=== PATIENT | female | born 1960 | race Hispanic/Latino ===

== ENCOUNTER 2017-01-25 13:21 | Outpatient (CLI) | payer BC ==
--- NOTE | 2017-01-25 15:42 | Mammography Report ---
BILATERAL DIGITAL DIAGNOSTIC MAMMOGRAM with CAD and LEFT BREAST ULTRASOUND: 01/25/17 CLINICAL: Palpable lump left breast. According to the patient, she felt a lump in her lower inner left breast about one week ago. It has gotten larger she now has a draining wound. COMPARISON:None. FINDINGS: There are bilateral scattered fibroglandular densities. No mass, suspicious architectural distortion or suspicious calcifications . Focal skin thickening and mammographic asymmetry in the lower inner left breast. There is also an air-filled cavity in the thickened skin. Ultrasound of the left breast (including all four quadrants and the retroareolar area) was performed. A heterogeneous oval mass is identified at 8 o'clock 20 cm from the nipple. It measures 3.4 x 1.2 x 3.4 cm and has fluid in the center. Echogenic reflectors consistent with air are also identified near the skin. On physical examination, the skin is reddened in the area of palpable mass with foul-smelling drainage. A gangrenous eschar is at the center of the palpable mass. IMPRESSION: Focal necrotizing infection with abscess formation in the lower inner left breast. Although tumor cannot entirely be excluded, the mammographic and ultrasound findings are more compatible with an infectious process. BI-RADS CATEGORY: 4--Suspicious RECOMMENDATION: Consultation with a breast surgeon. I discussed the findings with the patient and arranged for her to see Dr. Ashley Claros tomorrow at [facility] in [place], [place]. ACR BI-RADS MAMMOGRAPHIC CODES: 0 = Needs additional imaging evaluation; 1 = Negative; 2 = Benign; 3 = Probably benign; 4 = Suspicious; 5 = Malignant; 6 = Known biopsy-proven malignancy COMMENT: 1. Dense breast tissue, i.e., adenosis, fibrocystic changes, etc., may obscure an underlying neoplasm. 2. Approximately 10% of cancers are not detected with mammography. 3. A negative mammography report should not delay biopsy if a clinically suspicious mass is present. COMMENT: Patient follow-up letters are generated by our Shareable Social application.
== END 2017-01-25 13:22 | disposition home or self-care (01) ==
LOC: SPVWC 13:21
DX: N63 Unspecified lump in breast (principal); N64.4 Mastodynia
CPT/HCPCS: 76641; G0204; 77066

== ENCOUNTER 2017-01-26 19:35 | Inpatient (IN) | payer BC ==
[2017-01-26] MEDS ORDERED: DULCOLAX PR PRN (19:45)
[2017-01-26] MEDS ORDERED: DUONEB *Not for PRN Use IH (19:45)
[2017-01-26] MEDS ORDERED: MILK OF MAGNESIA PO PRN (19:45)
[2017-01-26] MEDS ORDERED: TYLENOL PO PRN (19:45)
[2017-01-26] MEDS ORDERED: ZOFRAN IV PRN (19:45)
[2017-01-26] MEDS ORDERED: VANCOMYCIN/NS 1 GM/250 ML 1 GM/250 ML BAG IV ONE (19:49)
--- NOTE | 2017-01-26 19:56 | History and Physical Report ---
History of Present Illness Date of admission: 01/26/17 19:35 Chief complaint: My doctor told me to come get checked out History of present illness: 56 YO Female with DM, Obesity, Depression, Asthma, PE on anticoagulation, Metabolic Syndrome directly admitted at the request of Dr. Claros for Necrotizing Left Breast infection. Pt was seen and evaluated and recommended for admission. Pt states that she has experienced redness, tenderness, and rash to the left breast for the past week, with worsening symptoms over the past 3 days. Pt denies fever, chills, CP, Palpitations, NVD, productive cough, or recent ill contacts, trauma, prolonged travel/immobility, unintentional weight loss, or night sweats. Past History Past Medical History: diabetes, pulmonary embolism, other (metabolic syndrome) Past Surgical History: tonsillectomy, Other (Gastric Bypass, TMJ, Sinus surgery x4, IVC Filter placement,) Social history: , lives with family. denies: smoking, alcohol abuse, prescription drug abuse Family history: no significant family history (reviewed) Medications and Allergies Allergies Allergy/AdvReac Type Severity Reaction Status Date / Time No Known Allergies Allergy Unverified 01/26/17 20:01 Home Medications Medication Instructions Recorded Confirmed Last Taken Type Acetaminophen with Codeine 1 each PO Q6HR PRN 01/27/17 01/27/17 Unknown History [Acetaminophen-Codeine #2 TAB] Clindamycin [Clindamycin CAP] 300 mg PO Q8H 01/27/17 01/27/17 Unknown History Cyclobenzaprine [Flexeril] 10 mg PO DAILY 01/27/17 01/27/17 Unknown History Furosemide [Lasix TAB] 40 mg PO QDAY 01/27/17 01/27/17 Unknown History Metformin HCl [Glucophage] 1,000 mg PO BID 01/27/17 01/27/17 Unknown History Mometasone/Formoterol [Dulera 100 2 puff IH BID 01/27/17 01/27/17 Unknown History Mcg/5 Mcg Inhaler] Montelukast [Singulair] 10 mg PO QPM 01/27/17 01/27/17 Unknown History Potassium Chloride [K-Dur] 1 tab PO BID 01/27/17 01/27/17 Unknown History Potassium Chloride [Potassium 01/27/17 Unknown History Chloride] Pravastatin Sodium [Pravastatin] 10 mg PO QHS 01/27/17 01/27/17 Unknown History Venlafaxine [Effexor 37.5mg tab] 112.5 mg PO QDAY 01/27/17 01/27/17 Unknown History Warfarin [Coumadin] 10 mg PO 3XW 01/27/17 01/27/17 Unknown History Warfarin [Coumadin] 15 mg PO 4XW 01/27/17 01/27/17 Unknown History Zolpidem Tartrate [Edluar SUBL] 10 mg SL QHS PRN 01/27/17 01/27/17 Unknown History glipiZIDE [Glucotrol] 5 mg PO BID 01/27/17 01/27/17 Unknown History Active Meds: Active Medications Acetaminophen (Tylenol) 650 mg PO Q4H PRN PRN Reason: Pain MILD(1-3)/Fever >100.5/ACOSTA Albuterol/Ipratropium (Duoneb 0.5 Mg-3 Mg/3 Ml Soln) 1 ampul IH Q6HRT PRN PRN Reason: Wheezing Bisacodyl (Dulcolax) 10 mg HI QDAY PRN PRN Reason: Constipation unrelieved by MOM Vancomycin HCl (Vancomycin/Ns 1 Gm/250 Ml) 1 gm in 250 mls @ 167.007 mls/hr IV ONCE ONE PRN Reason: Protocol Stop: 01/26/17 21:18 Magnesium Hydroxide (Milk Of Magnesia) 30 ml PO Q4H PRN PRN Reason: Constipation Ondansetron HCl (Zofran) 4 mg IV Q8H PRN PRN Reason: N/V unrelieved by Reglan Vancomycin HCl (Vancomycin Pharmacy To Dose) 1 each IV PKCONSULT WILIAN PRN Reason: Protocol Review of Systems All systems: negative Constitutional: other (left breast pain, redness) Exam - Constitutional General appearance: Present: mild distress, obese - EENT Eyes: Present: PERRL ENT: hearing intact, clear oral mucosa - Neck Neck: Present: supple, normal ROM - Respiratory Respiratory effort: normal Respiratory: bilateral: CTA - Cardiovascular Heart Sounds: Present: S1 & S2. Absent: rub, click - Extremities Extremities: pulses symmetrical, No edema Extremity abnormal: erythema, tenderness (left breast) Peripheral Pulses: within normal limits - Abdominal General gastrointestinal: Present: soft, non-tender, non-distended, normal bowel sounds Female genitourinary: Present: normal - Integumentary Integumentary: Present: clear, warm, dry - Musculoskeletal Musculoskeletal: gait normal, strength equal bilaterally - Psychiatric Psychiatric: appropriate mood/affect, intact judgment & insight - Neurologic Neurologic: CNII-XII intact, moves all extremities Results - Labs CBC & Chem 7: 01/26/17 22:18 01/26/17 22:18 Assessment and Plan - Patient Problems (1) Left breast abscess Current Visit: Yes Status: Acute Plan to address problem: IV abx, surgery consulted for debridement, supportive care,pain control (2) Pulmonary embolism Current Visit: Yes Status: Acute Qualifiers: Pulmonary embolism type: P Chronicity: C Acute cor pulmonale presence: A Plan to address problem: IVC filter in place, INR, hold anticoagulation for now, hematology consulted. (3) Elevated INR (international normalized ratio) Current Visit: Yes Status: Acute Plan to address problem: INR< hold anticoagulation for now as per hematology (4) Metabolic syndrome Current Visit: Yes Status: Acute Plan to address problem: Balanced diet, increased physical activity (5) Diabetes Current Visit: Yes Status: Acute Qualifiers: Diabetes mellitus type: D Diabetes mellitus complication status: D Diabetes mellitus complication detail: D Diabetic retinopathy severity: D Proliferative retinopathy type: P Diabetes mellitus macular edema: D Diabetes mellitus correction insulin use: D Laterality: L Chronic kidney disease stage: C Plan to address problem: ADA diet, insulin, accu check (6) Asthma Current Visit: Yes Status: Acute Qualifiers: Asthma severity: mild intermittent Asthma complication type: A Plan to address problem: supplemental oxygen, nebs prn as clinically indicated. (7) DVT prophylaxis Current Visit: Yes Status: Acute
[2017-01-26] MEDS ORDERED: VANCOMYCIN PHARMACY TO DOSE IV SCH (20:00)
[2017-01-26] MEDS ORDERED: PROVENTIL IH PRN (20:05)
[2017-01-26] MEDS ORDERED: VANCOMYCIN 2,000 MG in NACL 0.9% 500 ML 500 ML IV ONE (22:00)
[2017-01-26 22:47] LABS: Basophils % (Auto) 0.9 % (0.0-1.8); Eosinophils % (Auto) 2.8 % (0.0-4.3); Hemoglobin 10.2 gm/dl (10.1-14.3); Mean Corpuscular HGB Conc 33 % (30-34); Mean Corpuscular Hemoglobin 30 pg (28-32); Mean Corpuscular Volume 92 fl (79-97); Platelet Count 283 K/mm3 (140-440); Red Blood Count 3.37 M/mm3 (3.65-5.03); Red Cell Distribution Width 14.6 % (13.2-15.2); White Blood Count 6.1 K/mm3 (4.5-11.0)
[2017-01-26 23:01] LABS: Alanine Aminotransferase 12 units/L (7-56); Albumin 3.7 g/dL (3.9-5); Alkaline Phosphatase 69 units/L (35-129); Anion Gap 15 mmol/L; BUN/Creatinine Ratio 18.33; Blood Urea Nitrogen 11 mg/dL (7-17); Calcium 8.9 mg/dL (8.4-10.2); Carbon Dioxide 30 mmol/L (22-30); Glucose 155 mg/dL (65-100); Potassium 4.3 mmol/L (3.6-5.0); Sodium 135 mmol/L (137-145); Total Protein 7.5 g/dL (6.3-8.2)
--- NOTE | 2017-01-26 23:15 | Progress Note ---
Assessment and Plan This is a 56 year old lady with left breast necrotizing fasciitis of the left lower inner quadrant. 1. Patient was scheduled for OR January 27, 2017, but will hold until now until INR corrected, INR over 6 and consulted hospitalist for admission. 2. Dr. Fontana consulted. 3. IVF antibiotics of Vancomycin and blood cultures. 4. Plan for left breast debridement once INR at least 3 or less, will plan for operating room on Monday, January 28, 2017. Dr. Fontana will administer FFP and vitamin K and will evaluate patient if coumadin is still needed given PE 2 years ago. 5. NPO at midnight and will recheck INR after FFP and vitamin K is administered. 6. Will arrange for home health at discharge. - Patient Problems (1) Diabetes Current Visit: Yes Status: Acute Qualifiers: Diabetes mellitus type: type 2 Diabetes mellitus complication status: with skin complications Diabetes mellitus complication detail: with other skin complication Diabetic retinopathy severity: D Proliferative retinopathy type : P Diabetes mellitus macular edema: D Diabetes mellitus manager terminal insulin use: unspecified skilled nursing insulin use status Laterality: L Chronic kidney disease stage: C Qualified Code(s): E11.628 - Type 2 diabetes mellitus with other skin complications Plan to address problem: Diabetes control (2) Breast infection in female Current Visit: Yes Status: Acute Plan to address problem: Surgical debridement (3) Overweight Current Visit: Yes Status: Acute (4) Coagulation defect Onset Date: ~01/26/17 Current Visit: Yes Status: Acute Plan to address problem: Dr. Fontana consulted Subjective Date of service: 01/26/17 Principal diagnosis: left breast infection, abnormal INR, diabetic Interval history: This is a 56 year old lady seen in my office late this afternoon for evaluation of left breast changes. She reports greater than a 1 week history of left breast changes. She was recently seen by Dr. Sherman on Monday with concerns of left breast infection. Physical today in my office with findings of left lower inner quadrant breast necrotising fasciitis with recommendation for debridement. Patient with a history of a pulmonary embolism and has been on Coumadin for 2 years and no recent INR-over 3 months. Patient was directed to lab this evening with plans of going to the OR in the morning but admitted given INR over 6. Patient afebrile and was started on Clindamycin by outside physician. Patient also a known diabetic with HbA1c 7. Objective - Constitutional General appearance: Present: no acute distress, well-nourished - EENT Eyes: PERRL, EOM intact ENT: hearing intact, clear oral mucosa, dentition normal Ears: bilateral: normal - Neck Neck: supple, normal ROM - Respiratory Respiratory effort: normal Respiratory: bilateral: CTA - Breasts Breasts: other (left breast necrosis around the 8:00 position with wet eschar of 5-6 cm, odorous; right breast with normal findings) - Cardiovascular Rhythm: regular Extremities: no ischemia, pulses intact, pulses symmetrical, No edema, normal temperature, normal color, Full ROM - Gastrointestinal General gastrointestinal: Present: soft, non-tender, non-distended Rectal Exam: deferred - Genitourinary Female genitourinary: deferred - Integumentary Integumentary: clear, warm, dry - Musculoskeletal Musculoskeletal: strength equal bilaterally - Neurologic Neurologic: CNII-XII intact, moves all extremities, gait normal - Psychiatric Psychiatric: appropriate mood/affect, intact judgment & insight, memory intact, cooperative - Labs CBC & Chem 7: 01/26/17 22:18 01/26/17 22:18 Labs: Abnormal lab results 01/26/17 01/26/17 01/26/17 Range/Units 22:18 22:18 22:18 RBC 3.37 L (3.65-5.03) M/mm3 [place] % (Auto) 10.8 H (0.0-7.3) % PT 61.4 H (12.2-14.9) Sec. Sodium 135 L (137-145) mmol/L Chloride 94.0 L (98-107) mmol/L Creatinine 0.6 L (0.7-1.2) mg/dL Glucose 155 H (65-100) mg/dL Albumin 3.7 L (3.9-5) g/dL
[2017-01-26 23:17] LABS: INR 6.62 (0.87-1.13)
[2017-01-27] MEDS ORDERED: AMBIEN PO PRN (02:34)
[2017-01-27] MEDS ORDERED: COLACE PO PRN (02:37)
[2017-01-27] MEDS: EFFEXOR PO SCH ×3 (08:11→21:40)
[2017-01-27] MEDS: GLUCOPHAGE PO SCH ×2 (08:12→17:52)
[2017-01-27] MEDS: CLEOCIN PO SCH ×3 (08:12→21:40)
[2017-01-27] MEDS: GLUCOTROL PO SCH ×2 (08:12→17:52)
[2017-01-27] MEDS ORDERED: VITAMIN K (ADULT ONLY) SUB-Q ONE ×2 (08:47→18:00)
--- NOTE | 2017-01-27 08:55 | Hem/Onc Consultation ---
History of Present Illness - Reason for Consult Consult date: 01/27/17 - History of Present Illness Patient is a 56-year-old female who has history of diabetes who presented to the hospital with evidence of left breast abscess and wet gangrene. She had had evidence of a lump in the left breast about 2 weeks ago which ended up becoming an abscess. Patient is to get surgery to remove the wet gangrene by Dr. Claros. Patient however is on Coumadin and has not had her INR checked for at least 3 months. Her INR yesterday was greater than 6. Patient is admitted to the hospital for management. She denies any active bleeding. Does have some bruising on the legs. 3 years ago patient had undergone multiple surgeries and was on bed rest for about 24 days. She had had [employer] leak at that time after sinus surgery. Patient developed left sided deep venous thrombosis of the lower extremity and extensive pulmonary emboli. She has been on anticoagulation ever since. She did change insurances and has not followed with anybody for her INR for at least 3 months. she does not smoke. Medications and Allergies Allergies Allergy/AdvReac Type Severity Reaction Status Date / Time No Known Allergies Allergy Unverified 01/26/17 20:01 Home Medications Medication Instructions Recorded Confirmed Last Taken Type Acetaminophen with Codeine 1 each PO Q6HR PRN 01/27/17 01/27/17 Unknown History [Acetaminophen-Codeine #2 TAB] Clindamycin [Clindamycin CAP] 300 mg PO Q8H 01/27/17 01/27/17 Unknown History Cyclobenzaprine [Flexeril] 10 mg PO DAILY 01/27/17 01/27/17 Unknown History Furosemide [Lasix TAB] 40 mg PO QDAY 01/27/17 01/27/17 Unknown History Metformin HCl [Glucophage] 1,000 mg PO BID 01/27/17 01/27/17 Unknown History Mometasone/Formoterol [Dulera 100 2 puff IH BID 01/27/17 01/27/17 Unknown History Mcg/5 Mcg Inhaler] Montelukast [Singulair] 10 mg PO QPM 01/27/17 01/27/17 Unknown History Potassium Chloride [K-Dur] 1 tab PO BID 01/27/17 01/27/17 Unknown History Potassium Chloride [Potassium 01/27/17 Unknown History Chloride] Pravastatin Sodium [Pravastatin] 10 mg PO QHS 01/27/17 01/27/17 Unknown History Venlafaxine [Effexor 37.5mg tab] 112.5 mg PO QDAY 01/27/17 01/27/17 Unknown History Warfarin [Coumadin] 10 mg PO 3XW 01/27/17 01/27/17 Unknown History Warfarin [Coumadin] 15 mg PO 4XW 01/27/17 01/27/17 Unknown History Zolpidem Tartrate [Edluar SUBL] 10 mg SL QHS PRN 01/27/17 01/27/17 Unknown History glipiZIDE [Glucotrol] 5 mg PO BID 01/27/17 01/27/17 Unknown History Active Meds: Active Medications Acetaminophen (Tylenol) 650 mg PO Q4H PRN PRN Reason: Pain MILD(1-3)/Fever >100.5/ACOSTA Acetaminophen/Codeine Phosphate (Tylenol #3) 1 tab PO Q6H PRN PRN Reason: Pain, Moderate (4-6) Albuterol (Proventil) 2.5 mg IH Q6HRT PRN PRN Reason: Wheezing Bisacodyl (Dulcolax) 10 mg DC QDAY PRN PRN Reason: Constipation unrelieved by MOM Cholecalciferol (Vitamin D3) 5,000 unit PO QDAY [facility] Clindamycin HCl (Cleocin) 300 mg PO TID [facility] Last Admin: 01/27/17 08:12 Dose: 300 mg Cyclobenzaprine HCl (Flexeril) 10 mg PO DAILY [facility] Docusate Sodium (Colace) 100 mg PO PRN PRN PRN Reason: Constipation Ferrous Sulfate (Feosol) 325 mg PO QDAY [facility] Furosemide (Lasix) 40 mg PO QDAY [facility] Glipizide (Glucotrol) 5 mg PO BIDDIAB [facility] Last Admin: 01/27/17 08:12 Dose: 5 mg Vancomycin HCl 1,500 mg/ (Sodium Chloride) 530 mls @ 333.333 mls/hr IV Q12H [facility] Sodium Chloride (Nacl 0.9% 500 Ml) 500 mls @ 0 mls/hr IV ONCE ONE PRN Reason: As Directed Stop: 01/27/17 08:45 Magnesium Hydroxide (Milk Of Magnesia) 30 ml PO Q4H PRN PRN Reason: Constipation Metformin HCl (Glucophage) 1,000 mg PO BIDDIAB [facility] Last Admin: 01/27/17 08:12 Dose: 1,000 mg Montelukast Sodium (Singulair) 10 mg PO QHS [facility] Ondansetron HCl (Zofran) 4 mg IV Q8H PRN PRN Reason: N/V unrelieved by Reglan Phytonadione (Vitamin K (Adult Only)) 10 mg SUB-Q ONCE ONE Stop: 01/27/17 08:48 Phytonadione (Vitamin K (Adult Only)) 10 mg SUB-Q ONCE ONE Stop: 01/28/17 08:50 Potassium Chloride (K-Dur) 10 meq PO BID [facility] Simvastatin (Zocor) 10 mg PO QHS [facility] Vancomycin HCl (Vancomycin Pharmacy To Dose) 1 each IV PKCONSULT [facility] PRN Reason: Protocol Venlafaxine HCl (Effexor) 37.5 mg PO TID [facility] Last Admin: 01/27/17 08:11 Dose: 37.5 mg Zolpidem Tartrate (Ambien) 10 mg PO QHS PRN PRN Reason: Insomnia Exam - Constitutional Vitals: Last Vital Signs Temp 98.6 F 01/26/17 22:45 Pulse 84 01/27/17 00:00 Resp 20 01/27/17 00:00 BP 126/81 01/26/17 22:45 Pulse Ox 99 01/26/17 22:45 Pain Intensity (0-10): denies any pain General appearance: no acute distress, malodorous Performance status: 2- selfcare, ambulatory - Neck Neck: supple - Respiratory Respiratory effort: Positive: normal Respiratory: bilateral: CTA - Breasts Breasts: left: other (evidence of wet gangrene wet gangrene in the medial aspect of the left breast) - Cardiovascular Rhythm: regular Extremities: abnormal (left foot has a soft cast) - Gastrointestinal General gastrointestinal: Present: soft - Musculoskeletal Musculoskeletal: strength equal bilaterally - Psychiatric Psychiatric: appropriate mood/affect Results - Labs lab Results: Laboratory Results - last 24 hr 01/26/17 01/26/17 01/26/17 22:18 22:18 22:18 WBC 6.1 RBC 3.37 L Hgb 10.2 Hct 31.0 MCV 92 MCH 30 MCHC 33 RDW 14.6 Plt Count 283 Lymph % (Auto) 21.3 [place] % (Auto) 10.8 H Eos % (Auto) 2.8 Baso % (Auto) 0.9 Lymph # 1.3 [place] # 0.7 Eos # 0.2 Baso # 0.1 Seg Neutrophils % 64.2 Seg Neutrophils # 3.9 PT 61.4 H INR 6.62 H* Sodium 135 L Potassium 4.3 Chloride 94.0 L Carbon Dioxide 30 Anion Gap 15 BUN 11 Creatinine 0.6 L Estimated GFR > 60 BUN/Creatinine Ratio 18.33 Glucose 155 H Calcium 8.9 Total Bilirubin 0.40 AST 15 ALT 12 Alkaline Phosphatase 69 Total Protein 7.5 Albumin 3.7 L Albumin/Globulin Ratio 1.0 Assessment and Plan At this time we will go head and give her fresh frozen plasma and vitamin K to reverse her INR. Once the INR is below 2-3, she should be able to go through surgery. Dr. Claros is aware of that. Once surgery is done, we can put her on Lovenox and either put her on Ahlquist or Coumadin. I will do her workup etc. for hypercoagulable state as outpatient to see if she would need long-term anticoagulation. Would continue anticoagulation for postop purposes after surgery is done. I have ordered 4 units of FFP and vitamin K. We will check INR in the evening and see if she would need more FFP.
[2017-01-27] MEDS: FLEXERIL PO SCH (09:53)
[2017-01-27] MEDS: FEOSOL PO SCH (09:53)
[2017-01-27] MEDS: LASIX PO SCH (09:55)
[2017-01-27] MEDS: K-DUR PO SCH ×2 (09:55→21:40)
[2017-01-27] MEDS: VITAMIN D3 PO SCH (09:55)
--- NOTE | 2017-01-27 10:36 | Progress Note ---
Assessment and Plan Assessment and plan: --Supratherapeutic INR/Coumadin toxicity No evidence of bleeding, vitamin K, FFP's, closely monitoring and not an H&H Hematology oncology is following --Breast criticizing fasciitis left breast/possible breast debridement tomorrow per the surgeon Continue supportive care --Type 2 diabetes mellitus moderate control Continue current oral hypoglycemics, Accu-Chek sliding scale coverage and ADA diet and insulin as needed, patient's hemoglobin A1c is 7.1 --Hypertension; moderate control Continue current antihypertensives and medications --History of PE; on Coumadin Supratherapeutic INR, hold Coumadin and closely monitor INR target between 2 and 3 --Obesity; Counseling done advised dietary modification and exercise as tolerated and weight reduction and medically stable Patient may also benefit by bariatric surgical consultation for weight reduction program upon discharge as outpatient --DVT prophylaxis; patient is already supratherapeutic INR Use SCDs Patient's condition treatment plan discussed in detail with the patient and her at the bedside Consults and recommendations noted and appreciated History Interval history: Patient seen and evaluated this morning in her through medical records reviewed Admitted with supratherapeutic INR secondary to Coumadin toxicity No episodes of bleeding, patient is also scheduled for possible breast surgery tomorrow Patient has no new complaints, vital signs stable Hospitalist Physical - Constitutional Vitals: Temp Pulse Resp BP Pulse Ox 98.0 F 90 18 136/83 100 01/27/17 08:05 01/27/17 08:05 01/27/17 08:05 01/27/17 08:05 01/27/17 08:05 General appearance: Present: no acute distress, well-nourished, obese - EENT Eyes: Present: PERRL, EOM intact - Neck Neck: Present: supple, normal ROM - Respiratory Respiratory effort: normal Respiratory: bilateral: diminished, negative: rales, rhonchi, wheezing - Cardiovascular Rhythm: regular Heart Sounds: Present: S1 & S2 - Extremities Extremities: no ischemia, pulses intact, pulses symmetrical - Abdominal General gastrointestinal: soft, non-tender, non-distended, normal bowel sounds - Integumentary Integumentary: Present: clear, warm - Psychiatric Psychiatric: appropriate mood/affect, cooperative - Neurologic Neurologic: CNII-XII intact, moves all extremities Results - Labs CBC & Chem 7: 01/26/17 22:18 01/26/17 22:18 Labs: Laboratory Last Values WBC 6.1 K/mm3 (4.5-11.0) 01/26/17 22:18 RBC 3.37 M/mm3 (3.65-5.03) L 01/26/17 22:18 Hgb 10.2 gm/dl (10.1-14.3) 01/26/17 22:18 Hct 31.0 % (30.3-42.9) 01/26/17 22:18 MCV 92 fl (79-97) 01/26/17 22:18 MCH 30 pg (28-32) 01/26/17 22:18 MCHC 33 % (30-34) 01/26/17 22:18 RDW 14.6 % (13.2-15.2) 01/26/17 22:18 Plt Count 283 K/mm3 (140-440) 01/26/17 22:18 Lymph % (Auto) 21.3 % (13.4-35.0) 01/26/17 22:18 [place] % (Auto) 10.8 % (0.0-7.3) H 01/26/17 22:18 Eos % (Auto) 2.8 % (0.0-4.3) 01/26/17 22:18 Baso % (Auto) 0.9 % (0.0-1.8) 01/26/17 22:18 Lymph # 1.3 K/mm3 (1.2-5.4) 01/26/17 22:18 [place] # 0.7 K/mm3 (0.0-0.8) 01/26/17 22:18 Eos # 0.2 K/mm3 (0.0-0.4) 01/26/17 22:18 Baso # 0.1 K/mm3 (0.0-0.1) 01/26/17 22:18 Seg Neutrophils % 64.2 % (40.0-70.0) 01/26/17 22:18 Seg Neutrophils # 3.9 K/mm3 (1.8-7.7) 01/26/17 22:18 PT 61.4 Sec. (12.2-14.9) H 01/26/17 22:18 INR 6.62 (0.87-1.13) H* 01/26/17 22:18 Sodium 135 mmol/L (137-145) L 01/26/17 22:18 Potassium 4.3 mmol/L (3.6-5.0) 01/26/17 22:18 Chloride 94.0 mmol/L (98-107) L 01/26/17 22:18 Carbon Dioxide 30 mmol/L (22-30) 01/26/17 22:18 Anion Gap 15 mmol/L 01/26/17 22:18 BUN 11 mg/dL (7-17) 01/26/17 22:18 Creatinine 0.6 mg/dL (0.7-1.2) L 01/26/17 22:18 Estimated GFR > 60 ml/min 01/26/17 22:18 BUN/Creatinine Ratio 18.33 % 01/26/17 22:18 Glucose 155 mg/dL (65-100) H 01/26/17 22:18 Calcium 8.9 mg/dL (8.4-10.2) 01/26/17 22:18 Total Bilirubin 0.40 mg/dL (0.1-1.2) 01/26/17 22:18 AST 15 units/L (5-40) 01/26/17 22:18 ALT 12 units/L (7-56) 01/26/17 22:18 Alkaline Phosphatase 69 units/L (35-129) 01/26/17 22:18 Total Protein 7.5 g/dL (6.3-8.2) 01/26/17 22:18 Albumin 3.7 g/dL (3.9-5) L 01/26/17 22:18 Albumin/Globulin Ratio 1.0 % 01/26/17 22:18 Blood Type B POSITIVE 01/27/17 09:16
[2017-01-27] MEDS: VANCOMYCIN 1,500 MG in NACL 0.9% 500 ML 500 ML IV SCH (10:41)
--- NOTE | 2017-01-27 11:31 | Admit Criteria Form ---
Admission Criteria Documentation: HEMATOLOGY GRG Clinical Indications for Admission to Inpatient Care ( [place]/check or initial the applicable condition/criteria) Hospital Admission is needed for appropriate care of the patient because 1 or more of the following: [ ]I. Severe anemia indicated by 1 or more of the following (1)(2)(3) [ ]a) Altered mental status [ ]b) Chest pain [ ]c) Exertional dyspnea [ ]d) Syncope [ ]e) Other findings suggesting inadequate perfusion [ ]f) Treatment with transfusion or volume replacement is ineffective at resolving 1 or more of the following [A]: [ ]i) Tachycardia [ ]ii) Orthostatic vital sign changes as indicated by 1 or more of the following (4) [ ]1) Fall in SBP of 20 mm Hg or more 1 to 3 minutes after patient sits or stands from recumbent position [ ]2) Fall in DBP of 10 mm Hg or more 1 to 3 minutes after patient sits or stands from recumbent position [ ]II. High-risk febrile neutropenia [B] as indicated by 1 or more of the following(5)(6)(7)(8)(9) [ ]a) Profound neutropenia (C) anticipated to extend for more than 7 days [ ]b) Hemodynamic instability [ ]c) Hypoxemia [ ]d) Tachypnea [ ]e) Altered mental status [ ]f) Altered mental status [ ]g) New onset vomiting or diarrhea [ ]h) Oral or gastrointestinal mucositis that interferes with swallowing or causes severe diarrhea [ ]i) Focal infection (eg cellulitis, pneumonia, central line or catheter infection, perirectal abscess) [ ]j) Renal insufficiency (e.g., GFR of less than 30 mL/min/1.73m2 ( 0.5 mL/sec/1.73m2) [ ]k) Severe liver dysfunction (transaminase levels greater than 5 times normal) [ ]l) Platelet count less than 50,000/mm3 (50 x109/L)(6) [ ]m) Leukemia or lymphoma induction therapy [ ]n) Leukemia not in complete remission or with evidence of disease progression [ ]o) Bone marrow transplant patient [ ]p) Alemtuzumab being used for therapy [ ]q) [employer] Association for Supportive Care in Cancer (MASCC) Risk Index score of < 21 [o) D](7)(10)(11) [ ]III. High-risk low platelet count as indicated by 1 or more of the following( 12)(13)(14) [ ]a) Severe or life-threatening bleeding (eg, intracranial, major gastrointestinal, or extensive mucosal bleeding), with any reduced platelet count [ ]b) Platelet count less than 20,000/mm3 (20 x109/L) with any active bleeding [ ]c) Platelet count less than 10,000/mm3 (10 x109/L) with minor purpura or petechiae [ ]d) Platelet count less than 5000/mm3 (5 x109/L) [ ]e) Low platelet count with hemolytic anemia [ ]IV. Active hemolysis with high-risk findings, including 1 or more of the following(15)(16)(17)(18)(19) [ ]a) Hematocrit less than 25% (0.25) [ ]b) Rapidly progressing anemia c) Thrombocytopenia(12)(13) [ ]d) Evidence of thrombosis or new renal insufficiency (eg hemolytic uremic syndrome) (20)(21)(22) [ ]V. Henonch-Schonlein purpura(23) [ ]Vl. Bleeding disorder with high-risk features (eg, hemophilia, coagulopathy) as indicated by 1 or more of the following (24)(25)(26)(27)(28) [ ]a) Central nervous system bleeding [ ]b) Retroperitoneal bleeding [ ]c) Retropharyngeal bleeding [ ]d) Gastrointestinal bleeding (29) [ ]e) Alveolar hemorrhage (30) [ ]f) Purpura [ ]f) Disseminated intravascular coagulation(31)(32) [ ]g) Major trauma(33)(34)(35) [ ]h) Deep laceration [ ]i) Head trauma(36) [ ]j) Traumatic or spontaneous expanding internal hematoma (eg retroperitonal occular) [ ]k) Failed outpatient management [ ]Robert. Severe over-anticoagulation or high-risk situation as indicated by 1 or more of the following(37)(38)(39) [ ]a) Active bleeding(40) [ ]b) International normalized ratio 5 or greater and rapid reversal needed [ ]c) International normalized ratio 9 or greater [ ]VIIl. Congenital immunodeficiency states with severe morbidity as indicated by 1 or more of the following(41)(42)(43)(44) [ ]a) Severe infection [ ]b) Bone marrow transplant needed [ ]lX. Hyperviscosity syndrome with high-risk indicators indicated by 1 or more of the following (19)(45)(46)(47)(48) [ ]a) Polycythemia vera with hematocrit greater than 60% (0.60) [ ]b) Elevated platelet count associated with thrombosis, bleeding, or life-threatening organ dysfunction [ ]c) Severe signs or symptoms from elevated red cell, white cell, or protein levels, including 1 or more of the following: [ ]i) Altered mental status that is severe or psersistent [ ]ii) Dyspnea [ ]iii) Chest x-ray infiltrate [ ]iv) Visual changes [ ]v) Retinal abnormalities [ ]vi) Neuromuscular symptoms [ ]vii) Suspected ischemia or thrombosis [ ]viii) Bleeding [ ]X. Cryoglobulinemia requiring inpatient care due 1 or more of the following:( 49) [ ]a) Severe systemic effects (eg, glomerunephritis, other end organ damage due to vasculitis) [ ]b) Hyperviscosity (eg, acute thrombosis) [ ]c) Need for specified treatment that can only be managed in inpatient setting [ ]Xl. Methemoglobinemia and 1 or more of the following (50)(51): [ ]a) Hypotension [ ]b) Methemoglobinemia [ ]c) Cyanosis [ ]d) Seizure [ ]e) Lactic acidosis [ ]f) other severe symptoms due to tissue hypoxia (52)(53) [ ]Xll. Spleen trauma with blood loss or other need for acute (medical) treatment (34) [ ]Xlll. Transfusion reaction requiring inpatient care (eg, anaphylaxis, hemolysis, transfusion-related lung injury Hemodynamic instability)(54)(55)(56) [ ]XlV.Thrombotic disorder requiring inpatient care (eg, heparin-induced thrombocytopenia, castartrophic antiphospholipid syndrome, thrombotic thrombocytopenia) as indicated by 1 or more of the following (12)(57)(58)(59)(60): [ ]a) Need for inpatient treatment (e.g. IV anticoagulation, IV immunosuppression, plasma exchange) [ ]b) Need for inpatient monitoring (e.g. frequent laboratory testing, response to therapy) [X ]XV. Hematology condition symptom or finding for which emergency and observation care have failed or are not considered appropriate (See General Criteria: Observation Care General Admission Criteria or Pediatric General Admission Criteria guideline as appropriate The original [facility] content created by [facility] has been revised. The portions of the content which have been revised are identified through the use of italic text or in bold, and [facility] has neither reviewed nor approved the modified material. All other unmodified content is copyright [facility]. Please see references footnoted in the original [facility] edition 2017 Admission Criteria Met: Yes
[2017-01-27] MEDS ORDERED: NACL 0.9% 500 ML 500 ML IV ONE (12:00)
[2017-01-27] MEDS: SINGULAIR PO SCH (21:39)
[2017-01-27] MEDS: TYLENOL #3 PO PRN (21:40)
[2017-01-27] MEDS: ZOCOR PO SCH (21:40)
[2017-01-27] MEDS ORDERED: D5W/0.45% NACL/KCL 20 MEQ 20 MEQ/1,000 ML BAG IV SCH (23:00)
[2017-01-28] MEDS: VANCOMYCIN 1,500 MG in NACL 0.9% 500 ML 500 ML IV SCH (01:16)
[2017-01-28 05:39] LABS: Basophils % (Auto) 1.1 % (0.0-1.8); Eosinophils % (Auto) 5.4 % (0.0-4.3); Hematocrit 28.4 % (30.3-42.9); Hemoglobin 9.5 gm/dl (10.1-14.3); Mean Corpuscular HGB Conc 34 % (30-34); Mean Corpuscular Hemoglobin 30 pg (28-32); Mean Corpuscular Volume 90 fl (79-97); Platelet Count 293 K/mm3 (140-440); Red Blood Count 3.15 M/mm3 (3.65-5.03); Red Cell Distribution Width 14.2 % (13.2-15.2); White Blood Count 4.8 K/mm3 (4.5-11.0)
[2017-01-28 05:54] LABS: INR 1.59 (0.87-1.13)
[2017-01-28 05:55] LABS: Partial Thromboplastin Time 41.7 Sec. (24.2-36.6)
--- NOTE | 2017-01-28 07:24 | Anesthesia Consultation ---
Anesthesia Consult and Med Hx Date of service: 01/28/17 - Airway Anesthetic Teeth Evaluation: Good ROM Head & Neck: Adequate Mental/Hyoid Distance: Adequate Mallampati Class: Class II Intubation Access Assessment: Probably Good - Pulmonary Exam CTA: Yes - Cardiac Exam Cardiac Exam: RRR - Pre-Operative Health Status ASA Pre-Surgery Classification: ASA3 Proposed Anesthetic Plan: General - Pulmonary Hx Smoking: No Hx Asthma: Yes Hx Respiratory Symptoms: Yes (history of PE after last surgery, has IVC filter now) COPD: No Hx Pneumonia: No - Cardiovascular System Hx Hypertension: No - Central Nervous System Hx Psychiatric Problems: Yes (chronic depression) - Endocrine Hx End Stage Renal Disease: No Hx Non-Insulin Dependent Diabetes: Yes - Hematic Hx Anemia: Yes - Other Systems Hx Cancer: No Hx Obesity: Yes
--- NOTE | 2017-01-28 07:24 | Anesthesia Day of Surgery ---
Anesthesia Day of Surgery - Day of Surgery Patient Examined: Yes Patient H&P Reviewed: Yes Patient is NPO: Yes
[2017-01-28] MEDS ORDERED: DIPRIVAN 10 MG/ML IV ONE (07:41)
[2017-01-28] MEDS ORDERED: XYLOCAINE MPF 2% ONE (07:41)
[2017-01-28] MEDS ORDERED: SUBLIMAZE ONE (07:41)
[2017-01-28] MEDS: CLEOCIN PO SCH ×3 (07:54→21:18)
[2017-01-28] MEDS: EFFEXOR PO SCH ×3 (07:54→21:18)
[2017-01-28] MEDS: GLUCOPHAGE PO SCH ×2 (07:55→17:53)
[2017-01-28] MEDS: GLUCOTROL PO SCH ×2 (07:55→17:53)
--- NOTE | 2017-01-28 08:19 | Operative Report ---
Operative Report Operative Report: Date of procedure: 01/28/2017 Pre-operative diagnosis: Left breast necrotizing fasciitis and infection of the left lower inner quadrant [] Post-operative diagnosis: Same Procedure name(s): Left breast necrotizing fasciitis debridement Surgeon: Janie Claros M.D. Anesthesia: Gen. Findings: Left breast necrotizing infection at the 8 o'clock position 15-18 cm from the nipple wet gangrene area of 6 x 3 cm Complications: None Drains: None Estimated blood loss: Minimal Disposition: PACU in good condition Indications for operative procedure:This is a 56 year old lady with left breast necroitizing infection of the lower inner quadrant. Patient was seen and evaluated late afternoon and was admitted to the hospital. INR at admission was over 6.0 and surgery delayed from yesterday until this morning. She's been on coumadin for over 2 years for history of pulmonary embolism and last INR drawn over 3 months ago. Hematology consulted and she was given FFP and vitamin K with INR 1.5 this morning. She was consented for the above procedure and wished to proceed. Procedure in detail: Patient was taken to the operating room. She was laid supine and general anesthesia was administered. The left breast was prepped an draped in the normal sterile operative fashion. Known left breast necrotizing infection at the 8:00 position 15-18 cm from the nipple was identified, foul odor present with wet eschar. Using a 10 blade knife skin incision was made to encompass the area of the necrotizing infection to also include surrounding healthy tissue with dissection taken down to healthy tissue down to pectoralis muscle. The area was debrdedied to healthy tissues using a 10 blade knife. Breast cavity was irrigated with antibiotic irrigate and area packed. Hemostasis was obtained. She tolerated surgery very well and was awaken from anesthesia without any complications. She was transported to PACU in good condition.
[2017-01-28] MEDS ORDERED: NACL 0.9% IR ONE (08:29)
[2017-01-28] MEDS ORDERED: NEOSPORIN GU IR ONE (08:29)
--- NOTE | 2017-01-28 09:15 | Progress Note ---
Assessment and Plan Assessment and plan: --Left Breast necrotizing fasciitis s/p debridement tolerated the procedure well Discussed with the surgeon, advised clindamycin, hold anticoagulation, dressing change tomorrow, possible discharge tomorrow if stable --Supratherapeutic INR/Coumadin toxicity Status post FFP and vitamin K, INR significantly decreased, hold off anticoagulation, hematology following --Type 2 diabetes mellitus moderate control Continue current oral hypoglycemics, Accu-Chek sliding scale coverage and ADA diet and insulin as needed, patient's hemoglobin A1c is 7.1 --Hypertension; moderate control Continue current antihypertensives and medications --History of PE; hold Coumadin, follow hematology evaluation and recommendations --Obesity; Counseling done advised dietary modification and exercise as tolerated and weight reduction and medically stable Patient may also benefit by bariatric surgical consultation for weight reduction program upon discharge as outpatient --DVT prophylaxis; Lovenox, Use SCDs Patient's condition treatment plan discussed in detail with the patient and her at the bedside Consults and recommendations noted and appreciated History Interval history: Patient seen and evaluated medical records reviewed Underwent surgical debridement, feels better Alert awake oriented 3 not in acute distress Hospitalist Physical - Constitutional Vitals: Temp Pulse Resp BP Pulse Ox 97.9 F 82 18 120/73 96 01/27/17 22:01 01/27/17 22:01 01/28/17 01:57 01/27/17 22:01 01/28/17 01:57 General appearance: Present: no acute distress, well-nourished, obese - EENT Eyes: Present: PERRL, EOM intact - Neck Neck: Present: supple, normal ROM - Respiratory Respiratory effort: normal Respiratory: negative: rales, rhonchi, wheezing - Cardiovascular Rhythm: regular Heart Sounds: Present: S1 & S2 - Extremities Extremities: no ischemia, pulses intact, No edema - Abdominal General gastrointestinal: soft, non-tender, non-distended, normal bowel sounds - Integumentary Integumentary: Present: clear, warm - Psychiatric Psychiatric: appropriate mood/affect, cooperative - Neurologic Neurologic: CNII-XII intact, moves all extremities Results - Labs CBC & Chem 7: 01/28/17 05:03 01/26/17 22:18 Labs: Laboratory Last Values WBC 4.8 K/mm3 (4.5-11.0) 01/28/17 05:03 RBC 3.15 M/mm3 (3.65-5.03) L 01/28/17 05:03 Hgb 9.5 gm/dl (10.1-14.3) L 01/28/17 05:03 Hct 28.4 % (30.3-42.9) L 01/28/17 05:03 MCV 90 fl (79-97) 01/28/17 05:03 MCH 30 pg (28-32) 01/28/17 05:03 MCHC 34 % (30-34) 01/28/17 05:03 RDW 14.2 % (13.2-15.2) 01/28/17 05:03 Plt Count 293 K/mm3 (140-440) 01/28/17 05:03 Lymph % (Auto) 29.0 % (13.4-35.0) 01/28/17 05:03 [place] % (Auto) 11.6 % (0.0-7.3) H 01/28/17 05:03 Eos % (Auto) 5.4 % (0.0-4.3) H 01/28/17 05:03 Baso % (Auto) 1.1 % (0.0-1.8) 01/28/17 05:03 Lymph # 1.4 K/mm3 (1.2-5.4) 01/28/17 05:03 [place] # 0.6 K/mm3 (0.0-0.8) 01/28/17 05:03 Eos # 0.3 K/mm3 (0.0-0.4) 01/28/17 05:03 Baso # 0.1 K/mm3 (0.0-0.1) 01/28/17 05:03 Seg Neutrophils % 52.9 % (40.0-70.0) 01/28/17 05:03 Seg Neutrophils # 2.5 K/mm3 (1.8-7.7) 01/28/17 05:03 PT 19.8 Sec. (12.2-14.9) H 01/28/17 05:03 INR 1.59 (0.87-1.13) H 01/28/17 05:03 APTT 41.7 Sec. (24.2-36.6) H 01/28/17 05:03 Sodium 135 mmol/L (137-145) L 01/26/17 22:18 Potassium 4.3 mmol/L (3.6-5.0) 01/26/17 22:18 Chloride 94.0 mmol/L (98-107) L 01/26/17 22:18 Carbon Dioxide 30 mmol/L (22-30) 01/26/17 22:18 Anion Gap 15 mmol/L 01/26/17 22:18 BUN 11 mg/dL (7-17) 01/26/17 22:18 Creatinine 0.6 mg/dL (0.7-1.2) L 01/26/17 22:18 Estimated GFR > 60 ml/min 01/26/17 22:18 BUN/Creatinine Ratio 18.33 % 01/26/17 22:18 Glucose 155 mg/dL (65-100) H 01/26/17 22:18 POC Glucose 129 (70-105) H 01/27/17 20:53 Calcium 8.9 mg/dL (8.4-10.2) 01/26/17 22:18 Total Bilirubin 0.40 mg/dL (0.1-1.2) 01/26/17 22:18 AST 15 units/L (5-40) 01/26/17 22:18 ALT 12 units/L (7-56) 01/26/17 22:18 Alkaline Phosphatase 69 units/L (35-129) 01/26/17 22:18 Total Protein 7.5 g/dL (6.3-8.2) 01/26/17 22:18 Albumin 3.7 g/dL (3.9-5) L 01/26/17 22:18 Albumin/Globulin Ratio 1.0 % 01/26/17 22:18 Blood Type B POSITIVE 01/27/17 09:16
[2017-01-28] MEDS ORDERED: VITAMIN K (ADULT ONLY) SUB-Q ONE (09:30)
[2017-01-28] MEDS: DILAUDID IV PRN ×2 (09:40→09:50)
[2017-01-28] MEDS ORDERED: ZOFRAN ONE (09:40)
[2017-01-28] MEDS ORDERED: TORADOL ONE (09:40)
[2017-01-28] MEDS ORDERED: REGLAN ONE (09:40)
[2017-01-28] MEDS ORDERED: DILAUDID IV PRN (09:41)
[2017-01-28] MEDS: FLEXERIL PO SCH (13:24)
[2017-01-28] MEDS: FEOSOL PO SCH (13:24)
[2017-01-28] MEDS: K-DUR PO SCH ×2 (13:24→21:18)
[2017-01-28] MEDS: LASIX PO SCH (13:25)
--- NOTE | 2017-01-28 14:28 | Post Anesthesia Evaluation ---
- Post Anesthesia Evaluation Patient Participated: Yes Airway Patent: Yes Stable Respiratory Function: Yes Nausea/Vomiting: No Temp > 96.8F: Yes Pain Manageable: Yes Adequeate Hydration: Yes Anesthesia Complications: No Block Receding Appropriately: Not Applicable Patient on Ventilator: No
[2017-01-28] MEDS: VITAMIN D3 PO SCH (17:52)
[2017-01-28] MEDS: TYLENOL #3 PO PRN (18:02)
[2017-01-28] MEDS: SINGULAIR PO SCH (21:18)
[2017-01-28] MEDS: ZOCOR PO SCH (21:18)
[2017-01-29] MEDS: TYLENOL #3 PO PRN (05:03)
[2017-01-29 06:40] LABS: Basophils % (Auto) 0.8 % (0.0-1.8); Eosinophils % (Auto) 5.3 % (0.0-4.3); Hematocrit 32.4 % (30.3-42.9); Hemoglobin 10.5 gm/dl (10.1-14.3); Mean Corpuscular HGB Conc 32 % (30-34); Mean Corpuscular Hemoglobin 29 pg (28-32); Mean Corpuscular Volume 91 fl (79-97); Platelet Count 330 K/mm3 (140-440); Red Blood Count 3.55 M/mm3 (3.65-5.03); Red Cell Distribution Width 14.7 % (13.2-15.2); White Blood Count 5.9 K/mm3 (4.5-11.0)
[2017-01-29 06:46] LABS: INR 1.14 (0.87-1.13)
[2017-01-29 06:51] LABS: Anion Gap 15 mmol/L; BUN/Creatinine Ratio 15.71; Blood Urea Nitrogen 11 mg/dL (7-17); Calcium 8.5 mg/dL (8.4-10.2); Carbon Dioxide 29 mmol/L (22-30); Chloride 100.8 mmol/L (98-107); Glucose 139 mg/dL (65-100); Potassium 4.8 mmol/L (3.6-5.0); Sodium 140 mmol/L (137-145)
--- NOTE | 2017-01-29 07:15 | Progress Note ---
Assessment and Plan This is a 56 year old lady with left breast necrotizing fasciitis of the left lower inner quadrant POD#1 debridement. 1. Patient progressing well and no acute events overnight. Pain well controlled. 2. Left breast packing removed today with no further signs of infection. 3. Teach dressing changes and ok to shower and take a bath. 4. Home health for daily dressing changes. 5. D/C planning for today, ok per surgery to go home today and patient will follow-up with me in the office tomorrow morning at 11:30 am. 6. Will continue with Clindamycin and follow-up with cultures from OR, prescription written. Prescription written for [place]. 7. Patient will f/u with Dr. Fontana regarding anticoagulation this coming week. 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 No acute events overnight. Pain well controlled and afebrile Objective - Constitutional Vitals: Vital Signs - 12hr 01/28/17 01/28/17 22:13 23:00 Temperature 97.6 F Pulse Rate [ 73 Left] Respiratory 20 Rate Blood Pressure 99/59 [Left Arm] O2 Sat by Pulse 99 99 Oximetry General appearance: Present: no acute distress - EENT Eyes: PERRL, EOM intact ENT: hearing intact, clear oral mucosa, dentition normal Ears: bilateral: normal - Neck Neck: supple, normal ROM - Respiratory Respiratory effort: normal Respiratory: bilateral: CTA - Breasts Breasts: other (left breast wound of the lower inner quadrant packing removed with no further signs of infection, tissues well perfused) - Cardiovascular Rhythm: regular Heart Sounds: Present: S1 & S2 Extremities: no ischemia, pulses intact, pulses symmetrical, No edema, normal temperature, normal color, Full ROM - Gastrointestinal General gastrointestinal: Present: soft, non-tender, non-distended Rectal Exam: deferred - Genitourinary Female genitourinary: deferred - Integumentary Integumentary: clear, warm, dry - Musculoskeletal Musculoskeletal: strength equal bilaterally - Neurologic Neurologic: CNII-XII intact, moves all extremities, gait normal - Psychiatric Psychiatric: appropriate mood/affect, intact judgment & insight, memory intact, cooperative - Labs CBC & Chem 7: 01/29/17 05:57 01/29/17 05:57 Labs: Abnormal lab results 01/28/17 01/28/17 01/28/17 Range/Units 09:27 12:03 16:34 RBC (3.65-5.03) M/mm3 [place] % (Auto) (0.0-7.3) % Eos % (Auto) (0.0-4.3) % Lymph # (1.2-5.4) K/mm3 PT (12.2-14.9) Sec. INR (0.87-1.13) Glucose (65-100) mg/dL POC Glucose 188 H 158 H 235 H (70-105) 01/29/17 01/29/17 01/29/17 Range/Units 05:57 05:57 05:57 RBC 3.55 L (3.65-5.03) M/mm3 [place] % (Auto) 9.3 H (0.0-7.3) % Eos % (Auto) 5.3 H (0.0-4.3) % Lymph # 1.1 L (1.2-5.4) K/mm3 PT 15.2 H (12.2-14.9) Sec. INR 1.14 H (0.87-1.13) Glucose 139 H (65-100) mg/dL POC Glucose (70-105)
--- NOTE | 2017-01-29 07:26 | Discharge Summary ---
Providers - Providers Date of Admission: 01/26/17 19:35 Date of discharge: 01/29/17 Attending physician: ZULLY HORN 01/26/17 19:54 Consult to Physician [CONS] Routine Consulting Provider: МАРИНА VELASCO Reason For Exam: breast cancer Place consult to:: oncology Notified:: office Phone number called:: Was contact made?: Yes If yes, spoke with:: luis e Time called:: 16:32 01/26/17 19:55 Consult to Physician [CONS] Routine Consulting Provider: BERNARDINO CREWS Reason For Exam: breast cellulitis Place consult to:: surgery Notified:: answering service Phone number called:: [phone] Was contact made?: Yes If yes, spoke with:: dory Time called:: 16:35 01/27/17 11:44 Consult to Wound/ET Nurse [CONS] Routine Reason For Exam: wound eval Primary care physician: BERNARDINO CREWS Hospitalization Reason for admission: necrotizing fasciitis left breast Procedures: Debridement of left breast necrotizing fasciitis Hospital course: Final diagnosis; Left necrotizing fasciitis of the breast status post surgical debridement Supratherapeutic INR and Coumadin toxicity at the time of admission, corrected Type 2 diabetes mellitus Hypertension History of PE on Coumadin[Coumadin held] patient will follow education supervisor upon discharge Morbid obesity Brief history and hospital course; Very pleasant obese female patient with left wrist necrotizing fasciitis was admitted to the hospital, symptomatically managed with empiric antibiotics Evaluated by breast surgeon , subsequently underwent surgical debridement of necrotizing fasciitis of the left breast Patient also had Coumadin toxicity with supratherapeutic INR, reversed with vitamin K and FFP's prior to procedure, patient has history of PE and DVT 2 years ago, consulted hematology oncologist, Coumadin was Held patient advised to follow with education supervisor for further evaluation and recommendations regarding anticoagulation Condition symptoms significantly improved, the pressures that sugars closely monitored, medications were optimized Today patient is comfortable in bed, no new complaints, vital signs stable, face -to-face evaluation physical examination: Many prior to discharge is unremarkable Cleared by surgeon for discharge and follow up with them in the office, patient is hemodynamically and clinically stable at the time of discharge Counseled dietary modification, exercise as tolerated and weight reduction when medically stable Disposition: [id number] HOME UNDER HOME HL[facility] Time spent for discharge: 32 min Core Measure Documentation - Palliative Care Palliative Care/ Comfort Measures: Not Applicable - Core Measures Any of the following diagnoses?: none Exam - Constitutional Vitals: Temp Pulse Resp BP Pulse Ox 97.6 F 73 20 99/59 99 01/28/17 23:00 01/28/17 23:00 01/28/17 23:00 01/28/17 23:00 01/28/17 23:00 General appearance: Present: no acute distress, well-nourished - EENT Eyes: Present: PERRL, EOM intact - Neck Neck: Present: supple, normal ROM - Respiratory Respiratory effort: normal Respiratory: bilateral: diminished, negative: rales, rhonchi, wheezing - Cardiovascular Rhythm: regular Heart Sounds: Present: S1 & S2 - Extremities Extremities: no ischemia, pulses intact - Abdominal General gastrointestinal: Present: soft, non-tender, non-distended, normal bowel sounds - Integumentary Integumentary: Present: clear, warm - Musculoskeletal Musculoskeletal: strength equal bilaterally - Psychiatric Psychiatric: appropriate mood/affect, cooperative - Neurologic Neurologic: CNII-XII intact, moves all extremities Plan Activity: advance as tolerated Diet: low salt, diabetic Wound: per wound nurse instructions Additional Instructions: f/u PMD 1 week Follow up with: BERNARDINO CREWS MD [Primary Care Provider] - 7 Days МАРИНА VELASCO MD [Staff Physician] - 7 Days Prescriptions: Clindamycin [Clindamycin CAP] 300 mg PO Q6H #40 capsule HYDROcodone/APAP 5-325 [[place] 5/325] 1 each PO Q6HR PRN #30 tablet PRN Reason: Pain
[2017-01-29 08:25] VITALS: BP 108/69
[2017-01-29] MEDS: EFFEXOR PO SCH (09:09)
[2017-01-29] MEDS: CLEOCIN PO SCH (09:10)
[2017-01-29] MEDS: FLEXERIL PO SCH (09:10)
[2017-01-29] MEDS: VITAMIN D3 PO SCH (09:10)
[2017-01-29] MEDS: GLUCOPHAGE PO SCH (09:10)
[2017-01-29] MEDS: K-DUR PO SCH (09:10)
[2017-01-29] MEDS: GLUCOTROL PO SCH (09:11)
[2017-01-29] MEDS: LASIX PO SCH (09:11)
[2017-01-29] MEDS: FEOSOL PO SCH (09:11)
[2017-01-29] MEDS ORDERED: LOVENOX SUB-Q SCH ×2 (10:00)
--- NOTE | 2017-01-29 10:47 | Hem/Onc Progress Note ---
Subjective Date of service: 01/29/17 Interval history: Spoke at length with this patient. She was treated at [place] for PE / DVT . She came in with coumadin toxicity that required reversal with FFP. The status of her hypercoag workup is unknown, but she does not report family hx of thrombophilia, and has has only one event We discussed aspirin, but patient reports she is unable to take aspirin because of Gastric bypass. I explained that low dose coumadin, low dose eliquis are also options. Patient wants to come off of anticoagulation completely I told her that this is reasonable but strongly recommend she f/u with [facility] as outpatient for further workup Objective - Constitutional Vitals: Last Vital Signs Temp 98.6 F 01/29/17 07:00 Pulse 72 01/29/17 07:00 Resp 20 01/29/17 07:00 BP 108/69 01/29/17 07:00 Pulse Ox 92 01/29/17 07:00 Pain Intensity (0-10): denies any pain General appearance: no acute distress, mild distress - EENT Eyes: PERRL, EOM intact ENT: hearing intact, clear oral mucosa - Neck Neck: supple, normal ROM - Respiratory Respiratory effort: Positive: normal Respiratory: bilateral: CTA - Cardiovascular Rhythm: regular Extremities: No edema - Labs Lab Results: Laboratory Results - last 24 hr 01/28/17 01/28/17 01/29/17 12:03 16:34 05:57 WBC RBC Hgb Hct MCV MCH MCHC RDW Plt Count Lymph % (Auto) [place] % (Auto) Eos % (Auto) Baso % (Auto) Lymph # [place] # Eos # Baso # Seg Neutrophils % Seg Neutrophils # PT 15.2 H INR 1.14 H Sodium Potassium Chloride Carbon Dioxide Anion Gap BUN Creatinine Estimated GFR BUN/Creatinine Ratio Glucose POC Glucose 158 H 235 H Calcium Vancomycin Trough 01/29/17 01/29/17 01/29/17 05:57 05:57 08:38 WBC 5.9 RBC 3.55 L Hgb 10.5 Hct 32.4 MCV 91 MCH 29 MCHC 32 RDW 14.7 Plt Count 330 Lymph % (Auto) 18.9 [place] % (Auto) 9.3 H Eos % (Auto) 5.3 H Baso % (Auto) 0.8 Lymph # 1.1 L [place] # 0.6 Eos # 0.3 Baso # 0.0 Seg Neutrophils % 65.7 Seg Neutrophils # 3.9 PT INR Sodium 140 Potassium 4.8 Chloride 100.8 Carbon Dioxide 29 Anion Gap 15 BUN 11 Creatinine 0.7 Estimated GFR > 60 BUN/Creatinine Ratio 15.71 Glucose 139 H POC Glucose Calcium 8.5 Vancomycin Trough 11.9
== END 2017-01-29 12:30 | disposition home health service (06) | DRG 584 ==
LOC: 3A 19:35
PROVIDERS: ADMIT Internal Medicine; ATTEND Internal Medicine
PROC: 30233K1 Transfusion of Nonautologous Frozen Plasma into Peripheral Vein, Percutaneous Approach (ICD-10-PCS; 2017-01-26)
PROC: 30233L1 Transfusion of Nonautologous Fresh Plasma into Peripheral Vein, Percutaneous Approach (ICD-10-PCS; 2017-01-26)
PROC: 0HBU0ZZ Excision of Left Breast, Open Approach (ICD-10-PCS; principal; 2017-01-28)
DX: N61.1 Abscess of the breast and nipple (principal); M72.6 Necrotizing fasciitis; D68.9 Coagulation defect, unspecified; E11.9 Type 2 diabetes mellitus without complications; E66.01 Morbid (severe) obesity due to excess calories; T45.515A Adverse effect of anticoagulants, initial encounter; Z86.711 Personal history of pulmonary embolism; Z98.84 Bariatric surgery status; Z68.38 Body mass index [BMI] 38.0-38.9, adult; Z71.3 Dietary counseling and surveillance; Y92.89 Other specified places as the place of occurrence of the external cause
CPT/HCPCS: 36415; 80048; 80053; 80202; 82962; 85025; 85610; 85730; 86900; 86901; 87040; J1650; J1885; J2405; J2704; J2765; J3010; J3370; J3430; J7040; P9017

== ENCOUNTER 2017-02-01 11:00 | Outpatient (CLI) | payer BC ==
--- NOTE | 2017-02-02 16:38 | Vascular Lab Report ---
LOWER EXTREMITY VENOUS DUPLEX: REASON FOR EXAM: Edema of the lower extremities. COMMENTS ON THE RIGHT: All veins visualized are freely compressible without evidence of internal echogenicity. Flow is spontaneous and phasic throughout. COMMENTS ON THE LEFT: Chronic deep venous thrombosis noted in the left popliteal vein. The remaining veins visualized are freely compressible without evidence of internal echogenicity. Spontaneous and phasic flow is present proximally. IMPRESSION: Chronic deep venous thrombosis in the left lower extremity
== END 2017-02-01 11:01 | disposition home or self-care (01) ==
LOC: VAS 11:00
PROVIDERS: ATTEND Internal Medicine Hematology & Oncology
DX: I82.532 Chronic embolism and thrombosis of left popliteal vein (principal); D68.59 Other primary thrombophilia; J45.909 Unspecified asthma, uncomplicated; E11.9 Type 2 diabetes mellitus without complications; D64.9 Anemia, unspecified
CPT/HCPCS: 93970

== ENCOUNTER 2017-02-21 08:07 | Outpatient (CLI) | payer BC ==
[2017-02-21] MEDS ORDERED: XYLOCAINE TOPICAL 4% TP ONE (08:44)
== END 2017-02-21 08:08 | disposition home or self-care (01) ==
LOC: WOUND 08:07
PROVIDERS: ATTEND Surgery
DX: T81.89XD Other complications of procedures, not elsewhere classified, subsequent encounter (principal); E11.9 Type 2 diabetes mellitus without complications; J45.909 Unspecified asthma, uncomplicated; F32.9 Major depressive disorder, single episode, unspecified; Z86.718 Personal history of other venous thrombosis and embolism; Z86.711 Personal history of pulmonary embolism; Z72.89 Other problems related to lifestyle; Y83.8 Other surgical procedures as the cause of abnormal reaction of the patient, or of later complication, without mention of misadventure at the time of the procedure
CPT/HCPCS: 11042; 11045; G0463

== ENCOUNTER 2017-02-24 13:36 | Outpatient (CLI) | payer BC | END 2017-02-24 13:37 | disposition home or self-care (01) | LOC: WOUND 13:36 | PROVIDERS: ATTEND Podiatrist | DX: T81.89XD Other complications of procedures, not elsewhere classified, subsequent encounter (principal); E11.9 Type 2 diabetes mellitus without complications; F32.9 Major depressive disorder, single episode, unspecified; J45.909 Unspecified asthma, uncomplicated; Z72.89 Other problems related to lifestyle; Y83.8 Other surgical procedures as the cause of abnormal reaction of the patient, or of later complication, without mention of misadventure at the time of the procedure | CPT/HCPCS: 97606 ==

== ENCOUNTER 2017-02-28 08:44 | Outpatient (CLI) | payer BC ==
[2017-02-28] MEDS ORDERED: XYLOCAINE TOPICAL 4% TP ONE ×2 (08:57→09:11)
== END 2017-02-28 08:45 | disposition home or self-care (01) ==
LOC: WOUND 08:44
PROVIDERS: ATTEND Surgery
DX: T81.89XD Other complications of procedures, not elsewhere classified, subsequent encounter (principal); E11.9 Type 2 diabetes mellitus without complications; J45.909 Unspecified asthma, uncomplicated; F32.9 Major depressive disorder, single episode, unspecified; Z72.89 Other problems related to lifestyle; Y83.8 Other surgical procedures as the cause of abnormal reaction of the patient, or of later complication, without mention of misadventure at the time of the procedure
CPT/HCPCS: 97605; G0463; 99213

== ENCOUNTER 2017-03-07 08:23 | Outpatient (CLI) | payer BC ==
[2017-03-07] MEDS ORDERED: XYLOCAINE TOPICAL 4% TP ONE (09:02)
== END 2017-03-07 08:24 | disposition home or self-care (01) ==
LOC: WOUND 08:23
PROVIDERS: ATTEND Surgery
DX: T81.89XD Other complications of procedures, not elsewhere classified, subsequent encounter (principal); E11.9 Type 2 diabetes mellitus without complications; J45.909 Unspecified asthma, uncomplicated; F32.9 Major depressive disorder, single episode, unspecified; Z72.89 Other problems related to lifestyle; Y83.8 Other surgical procedures as the cause of abnormal reaction of the patient, or of later complication, without mention of misadventure at the time of the procedure
CPT/HCPCS: 97605

== ENCOUNTER 2017-03-14 08:44 | Outpatient (CLI) | payer BC ==
[2017-03-14] MEDS ORDERED: XYLOCAINE TOPICAL 4% TP ONE ×2 (08:55→09:10)
[2017-03-14] MEDS ORDERED: SILVER NITRATE TP ONE ×2 (09:29→12:43)
== END 2017-03-14 08:45 | disposition home or self-care (01) ==
LOC: WOUND 08:44
PROVIDERS: ATTEND Surgery
DX: T81.89XD Other complications of procedures, not elsewhere classified, subsequent encounter (principal); E11.9 Type 2 diabetes mellitus without complications; J45.909 Unspecified asthma, uncomplicated; F32.9 Major depressive disorder, single episode, unspecified; Z72.89 Other problems related to lifestyle; Y83.8 Other surgical procedures as the cause of abnormal reaction of the patient, or of later complication, without mention of misadventure at the time of the procedure
CPT/HCPCS: 97605

== ENCOUNTER 2017-03-21 08:03 | Outpatient (CLI) | payer BC ==
[2017-03-21] MEDS ORDERED: XYLOCAINE TOPICAL 4% TP ONE ×2 (08:15→08:31)
== END 2017-03-21 08:04 | disposition home or self-care (01) ==
LOC: WOUND 08:03
PROVIDERS: ATTEND Surgery
DX: T81.89XD Other complications of procedures, not elsewhere classified, subsequent encounter (principal); E11.9 Type 2 diabetes mellitus without complications; J45.909 Unspecified asthma, uncomplicated; F32.9 Major depressive disorder, single episode, unspecified; Z72.89 Other problems related to lifestyle; Y83.8 Other surgical procedures as the cause of abnormal reaction of the patient, or of later complication, without mention of misadventure at the time of the procedure
CPT/HCPCS: 99214; G0463

== ENCOUNTER 2017-03-28 08:04 | Outpatient (CLI) | payer BC ==
[2017-03-28] MEDS ORDERED: XYLOCAINE TOPICAL 4% TP ONE (08:20)
== END 2017-03-28 08:05 | disposition home or self-care (01) ==
LOC: WOUND 08:04
PROVIDERS: ATTEND Surgery
DX: T81.89XD Other complications of procedures, not elsewhere classified, subsequent encounter (principal); E11.9 Type 2 diabetes mellitus without complications; J45.909 Unspecified asthma, uncomplicated; F32.9 Major depressive disorder, single episode, unspecified; Z72.89 Other problems related to lifestyle; Y83.8 Other surgical procedures as the cause of abnormal reaction of the patient, or of later complication, without mention of misadventure at the time of the procedure
CPT/HCPCS: 99212; G0463

== ENCOUNTER 2018-08-28 16:12 | Outpatient (CLI) | payer BC ==
--- NOTE | 2018-08-29 14:43 | Mammography Report ---
BILATERAL DIGITAL SCREENING MAMMOGRAM with CAD: 08/28/18 16:12:00 CLINICAL: Routine screening.History of necrotizing infection of the left breast with abscess. COMPARISON:01/25/17 FINDINGS: The breasts are mostly fatty. No mass, architectural distortion or suspicious calcifications. IMPRESSION: No mammographic evidence of malignancy. BI-RADS CATEGORY: 1 - - Negative RECOMMENDATION: Routine mammographic screening in one year. COMMENT: Patient follow-up letters are generated by our [employer] application.
== END 2018-08-28 16:13 | disposition home or self-care (01) ==
LOC: SPVWC 16:12
PROVIDERS: ATTEND Internal Medicine
DX: Z12.31 Encounter for screening mammogram for malignant neoplasm of breast (principal); E11.9 Type 2 diabetes mellitus without complications; J45.909 Unspecified asthma, uncomplicated; Z90.12 Acquired absence of left breast and nipple
CPT/HCPCS: 77067

== ENCOUNTER 2019-04-01 17:16 | Emergency (ER) | payer BC ==
[2019-04-01 18:29] VITALS: BP 144/86
--- NOTE | 2019-04-01 18:29 | Emergency Department Report ---
Blank Doc - Documentation Documentation: 59-year-old female that presents with ground level fall. Was sent by PCP for CT scans. Denies any neck pain. Denies any other complaints or pain. Denies any LOC. This initial assessment/diagnostic orders/clinical plan/treatment(s) is/are subject to change based on patient's health status, clinical progression and re- assessment by fellow clinical providers in the ED. Further treatment and workup at subsequent clinical providers discretion. Patient/guardians urged not to elope from the ED as their condition may be serious if not clinically assessed and managed. Initial orders include: 1- Patient sent to [facility] for further evaluation and treatment 2- CT head and facial bone
--- NOTE | 2019-04-01 19:49 | Cat Scan Report ---
CT head/brain wo con INDICATION: Headaches; status post fall TECHNIQUE: Routine CT head without contrast. Sagittal and coronal reformatted images were obtained. A ll CT scans at this location are performed using CT dose reduction for ALARA by means of automated ex posure control. COMPARISON: CT scan of the brain from 09/17/2012 FINDINGS: BRAIN / INTRACRANIAL CONTENTS: I do not see intracranial sequela from the trauma. I do not see subdur al, epidural or intracerebral hematoma. I do not see subarachnoid hemorrhage in the white matter low density area suggest shear injury. I do not see air-fluid level in the paranasal sinuses. In these im ages, no obvious scalp lesion is seen. No acute hemorrhage, mass effect, midline shift, hydrocephalus, or acute, large territorial infarct. Mild cortical involution is seen. No significant white matter abnormality. CRANIOCERVICAL JUNCTION: No significant abnormality. ORBITS: No significant abnormality of visualized orbits. SINUSES / MASTOIDS: Surgical changes are seen in the nasal cavity bilaterally. ADDITIONAL FINDINGS: Small meningioma measuring 7 mm in height and 4 mm in width is seen arising from the falx cerebri projecting to the left side. IMPRESSION: I do not see intracranial sequela from the trauma. Signer Name: Yvette Bass MD Signed: 04/01/2019 7:44 PM Workstation Name: [id number]
--- NOTE | 2019-04-01 20:07 | Cat Scan Report ---
CT FACE HISTORY: Status post fall; headaches; facial pain COMPARISON: None. TECHNIQUE: Axial images of the face were obtained. Coronal and sagittal reformats generated. All CT scans at this location are performed using CT dose reduction for ALARA by means of automated exposure control. CONTRAST: None. FINDINGS: Facial bones: Midface: Nasal bones perpendicular plate of ethmoid and nasal septum are normal. Nasal cartilages are normal. Medial orbital wall and nasal orbital ethmoid complex are normal. Orbits: No fracture Zygomaticomaxillary complex: No fracture Mandible: No fracture Paranasal sinuses: I do not see air-fluid level in the paranasal sinuses: Nasal cavity: Postsurgical changes are seen bilaterally. Inferior turbinates and middle turbinates baca ve been removed. Free border of the uncinate processes been removed bilaterally. Mucosal thickening i s seen along the roof of the right nasal cavity. Orbits: No significant abnormality. Additional findings: None. IMPRESSION: I do not see fracture in the facial bones. Signer Name: Yvette Bass MD Signed: 04/01/2019 8:02 PM Workstation Name: [id number]
--- NOTE | 2019-04-01 23:26 | Emergency Department Report ---
ED Fall HPI - General Chief Complaint: Head Injury Stated Complaint: REF BY DOCTOR/HEAD INJURY Time Seen by Provider: 04/01/19 18:28 Source: patient Mode of arrival: Ambulatory - History of Present Illness Initial Comments: Patient is a 59-year-old white female who presented to the ED with left facial abrasion after she tripped over her dog 24 hours ago and fell down on the face. Patient states that at the time she had a mild headache which she took Tylenol and resolved. Patient denies any loss of consciousness, nausea, vomiting, neck pain, back pain, chest pain, shortness of breath, dizziness, lightheadedness, syncope, seizures, change in vision or abdominal pain. Patient states that these occurred out of state and when she got home, she followed up with a primary care physician who advised her to come to the ED for head CT scan without contrast to rule out any intracranial hemorrhage or injury. Patient states that she has been applying Neosporin ointment on the facial abrasions. 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 denies: headache, neck pain, numbness, weakness, chest paint, shortness of breath, abdominal pain, hematuria, unable to walk, lightheaded, vertigo, confusion, other - Related Data Home Medications Medication Instructions Recorded Confirmed Last Taken Acetaminophen with Codeine 1 each PO Q6HR PRN 01/27/17 01/27/17 Unknown [Acetaminophen-Codeine #2 TAB] Clindamycin [Clindamycin CAP] 300 mg PO Q8H 01/27/17 01/27/17 Unknown Cyclobenzaprine [Flexeril 10 MG 10 mg PO DAILY 01/27/17 01/27/17 Unknown TAB] Furosemide [Lasix TAB] 40 mg PO QDAY 01/27/17 01/27/17 Unknown Metformin HCl [Glucophage] 1,000 mg PO BID 01/27/17 01/27/17 Unknown Mometasone/Formoterol [Dulera 100 2 puff IH BID 01/27/17 01/27/17 Unknown Mcg/5 Mcg Inhaler] Montelukast [Singulair] 10 mg PO QPM 01/27/17 01/27/17 Unknown Potassium Chloride [K-Dur] 1 tab PO BID 01/27/17 01/27/17 Unknown Pravastatin Sodium [Pravastatin] 10 mg PO QHS 01/27/17 01/27/17 Unknown Venlafaxine [Effexor 37.5mg tab] 112.5 mg PO QDAY 01/27/17 01/27/17 Unknown Zolpidem Tartrate [Edluar SUBL] 10 mg SL QHS PRN 01/27/17 01/27/17 Unknown glipiZIDE [Glucotrol] 5 mg PO BID 01/27/17 01/27/17 Unknown Previous Rx's Medication Instructions Recorded Last Taken Type Clindamycin [Clindamycin CAP] 300 mg PO Q6H #40 capsule 01/29/17 Unknown Rx HYDROcodone/APAP 5-325 [[place] 1 each PO Q6HR PRN #30 tablet 01/29/17 Unknown Rx 5/325] Allergies Allergy/AdvReac Type Severity Reaction Status Date / Time NSAIDS (Non-Steroidal Allergy Bleeding Verified 02/21/17 08:44 Anti-Inflamma ED Review of Systems ROS: Stated complaint: REF BY DOCTOR/HEAD INJURY Other details as noted in HPI Constitutional: denies: chills, fever Eyes: denies: eye pain, eye discharge, vision change ENT: other (left zygomatic abrasions). denies: ear pain, throat pain Respiratory: denies: cough, shortness of breath, wheezing Cardiovascular: denies: chest pain, palpitations Endocrine: no symptoms reported Gastrointestinal: denies: abdominal pain, nausea, diarrhea Genitourinary: denies: urgency, dysuria, discharge Musculoskeletal: denies: back pain, joint swelling, arthralgia Skin: other (facial abrasions). denies: rash, lesions Neurological: headache. denies: weakness, paresthesias Psychiatric: denies: anxiety, depression Hematological/Lymphatic: denies: easy bleeding, easy bruising ED Past Medical Hx - Past Medical History Hx Hypertension: No Hx Congestive Heart Failure: No Hx Diabetes: Yes (type 2, 16yr) Hx Asthma: Yes Hx COPD: No Hx HIV: No - Surgical History Hx Breast Surgery: Yes - Social History Smoking Status: Never Smoker Substance Use Type: None - Medications Home Medications: Home Medications Medication Instructions Recorded Confirmed Last Taken Type Acetaminophen with Codeine 1 each PO Q6HR PRN 01/27/17 01/27/17 Unknown History [Acetaminophen-Codeine #2 TAB] Clindamycin [Clindamycin CAP] 300 mg PO Q8H 01/27/17 01/27/17 Unknown History Cyclobenzaprine [Flexeril 10 MG 10 mg PO DAILY 01/27/17 01/27/17 Unknown History TAB] Furosemide [Lasix TAB] 40 mg PO QDAY 01/27/17 01/27/17 Unknown History Metformin HCl [Glucophage] 1,000 mg PO BID 01/27/17 01/27/17 Unknown History Mometasone/Formoterol [Dulera 100 2 puff IH BID 01/27/17 01/27/17 Unknown History Mcg/5 Mcg Inhaler] Montelukast [Singulair] 10 mg PO QPM 01/27/17 01/27/17 Unknown History Potassium Chloride [K-Dur] 1 tab PO BID 01/27/17 01/27/17 Unknown History Pravastatin Sodium [Pravastatin] 10 mg PO QHS 01/27/17 01/27/17 Unknown History Venlafaxine [Effexor 37.5mg tab] 112.5 mg PO QDAY 01/27/17 01/27/17 Unknown History Zolpidem Tartrate [Edluar SUBL] 10 mg SL QHS PRN 01/27/17 01/27/17 Unknown History glipiZIDE [Glucotrol] 5 mg PO BID 01/27/17 01/27/17 Unknown History Clindamycin [Clindamycin CAP] 300 mg PO Q6H #40 capsule 01/29/17 Unknown Rx HYDROcodone/APAP 5-325 [[place] 1 each PO Q6HR PRN #30 tablet 01/29/17 Unknown Rx 5/325] ED Physical Exam - General Limitations: No Limitations General appearance: alert, in no apparent distress - Head Head exam: Present: other (Left zygomatic abrasions) - Eye Eye exam: Present: normal appearance, PERRL, EOMI - ENT ENT exam: Present: normal exam, normal orophraynx, mucous membranes moist, TM's normal bilaterally, normal external ear exam - Neck Neck exam: Present: normal inspection, full ROM. Absent: tenderness, lymphadenopathy - Respiratory Respiratory exam: Present: normal lung sounds bilaterally. Absent: respiratory distress, wheezes, rales, stridor, chest wall tenderness, accessory muscle use, decreased breath sounds, other - Cardiovascular Cardiovascular Exam: Present: regular rate, normal rhythm, normal heart sounds. Absent: systolic murmur, diastolic murmur, rubs, gallop - GI/Abdominal GI/Abdominal exam: Present: soft, normal bowel sounds. Absent: tenderness, guarding, hyperactive bowel sounds, hypoactive bowel sounds - Extremities Exam Extremities exam: Present: normal inspection, full ROM, normal capillary refill - Back Exam Back exam: Present: normal inspection, full ROM. Absent: tenderness, muscle spasm, paraspinal tenderness, vertebral tenderness - Neurological Exam Neurological exam: Present: alert, oriented X3, CN II-XII intact, normal gait, reflexes normal - Psychiatric Psychiatric exam: Present: normal affect, normal mood - Skin Skin exam: Present: warm, dry, intact, normal color, abrasion (left facial and zygomatic area). Absent: rash ED Course Vital Signs 04/01/19 18:28 Temperature 98.1 F Pulse Rate 86 Respiratory 18 Rate Blood Pressure 144/86 O2 Sat by Pulse 98 Oximetry - Reevaluation(s) Reevaluation #1: 04/01/19 23:47 This is a 59-year-old female who presented to the ED for evaluation after she tripped on her dog and fell down on her face over 24 hours ago. In the ED, patient is alert and oriented 3 and is in distress with normal vital signs. Patient essentially denies any pain or headache. Head CT scan without contrast shows no acute intracranial abnormalities or hemorrhage. Facial bone CT scan without contrast shows no acute facial bone fractures or internal bleeding. Patient was discharged home and advised to take Tylenol as needed for pain and to follow-up with her primary care physician in 3-5 days for reevaluation. Patient was also advised to return to the ED immediately if symptoms get worse. ED Medical Decision Making - Radiology Data Radiology results: report reviewed, image reviewed Findings [address] [address] Cat Scan Report Signed Patient: PAUL SWANN MR#: [id number] : 1960 Acct:[id number] Age/Sex: 59 / F ADM Date: 04/01/19 Loc: ED Attending Dr: Ordering Physician: SOLEDAD SCHAFER NP Date of Service: 04/01/19 Procedure(s): CT head/brain wo con Accession Number(s): [id number] cc: SOLEDAD SCHAFER NP CT head/brain wo con INDICATION: Headaches; status post fall TECHNIQUE: Routine CT head without contrast. Sagittal and coronal reformatted images were obtained. All CT scans at this location are performed using CT dose reduction for ALARA by means of automated exposure control. COMPARISON: CT scan of the brain from 09/17/2012 FINDINGS: BRAIN / INTRACRANIAL CONTENTS: I do not see intracranial sequela from the trauma. I do not see subdural, epidural or intracerebral hematoma. I do not see subarachnoid hemorrh age in the white matter low density area suggest shear injury. I do not see air-fluid level in the paranasal sinuses. In these images, no obvious scalp lesion is seen. No acute hemorrhage, mass effect, midline shift, hydrocephalus, or acute, large territorial infarct. Mild cortical involution is seen. No significant white matter abnormality. CRANIOCERVICAL JUNCTION: No significant abnormality. ORBITS: No significant abnormality of visualized orbits. SINUSES / MASTOIDS: Surgical changes are seen in the nasal cavity bilaterally. ADDITIONAL FINDINGS: Small meningioma measuring 7 mm in height and 4 mm in width is seen arising from the falx cerebri projecting to the left side. IMPRESSION: I do not see intracranial sequela from the trauma. Signer Name: Yvette Bass MD Signed: 04/01/2019 7:44 PM Workstation Name: [id number] Transcribed By: BS Dictated By: Yvette Dumas MD Electronically Authenticated By: Yvette Dumas MD Signed Date/Time: 04/01/191943 DD/ 33 Findings [facility] [address] [place] [address] Cat Scan Report Signed Patient: PAUL SWANN MR#: [id number] : 1960 Acct:[id number] Age/Sex: 59 / F ADM Date: 04/01/19 Loc: ED Attending Dr: Ordering Physician: SOLEDAD SCHAFER NP Date of Service: 04/01/19 Procedure(s): CT facial bones wo con Accession Number(s): [id number] cc: SOLEDAD SCHAFER NP CT FACE HISTORY: Status post fall; headaches; facial pain COMPARISON: None. TECHNIQUE: Axial images of the face were obtained. Coronal and sagittal reformats generated. All CT scans at this location are performed using CT dose reduction for ALARA by means of automated exposure control. CONTRAST: None. FINDINGS: Facial bones: Midface: Nasal bones perpendicular plate of ethmoid and nasal septum are normal. Nasal cartilages are normal. Medial orbital wall and nasal orbital ethmoid complex are normal. Orbits: No fracture Zygomaticomaxillary complex: No fracture Mandible: No fracture Paranasal sinuses: I do not see air-fluid level in the paranasal sinuses: Nasal cavity: Postsurgical changes are seen bilaterally. Inferior turbinates and middle turbinates have been removed. Free border of the uncinate processes been removed bilaterally. Mucosal thi ckening is seen along the roof of the right nasal cavity. Orbits: No significant abnormality. Additional findings: None. IMPRESSION: I do not see fracture in the facial bones. Signer Name: Yvette Bass MD Signed: 04/01/2019 8:02 PM Workstation Name: [id number] Transcribed By: BS Dictated By: Yvette Dumas MD Electronically Authenticated By: Yvette Dumas MD Signed Date/Time: 04/01/192001 - Medical Decision Making This is a 59-year-old female who presented to the ED for evaluation after she tripped on her dog and fell down on her face over 24 hours ago. In the ED, patient is alert and oriented 3 and is in distress with normal vital signs. Patient essentially denies any pain or headache. Head CT scan without contrast shows no acute intracranial abnormalities or hemorrhage. Facial bone CT scan without contrast shows no acute facial bone fractures or internal bleeding. Patient was discharged home and advised to take Tylenol as needed for pain and to follow-up with her primary care physician in 3-5 days for reevaluation. Patient was also advised to return to the ED immediately if symptoms get worse. - Differential Diagnosis facial contusion; facial abrasions; scalp contusion; Critical care attestation.: If time is entered above; I have spent that time in minutes in the direct care of this critically ill patient, excluding procedure time. ED Disposition Clinical Impression: Contusion of face Qualifiers: Encounter type: initial encounter Qualified Code(s): S00.83XA - Contusion of other part of head, initial encounter Contusion of scalp Qualifiers: Encounter type: initial encounter Qualified Code(s): S00.03XA - Contusion of scalp, initial encounter Abrasion of face Qualifiers: Encounter type: initial encounter Qualified Code(s): S00.81XA - Abrasion of other part of head, initial encounter Disposition: DC-01 TO HOME OR SELFCARE Is pt being admited?: No Does the pt Need Aspirin: No Condition: Stable Instructions: Scalp Contusion in Adults (ED), Abrasion (ED) Additional Instructions: Take regular Tylenol as needed for pain. Follow up with your Primary Care Physician in 3-5 days for reevaluation. Return to the ED immediately if symptoms get worse. Referrals: PATTIE CERNA MD [Primary Care Provider] - 3-5 Days Time of Disposition: 23:32 Print Language: NORWEGIAN
== END 2019-04-01 23:51 | disposition home or self-care (01) ==
LOC: ED 17:16
DX: S00.83XA Contusion of other part of head, initial encounter (principal); S00.03XA Contusion of scalp, initial encounter; E11.9 Type 2 diabetes mellitus without complications; J45.909 Unspecified asthma, uncomplicated; Z98.890 Other specified postprocedural states; Z79.899 Other long term (current) drug therapy; Z79.84 Long term (current) use of oral hypoglycemic drugs; Z88.6 Allergy status to analgesic agent; W01.0XXA Fall on same level from slipping, tripping and stumbling without subsequent striking against object, initial encounter; Y93.89 Activity, other specified; Y92.89 Other specified places as the place of occurrence of the external cause; Y99.8 Other external cause status
CPT/HCPCS: 70450; 70486

== ENCOUNTER 2019-05-02 11:12 | Inpatient (IN) | payer BC ==
--- NOTE | 2019-05-02 11:27 | Event Note ---
ED Screening Note Date of service: 05/02/19 Time: 11:20 ED Screening Note: 59 y/o female comes in respiratory issues times 1 week. This initial assessment/diagnostic orders/clinical plan/treatment(s) is/are subject to change based on patients health status, clinical progression and re-assessment by fellow clinical providers in the ED. Further treatment and workup at subsequent clinical providers discretion. Patient/guardian urged not to elope from the ED as their condition may be serious if not clinically assessed and managed. Initial orders include:
[2019-05-02 11:56] LABS: Basophils % (Auto) 0.1 % (0.0-1.8); Hematocrit 40.6 % (30.3-42.9); Hemoglobin 13.5 gm/dl (10.1-14.3); Lymphocytes # (Auto) 0.8 K/mm3 (1.2-5.4); Lymphocytes % (Auto) 4.9 % (13.4-35.0); Mean Corpuscular HGB Conc 33 % (30-34); Mean Corpuscular Volume 88 fl (79-97); Monocytes # (Auto) 0.9 K/mm3 (0.0-0.8); Monocytes % (Auto) 5.5 % (0.0-7.3); Platelet Count 277 K/mm3 (140-440); Red Blood Count 4.62 M/mm3 (3.65-5.03); Red Cell Distribution Width 15.4 % (13.2-15.2)
[2019-05-02] MEDS ORDERED: MERREM/NS 1 GRAM/100 ML 1 GRAM/100 ML BAG IV ONE (12:07)
--- NOTE | 2019-05-02 12:09 | XRay Report ---
CHEST 1 VIEW 05/02/2019 11:40 AM INDICATION / CLINICAL INFORMATION: sob. COMPARISON: Chest x-ray on 02/06/2014. FINDINGS: SUPPORT DEVICES: None. HEART / MEDIASTINUM: No significant abnormality. LUNGS / PLEURA: There is stable elevation of the right hemidiaphragm. However, there has been develop ment of left lower lobe airspace disease concerning for pneumonia. ADDITIONAL FINDINGS: No significant additional findings. IMPRESSION: 1. Left lower lobe airspace disease concerning for developing pneumonia. 2. Stable elevation of the right hemidiaphragm. Signer Name: Endy Altman MD Signed: 05/02/2019 12:04 PM Workstation Name: [id number]
--- NOTE | 2019-05-02 12:11 | Emergency Department Report ---
ED General Adult HPI - General Chief complaint: Upper Respiratory Infection Stated complaint: ACUTE BRONCHITIS Time Seen by Provider: 05/02/19 11:18 Source: patient Mode of arrival: Ambulatory Limitations: No Limitations - History of Present Illness Initial comments: 59-year-old female with a history of pulmonary embolism off anticoagulants for at least 2 years. He has been going to the [facility] for treatment of a respiratory illness for the past week. She was placed on clarithromycin and prednisone. She was given home nebs. She states that she did not notice that she had a fever until today. She has had pleuritic pain located in the left costal area in the substernal area and right "diaphragm". She complains of cough which was initially was clear then turned green after the prednisone. Had no freedom chills. She denied hemoptysis. She denies leg pain or swelling. This morning she was more short of breath. She presented to triage with a pulse oximetry of 85% on room air. -: days(s), week(s) Location: chest Radiation: non-radiation Quality: aching Consistency: intermittent Improves with: none Worsens with: other (pleuritic) Associated Symptoms: denies other symptoms, chest pain, cough, shortness of breath - Related Data Home Medications Medication Instructions Recorded Confirmed Last Taken Cyclobenzaprine [Flexeril 10 MG 10 mg PO DAILY 01/27/17 05/02/19 05/02/19 TAB] Furosemide [Lasix TAB] 40 mg PO QDAY 01/27/17 05/02/19 05/02/19 Metformin HCl [Glucophage] 1,000 mg PO BID 01/27/17 05/02/19 05/02/19 Mometasone/Formoterol [Dulera 100 2 puff IH BID 01/27/17 05/02/19 05/02/19 Mcg/5 Mcg Inhaler] Montelukast [Singulair] 10 mg PO QPM 01/27/17 05/02/19 05/02/19 Potassium Chloride [K-Dur] 1 tab PO BID 01/27/17 05/02/19 05/02/19 Pravastatin Sodium [Pravastatin] 10 mg PO QHS 01/27/17 05/02/19 05/02/19 Venlafaxine [Effexor 37.5mg tab] 112.5 mg PO QDAY 01/27/17 05/02/19 05/02/19 Zolpidem Tartrate [Edluar SUBL] 10 mg SL QHS PRN 01/27/17 05/02/19 05/02/19 glipiZIDE [Glucotrol] 5 mg PO BID 01/27/17 05/02/19 05/02/19 Clarithromycin [Biaxin] 500 mg PO BID 05/02/19 05/02/19 05/02/19 Allergies Allergy/AdvReac Type Severity Reaction Status Date / Time NSAIDS (Non-Steroidal Allergy Bleeding Verified 02/21/17 08:44 Anti-Inflamma ED Review of Systems ROS: Stated complaint: ACUTE BRONCHITIS Other details as noted in HPI Constitutional: denies: chills, fever Eyes: denies: eye pain, eye discharge, vision change ENT: denies: ear pain, throat pain Respiratory: cough, shortness of breath, wheezing Cardiovascular: chest pain. denies: palpitations Endocrine: no symptoms reported Gastrointestinal: denies: abdominal pain, nausea, diarrhea Genitourinary: denies: urgency, dysuria, discharge Musculoskeletal: denies: back pain, joint swelling, arthralgia Skin: denies: rash, lesions Neurological: denies: headache, weakness, paresthesias Psychiatric: denies: anxiety, depression Hematological/Lymphatic: denies: easy bleeding, easy bruising ED Past Medical Hx - Past Medical History Previous Medical History?: Yes Hx Hypertension: No Hx Congestive Heart Failure: No Hx Diabetes: Yes (type 2, 16yr) Hx Asthma: Yes Hx COPD: No Hx HIV: No Additional medical history: States that she was taken off Coumadin due to a "gangrenous" lesion on her chest wall. - Surgical History Hx Breast Surgery: Yes - Social History Smoking Status: Never Smoker Substance Use Type: None - Medications Home Medications: Home Medications Medication Instructions Recorded Confirmed Last Taken Type Cyclobenzaprine [Flexeril 10 MG 10 mg PO DAILY 01/27/17 05/02/19 05/02/19 H istory TAB] Furosemide [Lasix TAB] 40 mg PO QDAY 01/27/17 05/02/19 05/02/19 History Metformin HCl [Glucophage] 1,000 mg PO BID 01/27/17 05/02/19 05/02/19 History Mometasone/Formoterol [Dulera 100 2 puff IH BID 01/27/17 05/02/19 05/02/19 History Mcg/5 Mcg Inhaler] Montelukast [Singulair] 10 mg PO QPM 01/27/17 05/02/19 05/02/19 History Potassium Chloride [K-Dur] 1 tab PO BID 01/27/17 05/02/19 05/02/19 History Pravastatin Sodium [Pravastatin] 10 mg PO QHS 01/27/17 05/02/19 05/02/19 History Venlafaxine [Effexor 37.5mg tab] 112.5 mg PO QDAY 01/27/17 05/02/19 05/02/19 History Zolpidem Tartrate [Edluar SUBL] 10 mg SL QHS PRN 01/27/17 05/02/19 05/02/19 History glipiZIDE [Glucotrol] 5 mg PO BID 01/27/17 05/02/19 05/02/19 History Clarithromycin [Biaxin] 500 mg PO BID 05/02/19 05/02/19 05/02/19 History ED Physical Exam - General Limitations: No Limitations General appearance: alert, in no apparent distress - Head Head exam: Present: atraumatic, normocephalic - Eye Eye exam: Present: normal appearance. Absent: scleral icterus - ENT ENT exam: Present: mucous membranes moist - Neck Neck exam: Present: normal inspection - Respiratory Respiratory exam: Present: normal lung sounds bilaterally, decreased breath sounds (perhaps slightly). Absent: respiratory distress, accessory muscle use - Cardiovascular Cardiovascular Exam: Present: regular rate, normal rhythm. Absent: systolic murmur, diastolic murmur, rubs, gallop - GI/Abdominal GI/Abdominal exam: Present: soft, normal bowel sounds. Absent: distended, tenderness, guarding, rebound, rigid - Extremities Exam Extremities exam: Present: normal inspection - Back Exam Back exam: Present: normal inspection - Neurological Exam Neurological exam: Present: alert, oriented X3, CN II-XII intact. Absent: motor sensory deficit - Psychiatric Psychiatric exam: Present: normal affect, normal mood - Skin Skin exam: Present: warm, dry, intact, normal color. Absent: rash ED Course Vital Signs 05/02/19 05/02/19 05/02/19 11:19 11:29 11:30 Temperature 97.9 F Pulse Rate 118 H 109 H Respiratory 20 27 H Rate Blood Pressure 116/77 Blood Pressure 123/77 [Right] O2 Sat by Pulse 86 87 92 Oximetry 05/02/19 14:50 Temperature 98.2 F Pulse Rate 110 H Respiratory 22 Rate Blood Pressure Blood Pressure 122/72 [Right] O2 Sat by Pulse 92 Oximetry - Reevaluation(s) Reevaluation #1: His pulse oximetry was 92% on 2 L. ABG is pending. CTA of her chest is pending. She does have a substantial left lingular infiltrate. 05/02/19 13:43 Reevaluation #2: CTA of the chest is pending. Hospitalist was made aware. The patient was covered with intravenous antibiotics presumptive diagnosis of pneumonia. However pulmonary embolism cannot be adequately excluded and CTA is pending. 05/02/19 13:47 05/02/19 15:02 ED Medical Decision Making - Lab Data Result diagrams: 05/02/19 11:39 05/02/19 11:39 Laboratory Results - last 24 hr 05/02/19 05/02/19 05/02/19 11:39 11:39 11:39 WBC 15.7 H RBC 4.62 Hgb 13.5 Hct 40.6 MCV 88 MCH 29 MCHC 33 RDW 15.4 H Plt Count 277 Lymph % (Auto) 4.9 L [place] % (Auto) 5.5 Eos % (Auto) 0.0 Baso % (Auto) 0.1 Lymph # 0.8 L [place] # 0.9 H Eos # 0.0 Baso # 0.0 Seg Neutrophils % 89.5 H Seg Neutrophils # 14.1 H PT 13.1 INR 1.02 APTT 26.9 D-Dimer 656.64 H Sodium 133 L Potassium 4.2 Chloride 88.2 L Carbon Dioxide 26 Anion Gap 23 BUN 23 H Creatinine 1.0 Estimated GFR 57 BUN/Creatinine Ratio 23 Glucose 309 H Calcium 8.8 Magnesium 1.50 L Total Bilirubin 1.30 H AST 14 ALT 21 Alkaline Phosphatase 83 Total Creatine Kinase CK-MB (CK-2) CK-MB (CK-2) Rel Index Troponin T NT-Pro-B Natriuret Pep Total Protein 7.3 Albumin 3.7 L Albumin/Globulin Ratio 1.0 05/02/19 11:39 WBC RBC Hgb Hct MCV MCH MCHC RDW Plt Count Lymph % (Auto) [place] % (Auto) Eos % (Auto) Baso % (Auto) Lymph # [place] # Eos # Baso # Seg Neutrophils % Seg Neutrophils # PT INR APTT D-Dimer Sodium Potassium Chloride Carbon Dioxide Anion Gap BUN Creatinine Estimated GFR BUN/Creatinine Ratio Glucose Calcium Magnesium Total Bilirubin AST ALT Alkaline Phosphatase Total Creatine Kinase 333 H CK-MB (CK-2) 1.6 CK-MB (CK-2) Rel Index 0.4 Troponin T < 0.010 NT-Pro-B Natriuret Pep 313.7 Total Protein Albumin Albumin/Globulin Ratio Laboratory Results - last 24 hr 05/02/19 05/02/19 05/02/19 11:39 11:39 11:39 WBC 15.7 H RBC 4.62 Hgb 13.5 Hct 40.6 MCV 88 MCH 29 MCHC 33 RDW 15.4 H Plt Count 277 Lymph % (Auto) 4.9 L [place] % (Auto) 5.5 Eos % (Auto) 0.0 Baso % (Auto) 0.1 Lymph # 0.8 L [place] # 0.9 H Eos # 0.0 Baso # 0.0 Seg Neutrophils % 89.5 H Seg Neutrophils # 14.1 H PT 13.1 INR 1.02 APTT 26.9 D-Dimer 656.64 H Sodium 133 L Potassium 4.2 Chloride 88.2 L Carbon Dioxide 26 Anion Gap 23 BUN 23 H Creatinine 1.0 Estimated GFR 57 BUN/Creatinine Ratio 23 Glucose 309 H Lactic Acid Calcium 8.8 Magnesium 1.50 L Total Bilirubin 1.30 H AST 14 ALT 21 Alkaline Phosphatase 83 Total Creatine Kinase CK-MB (CK-2) CK-MB (CK-2) Rel Index Troponin T NT-Pro-B Natriuret Pep Total Protein 7.3 Albumin 3.7 L Albumin/Globulin Ratio 1.0 05/02/19 05/02/19 11:39 12:40 WBC RBC Hgb Hct MCV MCH MCHC RDW Plt Count Lymph % (Auto) [place] % (Auto) Eos % (Auto) Baso % (Auto) Lymph # [place] # Eos # Baso # Seg Neutrophils % Seg Neutrophils # PT INR APTT D-Dimer Sodium Potassium Chloride Carbon Dioxide Anion Gap BUN Creatinine Estimated GFR BUN/Creatinine Ratio Glucose Lactic Acid 2.20 H* Calcium Magnesium Total Bilirubin AST ALT Alkaline Phosphatase Total Creatine Kinase 333 H CK-MB (CK-2) 1.6 CK-MB (CK-2) Rel Index 0.4 Troponin T < 0.010 NT-Pro-B Natriuret Pep 313.7 Total Protein Albumin Albumin/Globulin Ratio - EKG Data -: EKG Interpreted by Me EKG shows normal: sinus rhythm Rate: normal - EKG Data Interpretation: nonspecific ST-T wave jt, other (one PVC) - Radiology Data Radiology results: report reviewed, image reviewed IMPRESSION: 1. Left lower lobe airspace disease concerning for developing pneumonia. 2. Stable elevation of the right hemidiaphragm. Per radiologist Critical Care Time: Yes Critical care time in (mins) excluding proc time.: 45 Critical care attestation.: If time is entered above; I have spent that time in minutes in the direct care of this critically ill patient, excluding procedure time. ED Disposition Clinical Impression: Hypoxia, Elevated d-dimer, Hypoglycemia associated with type 2 diabetes mellitus Pneumonia Qualifiers: Pneumonia type: due to unspecified organism Laterality: left Lung location: lower lobe of lung Qualified Code(s): J18.1 - Lobar pneumonia, unspecified organism Chest pain Qualifiers: Chest pain type: unspecified Qualified Code(s): R07.9 - Chest pain, unspecified Disposition: DC-09 OP ADMIT IP TO THIS HOSP Is pt being admited?: Yes Does the pt Need Aspirin: Yes Condition: Stable Time of Disposition: 13:49
[2019-05-02 12:12] LABS: Creatine Kinase MB 1.6 ng/mL (0.0-4.0)
[2019-05-02 12:13] LABS: Albumin 3.7 g/dL (3.9-5); Calcium 8.8 mg/dL (8.4-10.2)
[2019-05-02 12:16] LABS: INR 1.02 (0.87-1.13); Partial Thromboplastin Time 26.9 Sec. (24.2-36.6)
[2019-05-02] MEDS ORDERED: HumuLIN R IV ONE (12:27)
[2019-05-02] MEDS ORDERED: NACL 0.9% 1000 ML 1,000 ML IV ONE ×2 (12:27→14:51)
[2019-05-02] MEDS ORDERED: VANCOMYCIN 2,000 MG in NACL 0.9% 500 ML 500 ML IV ONE (13:00)
[2019-05-02] MEDS ORDERED: VANCOMYCIN PHARMACY TO DOSE IV SCH (13:00)
--- NOTE | 2019-05-02 13:25 | Cat Scan Report ---
CTA CHEST WITH CONTRAST INDICATION : infiltrate h/o pe, CP. TECHNIQUE: Axial imaging performed through the chest, with contrast bolus timing set to maximize opa cification of the pulmonary arteries. 3-plane MIP reformatted images were obtained. All CT scans at this location are performed using CT dose reduction for ALARA by means of automated exposure control. 100 mL of intravenous contrast administered. Consent was obtained prior to the administration of cont rast. COMPARISON: None. FINDINGS: Bolus: Contrast bolus timing is adequate. PTE: No filling defect is present to suggest PTE. Mediastinum: Heart and great vessels appear normal. No pathologic mediastinal adenopathy. Lungs: Lower lobe airspace disease with partial consolidation. Left upper lobe is clear. The right l durga is clear except for mild subsegmental atelectasis. Elevation of the right hemidiaphragm. No pleur al effusion. Upper abdomen: Limited imaging of the upper abdomen shows nothing acute. Bones: Degenerative changes in the spine with nothing acute. IMPRESSION: 1. Negative for pulmonary embolus. 2. Left lower lobe pneumonia. Signer Name: Juan Sherman MD Signed: 05/02/2019 1:21 PM Workstation Name: [id number]
[2019-05-02] MEDS ORDERED: BABY ASPIRIN PO ONE (13:50)
[2019-05-02] MEDS ORDERED: DUONEB *Not for PRN Use IH ONE ×2 (14:32→15:06)
[2019-05-02] MEDS ORDERED: NON-FORMULARY (Zolpidem Tartrate [Edluar Subl] 10 MG) SL PRN (21:29)
[2019-05-02] MEDS ORDERED: NON-FORMULARY (Mometasone/Formoterol [Dulera 100 Mcg/5 Mcg Inhaler] 2 PUFF) IH SCH (22:00)
[2019-05-02] MEDS ORDERED: NON-FORMULARY (Pravastatin Sodium [Pravastatin] 10 MG) PO SCH (22:00)
[2019-05-02] MEDS: EFFEXOR PO SCH (23:16)
[2019-05-02] MEDS: LASIX PO SCH (23:17)
[2019-05-02] MEDS: MAXIPIME/NS 2 GM/100 ML 2 GM/100 ML BAG IV SCH (23:17)
[2019-05-02] MEDS: K-DUR PO SCH (23:17)
[2019-05-02] MEDS: PRAVACHOL PO SCH (23:18)
[2019-05-03] MEDS: HumaLOG SUB-Q SCH ×5 (00:20→21:51)
[2019-05-03 01:37] LABS: Bilirubin,Urine NEG (Negative); Blood,Urine SM (Negative); Color,Urine Straw (Yellow); Protein,Urine <15 mg/dL mg/dL (Negative); Urobilinogen,Urine < 2.0 mg/dL (<2.0)
[2019-05-03] MEDS: VANCOMYCIN 1,500 MG in NACL 0.9% 500 ML 500 ML IV SCH ×2 (02:27→13:29)
--- NOTE | 2019-05-03 06:02 | History and Physical Report ---
History of Present Illness Date of examination: 05/02/19 Date of admission: 05/02/19 13:51 Chief complaint: Cough and SOB for one week. History of present illness: 59-year-old female with a history of pulmonary embolism off anticoagulants for at least 2 years has been going to the [facility] for treatment of a respiratory illness for the past week. She was placed on clarithromycin and prednisone. She was given home nebs. She states that she did not notice that she had a fever until today. She has had pleuritic pain located in the left costal area in the substernal area and right "diaphragm". She complains of cough which was initially was clear then turned green after the prednisone. Had no freedom chills. She denied hemoptysis. She denies leg pain or swelling. This morning she was more short of breath. She presented to triage with a pulse oximetry of 85% on room air.And Fever. Past Medical History Previous Medical History?: Yes Hypertension: No Congestive Heart Failure: No Diabetes: Yes-type 2 Asthma: Yes Surgical History Breast Surgery Social History Smoking Status: Never Smoker Substance Use Type: None Family Hx Htn Medications Home Medications: Home Medications Medication Instructions Recorded Confirmed Last Taken Type Cyclobenzaprine [Flexeril 10 MG 10 mg PO DAILY 01/27/17 05/02/19 05/02/19 History TAB] Furosemide [Lasix TAB] 40 mg PO QDAY 01/27/17 05/02/19 05/02/19 History Metformin HCl [Glucophage] 1,000 mg PO BID 01/27/17 05/02/19 05/02/19 History Mometasone/Formoterol [Dulera 100 2 puff IH BID 01/27/17 05/02/19 05/02/19 History Mcg/5 Mcg Inhaler] Montelukast [Singulair] 10 mg PO QPM 01/27/17 05/02/19 05/02/19 History Potassium Chloride [K-Dur] 1 tab PO BID 01/27/17 05/02/19 05/02/19 History Pravastatin Sodium [Pravastatin] 10 mg PO QHS 01/27/17 05/02/19 05/02/19 History Venlafaxine [Effexor 37.5mg tab] 112.5 mg PO QDAY 01/27/17 05/02/19 05/02/19 History Zolpidem Tartrate [Edluar SUBL] 10 mg SL QHS PRN 01/27/17 05/02/19 05/02/19 History glipiZIDE [Glucotrol] 5 mg PO BID 01/27/17 05/02/19 05/02/19 History Clarithromycin [Biaxin] 500 mg PO BID 05/02/19 05/02/19 05/02/19 History Review of Systems ROS: Stated complaint: ACUTE BRONCHITIS Other details as noted in HPI Constitutional: denies: chills, fever Eyes: denies: eye pain, eye discharge, vision change ENT: denies: ear pain, throat pain Respiratory: cough, shortness of breath, wheezing Cardiovascular: chest pain. denies: palpitations Endocrine: no symptoms reported Gastrointestinal: denies: abdominal pain, nausea, diarrhea Genitourinary: denies: urgency, dysuria, discharge Musculoskeletal: denies: back pain, joint swelling, arthralgia Skin: denies: rash, lesions Neurological: denies: headache, weakness, paresthesias Psychiatric: denies: anxiety, depression Hematological/Lymphatic: denies: easy bleeding, easy bruising Medications and Allergies Allergies Allergy/AdvReac Type Severity Reaction Status Date / Time NSAIDS (Non-Steroidal Allergy Bleeding Verified 02/21/17 08:44 Anti-Inflamma Home Medications Medication Instructions Recorded Confirmed Last Taken Type Cyclobenzaprine [Flexeril 10 MG 10 mg PO DAILY 01/27/17 05/02/19 05/02/19 History TAB] Furosemide [Lasix TAB] 40 mg PO QDAY 01/27/17 05/02/19 05/02/19 History Metformin HCl [Glucophage] 1,000 mg PO BID 01/27/17 05/02/19 05/02/19 History Mometasone/Formoterol [Dulera 100 2 puff IH BID 01/27/17 05/02/19 05/02/19 Hi story Mcg/5 Mcg Inhaler] Montelukast [Singulair] 10 mg PO QPM 01/27/17 05/02/19 05/02/19 History Potassium Chloride [K-Dur] 1 tab PO BID 01/27/17 05/02/19 05/02/19 History Pravastatin Sodium [Pravastatin] 10 mg PO QHS 01/27/17 05/02/1919 History Venlafaxine [Effexor 37.5mg tab] 112.5 mg PO QDAY 01/27/17 05/02/19 05/02/19 History Zolpidem Tartrate [Edluar SUBL] 10 mg SL QHS PRN 01/27/17 05/02/19 05/02/19 History glipiZIDE [Glucotrol] 5 mg PO BID 01/27/17 05/02/19 05/02/19 History Clarithromycin [Biaxin] 500 mg PO BID 05/02/19 05/02/19 05/02/19 History Active Meds: Active Medications Arformoterol Tartrate (Brovana Nebu) 15 mcg IH Q12HRT [facility] Budesonide (Pulmicort) 0.5 mg IH Q12HRT [facility] Cyclobenzaprine HCl (Flexeril) 10 mg PO DAILY [facility] Furosemide (Lasix) 40 mg PO QDAY [facility] Last Admin: 05/02/19 23:17 Dose: 40 mg Documented by: Vancomycin HCl 1,500 mg/ (Sodium Chloride) 530 mls @ 333.333 mls/hr IV Q12H [facility] Last Admin: 05/03/19 02:27 Dose: 333.333 mls/hr Documented by: Cefepime HCl (Maxipime/Ns 2 Gm/100 Ml) 2 gm in 100 mls @ 200 mls/hr IV Q8HR [facility]; Protocol Last Admin: 05/02/19 23:17 Dose: 200 mls/hr Documented by: Insulin Human Lispro (Humalog) 0 unit SUB-Q ACHS [facility]; Protocol Last Admin: 05/03/19 00:20 Dose: 8 unit Documented by: Montelukast Sodium (Singulair) 10 mg PO QPM [facility] Potassium Chloride (K-Dur) 10 meq PO BID [facility] Last Admin: 05/02/19 23:17 Dose: 10 meq Documented by: Pravastatin Sodium (Pravachol) 10 mg PO QHS [facility] Last Admin: 05/02/19 23:18 Dose: 10 mg Documented by: Venlafaxine HCl (Effexor) 112.5 mg PO QDAY [facility] Last Admin: 05/02/19 23:16 Dose: 112.5 mg Documented by: Zolpidem Tartrate (Ambien) 10 mg PO QHS PRN PRN Reason: Sleep Exam - Constitutional Vitals: Temp Pulse Resp BP Pulse Ox 98.6 F 62 22 137/80 89 05/03/19 03:57 05/03/19 05:00 05/03/19 05:00 05/03/19 05:00 05/03/19 05:00 General appearance: Present: no acute distress, well-nourished - EENT Eyes: Present: PERRL ENT: hearing intact, clear oral mucosa - Neck Neck: Present: supple, normal ROM - Respiratory Respiratory effort: normal Respiratory: left: rales, bilateral: CTA, rhonchi, wheezing - Cardiovascular Heart rate: 78 Rhythm: regular Heart Sounds: Present: S1 & S2. Absent: rub, click - Extremities Extremities: no ischemia, pulses intact, pulses symmetrical, No edema Peripheral Pulses: within normal limits - Abdominal General gastrointestinal: Present: soft, non-tender, non-distended, normal bowel sounds Female genitourinary: Present: normal - Rectal Rectal Exam: deferred - Integumentary Integumentary: Present: clear, warm, dry - Musculoskeletal Musculoskeletal: gait normal, strength equal bilaterally - Psychiatric Psychiatric: appropriate mood/affect, intact judgment & insight - Neurologic Neurologic: CNII-XII intact, moves all extremities - Allied Health Allied health notes reviewed: nursing, case management Results - Labs CBC & Chem 7: 05/02/19 11:39 05/03/19 00:18 Labs: Laboratory Last Values WBC 15.7 K/mm3 (4.5-11.0) H 05/02/19 11:39 RBC 4.62 M/mm3 (3.65-5.03) 05/02/19 11:39 Hgb 13.5 gm/dl (10.1-14.3) 05/02/19 11:39 Hct 40.6 % (30.3-42.9) 05/02/19 11:39 MCV 88 fl (79-97) 05/02/19 11:39 MCH 29 pg (28-32) 05/02/19 11:39 MCHC 33 % (30-34) 05/02/19 11:39 RDW 15.4 % (13.2-15.2) H 05/02/19 11:39 Plt Count 277 K/mm3 (140-440) 05/02/19 11:39 Lymph % (Auto) 4.9 % (13.4-35.0) L 05/02/19 11:39 [place] % (Auto) 5.5 % (0.0-7.3) 05/02/19 11:39 Eos % (Auto) 0.0 % (0.0-4.3) 05/02/19 11:39 Baso % (Auto) 0.1 % (0.0-1.8) 05/02/19 11:39 Lymph # 0.8 K/mm3 (1.2-5.4) L 05/02/19 11:39 [place] # 0.9 K/mm3 (0.0-0.8) H 05/02/19 11:39 Eos # 0.0 K/mm3 (0.0-0.4) 05/02/19 11:39 Baso # 0.0 K/mm3 (0.0-0.1) 05/02/19 11:39 Seg Neutrophils % 89.5 % (40.0-70.0) H 05/02/19 11:39 Seg Neutrophils # 14.1 K/mm3 (1.8-7.7) H 05/02/19 11:39 PT 13.1 Sec. (12.2-14.9) 05/02/19 11:39 INR 1.02 (0.87-1.13) 05/02/19 11:39 APTT 26.9 Sec. (24.2-36.6) 05/02/19 11:39 D-Dimer 656.64 ng/mlDDU (0-234) H 05/02/19 11:39 POC ABG pH 7.441 (7.35-7.45) 05/02/19 14:23 POC ABG pCO2 42.6 (35-45) 05/02/19 14:23 POC ABG pO2 55 (80-105) L 05/02/19 14:23 POC ABG HCO3 29.0 (22-26 mml/L) 05/02/19 14:23 POC ABG Total CO2 30 (23-27mmol/L) 05/02/19 14:23 POC ABG O2 Sat 89 05/02/19 14:23 POC ABG Base Excess 5 ((-2) - (+3)mmol/L) 05/02/19 14:23 FiO2 28 % 05/02/19 14:23 Sodium 133 mmol/L (137-145) L 05/02/19 11:39 Potassium 4.2 mmol/L (3.6-5.0) 05/02/19 11:39 Chloride 88.2 mmol/L (98-107) L 05/02/19 11:39 Carbon Dioxide 26 mmol/L (22-30) 05/02/19 11:39 Anion Gap 23 mmol/L 05/02/19 11:39 BUN 23 mg/dL (7-17) H 05/02/19 11:39 Creatinine 1.0 mg/dL (0.7-1.2) 05/02/19 11:39 Estimated GFR 57 ml/min 05/02/19 11:39 BUN/Creatinine Ratio 23 % 05/02/19 11:39 Glucose 495 mg/dL (65-100) H 05/03/19 00:18 POC Glucose > 500 (70-105) H 05/02/19 23:39 Lactic Acid 1.50 mmol/L (0.7-2.0) 05/02/19 18:34 Calcium 8.8 mg/dL (8.4-10.2) 05/02/19 11:39 Magnesium 1.50 mg/dL (1.7-2.3) L 05/02/19 11:39 Total Bilirubin 1.30 mg/dL (0.1-1.2) H 05/02/19 11:39 AST 14 units/L (5-40) 05/02/19 11:39 ALT 21 units/L (7-56) 05/02/19 11:39 Alkaline Phosphatase 83 units/L (35-129) 05/02/19 11:39 Total Creatine Kinase 333 units/L (30-135) H 05/02/19 11:39 CK-MB (CK-2) 1.6 ng/mL (0.0-4.0) 05/02/19 11:39 CK-MB (CK-2) Rel Index 0.4 (0-4) 05/02/19 11:39 Troponin T < 0.010 ng/mL (0.00-0.029) 05/02/19 11:39 NT-Pro-B Natriuret Pep 313.7 pg/mL (0-900) 05/02/19 11:39 Total Protein 7.3 g/dL (6.3-8.2) 05/02/19 11:39 Albumin 3.7 g/dL (3.9-5) L 05/02/19 11:39 Albumin/Globulin Ratio 1.0 % 05/02/19 11:39 Urine Color Straw (Yellow) 05/02/19 12:06 Urine Turbidity Clear (Clear) 05/02/19 12:06 Urine pH 5.0 (5.0-7.0) 05/02/19 12:06 Ur Specific [place] 1.014 (1.003-1.030) 05/02/19 12:06 Urine Protein <15 mg/dl mg/dL (Negative) 05/02/19 12:06 Urine Glucose (UA) >=500 mg/dL (Negative) 05/02/19 12:06 Urine Ketones Tr mg/dL (Negative) 05/02/19 12:06 Urine Blood Sm (Negative) 05/02/19 12:06 Urine Nitrite Neg (Negative) 05/02/19 12:06 Urine Bilirubin Neg (Negative) 05/02/19 12:06 Urine Urobilinogen < 2.0 mg/dL (<2.0) 05/02/19 12:06 Ur Leukocyte Esterase Mod (Negative) 05/02/19 12:06 Urine WBC (Auto) 36.0 /HPF (0.0-6.0) H 05/02/19 12:06 Urine RBC (Auto) 4.0 /HPF (0.0-6.0) 05/02/19 12:06 U Epithel Cells (Auto) 1.0 /HPF (0-13.0) 05/02/19 12:06 Urine WBC Clumps 3+ /HPF 05/02/19 12:06 - Imaging and Cardiology EKG: report reviewed (NSR 98/min) Chest x-ray: report reviewed (LLL Pna) CT scan - chest: report reviewed (LLLPna,No PE) Assessment and Plan Advance Directives: Yes (Full code) VTE prophylaxis?: Chemical Plan of care discussed with patient/family: Yes - Patient Problems (1) SIRS (systemic inflammatory response syndrome) Current Visit: Yes Status: Acute Plan to address problem: Elevated Lactic acid level and Leukocytosis and fever IV abx initiated (2) LLL pneumonia Current Visit: Yes Status: Acute Qualifiers: Pneumonia type: due to unspecified organism Qualified Code(s): J18.1 - Lobar pneumonia, unspecified organism Plan to address problem: IV abx and Duonebs for now (3) Acute respiratory failure Current Visit: Yes Status: Acute Qualifiers: Respiratory failure complication: hypoxia Qualified Code(s): J96.01 - Acute respiratory failure with hypoxia Plan to address problem: Nasal canula O2 Duonebs IV steroids and IV abx Bipap if necessary (4) T2DM (type 2 diabetes mellitus) Current Visit: Yes Status: Chronic Qualifiers: Diabetes mellitus [employer] insulin use: without nursing home use Plan to address problem: Check A1c Cont oral hypoglycemics and coverage (5) CHF (congestive heart failure) Current Visit: Yes Status: Chronic Qualifiers: Heart failure type: combined systolic and diastolic Heart failure chronicity: chronic Qualified Code(s): I50.42 - Chronic combined systolic (congestive) and diastolic (congestive) heart failure Plan to address problem: Cont Lasix (6) HLD (hyperlipidemia) Current Visit: Yes Status: Chronic Qualifiers: Hyperlipidemia type: mixed hyperlipidemia Qualified Code(s): E78.2 - Mixed hyperlipidemia Plan to address problem: Cont Statins (7) Hyponatremia Current Visit: Yes Status: Acute Plan to address problem: Mcild Gentle Hydration in view of CHF (8) Malnutrition Current Visit: Yes Status: Chronic Qualifiers: Protein-calorie malnutrition severity: mild Plan to address problem: Dietitian consult (9) DVT prophylaxis Current Visit: Yes Status: Acute Plan to address problem: On Lovenox and GI prophylaxis
[2019-05-03] MEDS: BROVANA NEBU IH SCH ×2 (07:49→20:32)
[2019-05-03] MEDS: DUONEB *Not for PRN Use IH SCH ×4 (07:50→20:32)
[2019-05-03] MEDS: PULMICORT IH SCH ×2 (07:50→20:32)
[2019-05-03] MEDS: SOLU-Medrol IV SCH ×3 (08:01→21:50)
[2019-05-03] MEDS: MAXIPIME/NS 2 GM/100 ML 2 GM/100 ML BAG IV SCH ×3 (08:01→21:48)
--- NOTE | 2019-05-03 08:25 | Progress Note ---
Assessment and Plan Assessment and plan: Poss sepsis due to pneumonia, UTI Cont Cefepime and vancomycin Acute respiratory failure due to pneumonia and asthma exacerbation suplemental Oxygen Pulm consulted Left lower lobe pneumonia. Admitted to [facility] Cefepime, Carlos Manuelo Pulmonology following Diabetes mellitus type 2, uncontrolled start Novolin 70/30 bid Sliding scale Check a1C Asthma exacerbation Solu-medrol iv Chest pain, atypical Likely due to cough from asthma,pneumonia Full code status History Interval history: Less shortness of breath Less cough Less chest pain Hospitalist Physical - Physical exam Narrative exam: Gen: Not in acute distress, Lying in bed,obese HEENT: Normocephalic, atraumatic Neck: supple, no JVD Heart: S1 and S2 reg, no murmurs, rubs or gallop Lungs: Crackles left base, bilateral rhonchi, wheeze Abd: soft, non tender, non distended, normal BS, Ext: No edema, no clubbing, no cyanosis Neuro: Awake, alert, oriented X 3, no focal neurological signs - Constitutional Vitals: Temp Pulse Resp BP Pulse Ox 98.6 F 694 H 20 138/78 94 05/03/19 03:57 05/03/19 07:50 05/03/19 07:50 05/03/19 07:20 05/03/19 07:50 General appearance: Present: no acute distress, obese Results - Labs CBC & Chem 7: 05/03/19 09:37 05/03/19 09:37 Labs: Laboratory Last Values WBC 15.7 K/mm3 (4.5-11.0) H 05/02/19 11:39 RBC 4.62 M/mm3 (3.65-5.03) 05/02/19 11:39 Hgb 13.5 gm/dl (10.1-14.3) 05/02/19 11:39 Hct 40.6 % (30.3-42.9) 05/02/19 11:39 MCV 88 fl (79-97) 05/02/19 11:39 MCH 29 pg (28-32) 05/02/19 11:39 MCHC 33 % (30-34) 05/02/19 11:39 RDW 15.4 % (13.2-15.2) H 05/02/19 11:39 Plt Count 277 K/mm3 (140-440) 05/02/19 11:39 Lymph % (Auto) 4.9 % (13.4-35.0) L 05/02/19 11:39 [place] % (Auto) 5.5 % (0.0-7.3) 05/02/19 11:39 Eos % (Auto) 0.0 % (0.0-4.3) 05/02/19 11:39 Baso % (Auto) 0.1 % (0.0-1.8) 05/02/19 11:39 Lymph # 0.8 K/mm3 (1.2-5.4) L 05/02/19 11:39 [place] # 0.9 K/mm3 (0.0-0.8) H 05/02/19 11:39 Eos # 0.0 K/mm3 (0.0-0.4) 05/02/19 11:39 Baso # 0.0 K/mm3 (0.0-0.1) 05/02/19 11:39 Seg Neutrophils % 89.5 % (40.0-70.0) H 05/02/19 11:39 Seg Neutrophils # 14.1 K/mm3 (1.8-7.7) H 05/02/19 11:39 PT 13.1 Sec. (12.2-14.9) 05/02/19 11:39 INR 1.02 (0.87-1.13) 05/02/19 11:39 APTT 26.9 Sec. (24.2-36.6) 05/02/19 11:39 D-Dimer 656.64 ng/mlDDU (0-234) H 05/02/19 11:39 POC ABG pH 7.441 (7.35-7.45) 05/02/19 14:23 POC ABG pCO2 42.6 (35-45) 05/02/19 14:23 POC ABG pO2 55 (80-105) L 05/02/19 14:23 POC ABG HCO3 29.0 (22-26 mml/L) 05/02/19 14:23 POC ABG Total CO2 30 (23-27mmol/L) 05/02/19 14:23 POC ABG O2 Sat 89 05/02/19 14:23 POC ABG Base Excess 5 ((-2) - (+3)mmol/L) 05/02/19 14:23 FiO2 28 % 05/02/19 14:23 Sodium 133 mmol/L (137-145) L 05/02/19 11:39 Potassium 4.2 mmol/L (3.6-5.0) 05/02/19 11:39 Chloride 88.2 mmol/L (98-107) L 05/02/19 11:39 Carbon Dioxide 26 mmol/L (22-30) 05/02/19 11:39 Anion Gap 23 mmol/L 05/02/19 11:39 BUN 23 mg/dL (7-17) H 05/02/19 11:39 Creatinine 1.0 mg/dL (0.7-1.2) 05/02/19 11:39 Estimated GFR 57 ml/min 05/02/19 11:39 BUN/Creatinine Ratio 23 % 05/02/19 11:39 Glucose 495 mg/dL (65-100) H 05/03/19 00:18 POC Glucose 369 (70-105) H 05/03/19 07:44 Lactic Acid 1.50 mmol/L (0.7-2.0) 05/02/19 18:34 Calcium 8.8 mg/dL (8.4-10.2) 05/02/19 11:39 Magnesium 1.50 mg/dL (1.7-2.3) L 05/02/19 11:39 Total Bilirubin 1.30 mg/dL (0.1-1.2) H 05/02/19 11:39 AST 14 units/L (5-40) 05/02/19 11:39 ALT 21 units/L (7-56) 05/02/19 11:39 Alkaline Phosphatase 83 units/L (35-129) 05/02/19 11:39 Total Creatine Kinase 333 units/L (30-135) H 05/02/19 11:39 CK-MB (CK-2) 1.6 ng/mL (0.0-4.0) 05/02/19 11:39 CK-MB (CK-2) Rel Index 0.4 (0-4) 05/02/19 11:39 Troponin T < 0.010 ng/mL (0.00-0.029) 05/02/19 11:39 NT-Pro-B Natriuret Pep 313.7 pg/mL (0-900) 05/02/19 11:39 Total Protein 7.3 g/dL (6.3-8.2) 05/02/19 11:39 Albumin 3.7 g/dL (3.9-5) L 05/02/19 11:39 Albumin/Globulin Ratio 1.0 % 05/02/19 11:39 Urine Color Straw (Yellow) 05/02/19 12:06 Urine Turbidity Clear (Clear) 05/02/19 12:06 Urine pH 5.0 (5.0-7.0) 05/02/19 12:06 Ur Specific [place] 1.014 (1.003-1.030) 05/02/19 12:06 Urine Protein <15 mg/dl mg/dL (Negative) 05/02/19 12:06 Urine Glucose (UA) >=500 mg/dL (Negative) 05/02/19 12:06 Urine Ketones Tr mg/dL (Negative) 05/02/19 12:06 Urine Blood Sm (Negative) 05/02/19 12:06 Urine Nitrite Neg (Negative) 05/02/19 12:06 Urine Bilirubin Neg (Negative) 05/02/19 12:06 Urine Urobilinogen < 2.0 mg/dL (<2.0) 05/02/19 12:06 Ur Leukocyte Esterase Mod (Negative) 05/02/19 12:06 Urine WBC (Auto) 36.0 /HPF (0.0-6.0) H 05/02/19 12:06 Urine RBC (Auto) 4.0 /HPF (0.0-6.0) 05/02/19 12:06 U Epithel Cells (Auto) 1.0 /HPF (0-13.0) 05/02/19 12:06 Urine WBC Clumps 3+ /HPF 05/02/19 12:06 Active Medications - Current Medications Current Medications: Generic Name Dose Route Start Last Admin Trade Name Freq PRN Reason Stop Dose Admin Albuterol/Ipratropium 1 ampul 05/03/19 08:00 05/03/19 07:50 Duoneb *Not For Prn Use* IH 1 ampul QIDRT WILIAN Administration Arformoterol Tartrate 15 mcg 05/03/19 08:00 05/03/19 07:49 Brovana Nebu IH 15 mcg Q12HRT WILIAN Administration Budesonide 0.5 mg 05/03/19 08:00 05/03/19 07:50 Pulmicort IH 0.5 mg Q12HRT WILIAN Administration Cyclobenzaprine HCl 10 mg 05/03/19 10:00 Flexeril PO DAILY WILIAN Enoxaparin Sodium 40 mg 05/03/19 22:00 Lovenox SUB-Q QDAY@2200 WILIAN Furosemide 40 mg 05/02/19 22:00 05/02/19 23:17 Lasix PO 40 mg QDAY WILIAN Administration Vancomycin HCl 1,500 mg/ 530 mls @ 333.333 mls/hr 05/03/19 02:00 05/03/19 02:27 Sodium Chloride IV 333.333 mls/hr Q12H WILIAN Administration Cefepime HCl 2 gm in 100 mls @ 200 mls/hr 05/02/19 22:00 05/03/19 08:01 Maxipime/Ns 2 Gm/100 Ml IV 200 mls/hr Q8HR WILIAN Administration Protocol Insulin Human Lispro 0 unit 05/02/19 22:00 05/03/19 08:00 Humalog SUB-Q 8 unit ACHS [facility] Administration Protocol Methylprednisolone Sodium Succinate 40 mg 05/03/19 07:00 05/03/19 08:01 Solu-Medrol IV 40 mg Q8HR WILIAN Administration Montelukast Sodium 10 mg 05/03/19 18:00 Singulair PO QPM [facility] Potassium Chloride 10 meq 05/02/19 22:00 05/02/19 23:17 K-Dur PO 10 meq BID WILIAN Administration Pravastatin Sodium 10 mg 05/02/19 22:00 05/02/19 23:18 Pravachol PO 10 mg QHS WILIAN Administration Venlafaxine HCl 112.5 mg 05/02/19 22:00 05/02/19 23:16 Effexor PO 112.5 mg QDAY WILIAN Administration Zolpidem Tartrate 10 mg 05/02/19 22:03 Ambien PO QHS PRN Sleep
[2019-05-03] MEDS: FLEXERIL PO SCH (09:24)
[2019-05-03] MEDS: EFFEXOR PO SCH (09:24)
[2019-05-03] MEDS: LASIX PO SCH (09:24)
[2019-05-03] MEDS: K-DUR PO SCH ×2 (09:24→21:50)
[2019-05-03 10:58] LABS: Hematocrit 40.7 % (30.3-42.9); Hemoglobin 13.4 gm/dl (10.1-14.3); Mean Corpuscular HGB Conc 33 % (30-34); Mean Corpuscular Volume 89 fl (79-97); Platelet Count 243 K/mm3 (140-440); Red Blood Count 4.55 M/mm3 (3.65-5.03); Red Cell Distribution Width 15.7 % (13.2-15.2)
[2019-05-03 10:59] LABS: BUN/Creatinine Ratio 29; Blood Urea Nitrogen 26 mg/dL (7-17); Calcium 8.6 mg/dL (8.4-10.2); Hemolysis Index 13
[2019-05-03] MEDS: SINGULAIR PO SCH (17:09)
--- NOTE | 2019-05-03 21:41 | Consultation ---
History of Present Illness Consult date: 05/03/19 Requesting physician: MATHEW JAIMES Reason for consult: pneumonia History of present illness: 59 yo developed increased cough and SOB 9 days ago. Treated with 5-6 days of Biaxin without relief. In fact she worsened. She was hypoxic in the low to mid 80s. She was febrile. She was having chest pain lower back both sides, primarily from coughing. Denies hemoptysis. Has hx of asthma and takes Dulera and Ventolin prn. Feeling better since admit. Active Medications Albuterol/Ipratropium (Duoneb *Not For Prn Use*) 1 ampul IH QIDRT [facility] Last Admin: 05/03/19 20:32 Dose: 1 ampul Documented by: Arformoterol Tartrate (Brovana Nebu) 15 mcg IH Q12HRT [facility] Last Admin: 05/03/19 20:32 Dose: 15 mcg Documented by: Budesonide (Pulmicort) 0.5 mg IH Q12HRT [facility] Last Admin: 05/03/19 20:32 Dose: 0.5 mg Documented by: Cyclobenzaprine HCl (Flexeril) 10 mg PO DAILY [facility] Last Admin: 05/03/19 09:24 Dose: 10 mg Documented by: Enoxaparin Sodium (Lovenox) 40 mg SUB-Q QDAY@2200 WILIAN Furosemide (Lasix) 40 mg PO QDAY [facility] Last Admin: 05/03/19 09:24 Dose: 40 mg Documented by: Vancomycin HCl 1,500 mg/ (Sodium Chloride) 530 mls @ 333.333 mls/hr IV Q12H [facility] Last Admin: 05/03/19 13:29 Dose: 333.333 mls/hr Documented by: Cefepime HCl (Maxipime/Ns 2 Gm/100 Ml) 2 gm in 100 mls @ 200 mls/hr IV Q8HR [facility]; Protocol Last Admin: 05/03/19 13:30 Dose: 200 mls/hr Documented by: Insulin Human Isoph/Insulin Regular (Humulin 70/30) 10 unit SUB-Q BIDDIAB [facility] Last Admin: 05/03/19 17:10 Dose: 10 unit Documented by: Insulin Human Lispro (Humalog) 0 unit SUB-Q ACHS [facility]; Protocol Last Admin: 05/03/19 17:09 Dose: 6 unit Documented by: Methylprednisolone Sodium Succinate (Solu-Medrol) 40 mg IV Q8HR [facility] Last Admin: 05/03/19 13:30 Dose: 40 mg Documented by: Montelukast Sodium (Singulair) 10 mg PO QPM [facility] Last Admin: 05/03/19 17:09 Dose: 10 mg Documented by: Potassium Chloride (K-Dur) 10 meq PO BID [facility] Last Admin: 05/03/19 09:24 Dose: 10 meq Documented by: Pravastatin Sodium (Pravachol) 10 mg PO QHS [facility] Last Admin: 05/02/19 23:18 Dose: 10 mg Documented by: Venlafaxine HCl (Effexor) 112.5 mg PO QDAY [facility] Last Admin: 05/03/19 09:24 Dose: 112.5 mg Documented by: Zolpidem Tartrate (Ambien) 10 mg PO QHS PRN PRN Reason: Sleep Past History Past Medical History: other (asthma, HLD, diabetes) Social history: full code. denies: smoking, alcohol abuse, prescription drug abuse, IV drug use Family history: other (No pulm issues reported) Medications and Allergies Allergies Allergy/AdvReac Type Severity Reaction Status Date / Time NSAIDS (Non-Steroidal Allergy Bleeding Verified 02/21/17 08:44 Anti-Inflamma Home Medications Medication Instructions Recorded Confirmed Last Taken Type Cyclobenzaprine [Flexeril 10 MG 10 mg PO DAILY 01/27/17 05/02/19 05/02/19 History TAB] Furosemide [Lasix TAB] 40 mg PO QDAY 01/27/17 05/02/19 05/02/19 History Metformin HCl [Glucophage] 1,000 mg PO BID 01/27/17 05/02/19 05/02/19 History Mometasone/Formoterol [Dulera 100 2 puff IH BID 01/27/17 05/02/19 05/02/19 History Mcg/5 Mcg Inhaler] Montelukast [Singulair] 10 mg PO QPM 01/27/17 05/02/19 05/02/19 History Potassium Chloride [K-Dur] 1 tab PO BID 01/27/17 05/02/19 05/02/19 History Pravastatin Sodium [Pravastatin] 10 mg PO QHS 01/27/17 05/02/19 05/02/19 History Venlafaxine [Effexor 37.5mg tab] 112.5 mg PO QDAY 01/27/17 05/02/19 05/02/19 History Zolpidem Tartrate [Edluar SUBL] 10 mg SL QHS PRN 01/27/17 05/02/19 05/02/19 History glipiZIDE [Glucotrol] 5 mg PO BID 01/27/17 05/02/19 05/02/19 History Clarithromycin [Biaxin] 500 mg PO BID 05/02/19 05/02/19 05/02/19 History Active Meds: Active Medications Albuterol/Ipratropium (Duoneb *Not For Prn Use*) 1 ampul IH QIDRT [facility] Last Admin: 05/03/19 20:32 Dose: 1 ampul Documented by: Arformoterol Tartrate (Brovana Nebu) 15 mcg IH Q12HRT [facility] Last Admin: 05/03/19 20:32 Dose: 15 mcg Documented by: Budesonide (Pulmicort) 0.5 mg IH Q12HRT [facility] Last Admin: 05/03/19 20:32 Dose: 0.5 mg Documented by: Cyclobenzaprine HCl (Flexeril) 10 mg PO DAILY [facility] Last Admin: 05/03/19 09:24 Dose: 10 mg Documented by: Enoxaparin Sodium (Lovenox) 40 mg SUB-Q QDAY@2200 WILIAN Furosemide (Lasix) 40 mg PO QDAY [facility] Last Admin: 05/03/19 09:24 Dose: 40 mg Documented by: Vancomycin HCl 1,500 mg/ (Sodium Chloride) 530 mls @ 333.333 mls/hr IV Q12H [facility] Last Admin: 05/03/19 13:29 Dose: 333.333 mls/hr Documented by: Cefepime HCl (Maxipime/Ns 2 Gm/100 Ml) 2 gm in 100 mls @ 200 mls/hr IV Q8HR [facility]; Protocol Last Admin: 05/03/19 13:30 Dose: 200 mls/hr Documented by: Insulin Human Isoph/Insulin Regular (Humulin 70/30) 10 unit SUB-Q BIDDIAB [facility] Last Admin: 05/03/19 17:10 Dose: 10 unit Documented by: Insulin Human Lispro (Humalog) 0 unit SUB-Q ACHS [facility]; Protocol Last Admin: 10/11/19 17:09 Dose: 6 unit Documented by: Methylprednisolone Sodium Succinate (Solu-Medrol) 40 mg IV Q8HR [facility] Last Admin: 05/03/19 13:30 Dose: 40 mg Documented by: Montelukast Sodium (Singulair) 10 mg PO QPM [facility] Last Admin: 05/03/19 17:09 Dose: 10 mg Documented by: Potassium Chloride (K-Dur) 10 meq PO BID [facility] Last Admin: 05/03/19 09:24 Dose: 10 meq Documented by: Pravastatin Sodium (Pravachol) 10 mg PO QHS [facility] Last Admin: 05/02/19 23:18 Dose: 10 mg Documented by: Venlafaxine HCl (Effexor) 112.5 mg PO QDAY [facility] Last Admin: 05/03/19 09:24 Dose: 112.5 mg Documented by: Zolpidem Tartrate (Ambien) 10 mg PO QHS PRN PRN Reason: Sleep Review of Systems All systems: negative Physical Examination Vital signs: Vital Signs Temp Pulse Resp BP Pulse Ox 97.9 F 118 H 20 116/77 86 05/02/19 11:19 05/02/19 11:19 05/02/19 11:19 05/02/19 11:19 05/02/19 11:19 Vital Signs - 24 hr 05/02/19 05/02/19 05/02/19 21:41 21:51 22:00 Temperature Pulse Rate 71 72 72 Pulse Rate [ Anterior Bilateral Throughout] Pulse Rate [ From Monitor] Respiratory 28 H 15 17 Rate Respiratory Rate [Anterior Bilateral Throughout] Blood Pressure 129/69 129/69 138/70 O2 Sat by Pulse 94 95 95 Oximetry 05/02/19 05/02/19 05/02/19 22:11 22:21 22:31 Temperature Pulse Rate 71 71 78 Pulse Rate [ Anterior Bilateral Throughout] Pulse Rate [ From Monitor] Respiratory 22 20 29 H Rate Respiratory Rate [Anterior Bilateral Throughout] Blood Pressure 138/70 138/70 138/70 O2 Sat by Pulse 93 95 96 Oximetry 05/02/19 05/02/19 05/02/19 22:41 22:51 23:00 Temperature Pulse Rate 72 72 73 Pulse Rate [ Anterior Bilateral Throughout] Pulse Rate [ From Monitor] Respiratory 24 26 H 25 H Rate Respiratory Rate [Anterior Bilateral Throughout] Blood Pressure 138/70 138/70 133/73 O2 Sat by Pulse 95 93 91 Oximetry 05/02/19 05/02/19 05/02/19 23:11 23:21 23:31 Temperature Pulse Rate 74 69 68 Pulse Rate [ Anterior Bilateral Throughout] Pulse Rate [ From Monitor] Respiratory 26 H 23 22 Rate Respiratory Rate [Anterior Bilateral Throughout] Blood Pressure 133/73 133/73 133/73 O2 Sat by Pulse 92 96 96 Oximetry 05/02/19 05/02/19 05/02/19 23:41 23:44 23:47 Temperature 98.2 F Pulse Rate 66 67 Pulse Rate [ Anterior Bilateral Throughout] Pulse Rate [ From Monitor] Respiratory 19 22 Rate Respiratory Rate [Anterior Bilateral Throughout] Blood Pressure 133/73 133/73 O2 Sat by Pulse 92 95 Oximetry 05/02/19 05/03/19 05/03/19 23:51 00:00 00:01 Temperature Pulse Rate 66 67 Pulse Rate [ Anterior Bilateral Throughout] Pulse Rate [ 69 From Monitor] Respiratory 23 18 20 Rate Respiratory Rate [Anterior Bilateral Throughout] Blood Pressure 133/73 148/84 O2 Sat by Pulse 93 97 95 Oximetry 05/03/19 05/03/19 05/03/19 00:11 00:21 00:31 Temperature Pulse Rate 93 H 83 75 Pulse Rate [ Anterior Bilateral Throughout] Pulse Rate [ From Monitor] Respiratory 23 26 H 23 Rate Respiratory Rate [Anterior Bilateral Throughout] Blood Pressure 148/84 148/84 148/84 O2 Sat by Pulse 97 94 94 Oximetry 05/03/19 05/03/19 05/03/19 00:41 00:51 01:00 Temperature Pulse Rate 70 73 68 Pulse Rate [ Anterior Bilateral Throughout] Pulse Rate [ From Monitor] Respiratory 19 20 23 Rate Respiratory Rate [Anterior Bilateral Throughout] Blood Pressure 148/84 148/84 143/78 O2 Sat by Pulse 96 96 96 Oximetry 05/03/19 05/03/19 05/03/19 01:11 01:21 01:31 Temperature Pulse Rate 69 76 72 Pulse Rate [ Anterior Bilateral Throughout] Pulse Rate [ From Monitor] Respiratory 18 24 25 H Rate Respiratory Rate [Anterior Bilateral Throughout] Blood Pressure 143/78 148/84 148/84 O2 Sat by Pulse 94 97 92 Oximetry 05/03/19 05/03/19 05/03/19 01:41 01:51 02:00 Temperature Pulse Rate 71 73 81 Pulse Rate [ Anterior Bilateral Throughout] Pulse Rate [ From Monitor] Respiratory 25 H 19 22 Rate Respiratory Rate [Anterior Bilateral Throughout] Blood Pressure 148/84 148/84 160/92 O2 Sat by Pulse 91 91 97 Oximetry 05/03/19 05/03/19 05/03/19 02:11 02:20 02:30 Temperature Pulse Rate 75 76 70 Pulse Rate [ Anterior Bilateral Throughout] Pulse Rate [ From Monitor] Respiratory 27 H 27 H 25 H Rate Respiratory Rate [Anterior Bilateral Throughout] Blood Pressure 160/92 160/92 O2 Sat by Pulse 92 90 93 Oximetry 05/03/19 05/03/19 05/03/19 02:40 02:50 03:00 Temperature Pulse Rate 69 68 69 Pulse Rate [ Anterior Bilateral Throughout] Pulse Rate [ From Monitor] Respiratory 21 23 25 H Rate Respiratory Rate [Anterior Bilateral Throughout] Blood Pressure 160/92 160/92 160/92 O2 Sat by Pulse 93 92 91 Oximetry 05/03/19 05/03/19 05/03/19 03:10 03:20 03:30 Temperature Pulse Rate 80 69 68 Pulse Rate [ Anterior Bilateral Throughout] Pulse Rate [ From Monitor] Respiratory 24 19 23 Rate Respiratory Rate [Anterior Bilateral Throughout] Blood Pressure 133/77 133/77 133/77 O2 Sat by Pulse 95 95 94 Oximetry 05/03/19 05/03/19 05/03/19 03:40 03:50 03:57 Temperature 98.6 F Pulse Rate 65 66 Pulse Rate [ Anterior Bilateral Throughout] Pulse Rate [ From Monitor] Respiratory 26 H 24 Rate Respiratory Rate [Anterior Bilateral Throughout] Blood Pressure 133/77 133/77 O2 Sat by Pulse 93 92 Oximetry 05/03/19 05/03/19 05/03/19 04:00 04:10 04:20 Temperature Pulse Rate 68 68 64 Pulse Rate [ Anterior Bilateral Throughout] Pulse Rate [ 65 From Monitor] Respiratory 25 H 25 H 22 Rate Respiratory Rate [Anterior Bilateral Throughout] Blood Pressure 133/77 125/69 125/69 O2 Sat by Pulse 90 91 91 Oximetry 05/03/19 05/03/19 05/03/19 04:30 04:40 04:50 Temperature Pulse Rate 64 64 63 Pulse Rate [ Anterior Bilateral Throughout] Pulse Rate [ From Monitor] Respiratory 24 22 23 Rate Respiratory Rate [Anterior Bilateral Throughout] Blood Pressure 125/69 125/69 125/69 O2 Sat by Pulse 91 90 90 Oximetry 1005/03/19 05/03/19 05:00 05:10 05:20 Temperature Pulse Rate 62 63 64 Pulse Rate [ Anterior Bilateral Throughout] Pulse Rate [ From Monitor] Respiratory 22 20 21 Rate Respiratory Rate [Anterior Bilateral Throughout] Blood Pressure 137/80 137/80 137/80 O2 Sat by Pulse 89 92 92 Oximetry 05/03/19 05/03/19 05/03/19 05:30 05:40 05:50 Temperature Pulse Rate 64 64 65 Pulse Rate [ Anterior Bilateral Throughout] Pulse Rate [ From Monitor] Respiratory 23 21 21 Rate Respiratory Rate [Anterior Bilateral Throughout] Blood Pressure 137/80 137/80 137/80 O2 Sat by Pulse 92 92 93 Oximetry 05/03/19 05/03/19 05/03/19 06:00 06:10 06:20 Temperature Pulse Rate 64 65 70 Pulse Rate [ Anterior Bilateral Throughout] Pulse Rate [ From Monitor] Respiratory 22 22 18 Rate Respiratory Rate [Anterior Bilateral Throughout] Blood Pressure 144/83 144/83 144/83 O2 Sat by Pulse 90 93 96 Oximetry 05/03/19 05/03/19 05/03/19 06:30 06:40 06:50 Temperature Pulse Rate 74 80 66 Pulse Rate [ Anterior Bilateral Throughout] Pulse Rate [ From Monitor] Respiratory 20 21 20 Rate Respiratory Rate [Anterior Bilateral Throughout] Blood Pressure 144/83 144/83 144/83 O2 Sat by Pulse 93 96 97 Oximetry 05/03/19 05/03/19 05/03/19 07:00 07:10 07:20 Temperature Pulse Rate 65 65 67 Pulse Rate [ Anterior Bilateral Throughout] Pulse Rate [ From Monitor] Respiratory 24 21 19 Rate Respiratory Rate [Anterior Bilateral Throughout] Blood Pressure 138/78 138/78 138/78 O2 Sat by Pulse 96 95 93 Oximetry 05/03/19 05/03/19 05/03/19 07:30 07:36 07:40 Temperature Pulse Rate 63 68 Pulse Rate [ Anterior Bilateral Throughout] Pulse Rate [ 67 From Monitor] Respiratory 24 19 21 Rate Respiratory Rate [Anterior Bilateral Throughout] Blood Pressure 138/78 138/78 O2 Sat by Pulse 92 93 94 Oximetry 05/03/19 05/03/19 05/03/19 07:50 08:00 08:10 Temperature 98.2 F Pulse Rate 65 65 74 Pulse Rate [ 64 Anterior Bilateral Throughout] Pulse Rate [ From Monitor] Respiratory 19 19 16 Rate Respiratory 20 Rate [Anterior Bilateral Throughout] Blood Pressure 138/78 143/83 143/83 O2 Sat by Pulse 91 94 93 Oximetry 05/03/19 05/03/19 05/03/19 08:20 08:30 08:40 Temperature Pulse Rate 84 88 92 H Pulse Rate [ Anterior Bilateral Throughout] Pulse Rate [ From Monitor] Respiratory 17 25 H 20 Rate Respiratory Rate [Anterior Bilateral Throughout] Blood Pressure 138/78 138/78 138/78 O2 Sat by Pulse 90 91 88 Oximetry 05/03/19 05/03/19 05/03/19 08:50 08:58 09:00 Temperature Pulse Rate 95 H 95 H 115 H Pulse Rate [ Anterior Bilateral Throughout] Pulse Rate [ From Monitor] Respiratory 22 24 Rate Respiratory Rate [Anterior Bilateral Throughout] Blood Pressure 138/78 146/84 O2 Sat by Pulse 94 93 Oximetry 05/03/19 05/03/19 05/03/19 09:10 09:20 09:30 Temperature Pulse Rate 102 H 96 H 94 H Pulse Rate [ Anterior Bilateral Throughout] Pulse Rate [ From Monitor] Respiratory 19 20 10 L Rate Respiratory Rate [Anterior Bilateral Throughout] Blood Pressure 146/84 146/84 146/84 O2 Sat by Pulse 96 96 92 Oximetry 05/03/19 05/03/19 05/03/19 09:40 09:50 10:00 Temperature Pulse Rate 84 82 81 Pulse Rate [ Anterior Bilateral Throughout] Pulse Rate [ From Monitor] Respiratory 14 15 19 Rate Respiratory Rate [Anterior Bilateral Throughout] Blood Pressure 146/84 146/84 125/76 O2 Sat by Pulse 95 94 93 Oximetry 05/03/19 05/03/19 05/03/19 10:10 10:20 10:30 Temperature Pulse Rate 79 111 H Pulse Rate [ Anterior Bilateral Throughout] Pulse Rate [ From Monitor] Respiratory 21 Rate Respiratory Rate [Anterior Bilateral Throughout] Blood Pressure 125/76 125/76 125/76 O2 Sat by Pulse 94 93 93 Oximetry 05/03/19 05/03/19 05/03/19 10:40 10:50 11:00 Temperature Pulse Rate 85 83 Pulse Rate [ Anterior Bilateral Throughout] Pulse Rate [ From Monitor] Respiratory 15 22 Rate Respiratory Rate [Anterior Bilateral Throughout] Blood Pressure 125/76 125/76 127/90 O2 Sat by Pulse 94 94 91 Oximetry 05/03/19 05/03/19 05/03/19 11:10 11:20 11:30 Temperature Pulse Rate 80 76 74 Pulse Rate [ Anterior Bilateral Throughout] Pulse Rate [ From Monitor] Respiratory 24 23 22 Rate Respiratory Rate [Anterior Bilateral Throughout] Blood Pressure 127/90 127/90 127/90 O2 Sat by Pulse 94 97 94 Oximetry 05/03/19 05/03/19 05/03/19 11:40 11:41 11:50 Temperature Pulse Rate 73 80 Pulse Rate [ 79 Anterior Bilateral Throughout] Pulse Rate [ From Monitor] Respiratory 24 22 Rate Respiratory 24 Rate [Anterior Bilateral Throughout] Blood Pressure 127/90 127/90 O2 Sat by Pulse 92 88 Oximetry 05/03/19 05/03/19 05/03/19 12:00 12:10 12:20 Temperature 98.1 F Pulse Rate 86 83 99 H Pulse Rate [ Anterior Bilateral Throughout] Pulse Rate [ 96 H From Monitor] Respiratory 17 15 15 Rate Respiratory Rate [Anterior Bilateral Throughout] Blood Pressure 135/75 135/75 135/75 O2 Sat by Pulse 96 95 93 Oximetry 05/03/19 05/03/19 05/03/19 12:30 12:40 12:50 Temperature Pulse Rate 103 H 97 H Pulse Rate [ Anterior Bilateral Throughout] Pulse Rate [ From Monitor] Respiratory 27 H 17 Rate Respiratory Rate [Anterior Bilateral Throughout] Blood Pressure 127/90 127/90 127/90 O2 Sat by Pulse 95 96 98 Oximetry 05/03/19 05/03/19 05/03/19 13:00 13:10 13:20 Temperature Pulse Rate 92 H 90 Pulse Rate [ Anterior Bilateral Throughout] Pulse Rate [ From Monitor] Respiratory 23 21 Rate Respiratory Rate [Anterior Bilateral Throughout] Blood Pressure 125/66 125/66 125/66 O2 Sat by Pulse 96 94 91 Oximetry 05/03/19 05/03/19 05/03/19 13:30 13:40 13:50 Temperature Pulse Rate 86 83 80 Pulse Rate [ Anterior Bilateral Throughout] Pulse Rate [ From Monitor] Respiratory 23 20 22 Rate Respiratory Rate [Anterior Bilateral Throughout] Blood Pressure 135/75 135/75 135/75 O2 Sat by Pulse 92 93 93 Oximetry 05/03/19 05/03/19 05/03/19 14:00 14:10 14:20 Temperature Pulse Rate 81 77 80 Pulse Rate [ Anterior Bilateral Throughout] Pulse Rate [ From Monitor] Respiratory 20 20 20 Rate Respiratory Rate [Anterior Bilateral Throughout] Blood Pressure 127/71 127/71 127/71 O2 Sat by Pulse 91 93 91 Oximetry 05/03/19 05/03/19 05/03/19 14:30 14:40 14:50 Temperature Pulse Rate 80 78 84 Pulse Rate [ Anterior Bilateral Throughout] Pulse Rate [ From Monitor] Respiratory 25 H 19 15 Rate Respiratory Rate [Anterior Bilateral Throughout] Blood Pressure 127/71 127/71 127/71 O2 Sat by Pulse 96 93 95 Oximetry 05/03/19 05/03/19 05/03/19 15:00 15:10 15:20 Temperature Pulse Rate 77 86 77 Pulse Rate [ Anterior Bilateral Throughout] Pulse Rate [ From Monitor] Respiratory 22 20 22 Rate Respiratory Rate [Anterior Bilateral Throughout] Blood Pressure 127/71 127/71 127/71 O2 Sat by Pulse 95 98 95 Oximetry 05/03/19 05/03/19 05/03/19 15:27 15:30 15:40 Temperature Pulse Rate 92 H 82 Pulse Rate [ 80 Anterior Bilateral Throughout] Pulse Rate [ From Monitor] Respiratory 20 17 Rate Respiratory 20 Rate [Anterior Bilateral Throughout] Blood Pressure 127/71 127/71 O2 Sat by Pulse 95 94 Oximetry 05/03/19 05/03/19 05/03/19 15:50 16:00 16:10 Temperature 97.8 F Pulse Rate 77 74 72 Pulse Rate [ Anterior Bilateral Throughout] Pulse Rate [ From Monitor] Respiratory 22 19 22 Rate Respiratory Rate [Anterior Bilateral Throughout] Blood Pressure 127/71 127/71 127/71 O2 Sat by Pulse 98 98 96 Oximetry 05/03/19 05/03/19 05/03/19 16:20 16:30 16:40 Temperature Pulse Rate 71 73 73 Pulse Rate [ Anterior Bilateral Throughout] Pulse Rate [ From Monitor] Respiratory 20 21 19 Rate Respiratory Rate [Anterior Bilateral Throughout] Blood Pressure 127/71 127/71 127/71 O2 Sat by Pulse 97 97 94 Oximetry 05/03/19 05/03/19 05/03/19 16:50 17:00 17:10 Temperature Pulse Rate 74 81 85 Pulse Rate [ Anterior Bilateral Throughout] Pulse Rate [ From Monitor] Respiratory 17 17 20 Rate Respiratory Rate [Anterior Bilateral Throughout] Blood Pressure 127/71 123/67 123/67 O2 Sat by Pulse 98 93 96 Oximetry 05/03/19 05/03/19 05/03/19 17:20 17:30 17:40 Temperature Pulse Rate 81 90 87 Pulse Rate [ Anterior Bilateral Throughout] Pulse Rate [ From Monitor] Respiratory 23 23 13 Rate Respiratory Rate [Anterior Bilateral Throughout] Blood Pressure 123/67 123/67 123/67 O2 Sat by Pulse 93 89 85 Oximetry 05/03/19 05/03/19 05/03/19 17:50 18:00 19:00 Temperature Pulse Rate 92 H 103 H 95 H Pulse Rate [ Anterior Bilateral Throughout] Pulse Rate [ From Monitor] Respiratory 22 20 16 Rate Respiratory Rate [Anterior Bilateral Throughout] Blood Pressure 123/67 141/96 134/75 O2 Sat by Pulse 97 96 95 Oximetry 05/03/19 05/03/19 05/03/19 19:11 19:21 19:31 Temperature Pulse Rate 90 83 91 H Pulse Rate [ Anterior Bilateral Throughout] Pulse Rate [ From Monitor] Respiratory 22 24 16 Rate Respiratory Rate [Anterior Bilateral Throughout] Blood Pressure 134/75 134/75 134/75 O2 Sat by Pulse 92 97 100 Oximetry 05/03/19 05/03/19 05/03/19 19:41 19:51 20:00 Temperature 98 F Pulse Rate 82 86 78 Pulse Rate [ Anterior Bilateral Throughout] Pulse Rate [ From Monitor] Respiratory 16 14 23 Rate Respiratory Rate [Anterior Bilateral Throughout] Blood Pressure 134/75 125/74 117/70 O2 Sat by Pulse 98 97 96 Oximetry 05/03/19 05/03/19 05/03/19 20:11 20:21 20:31 Temperature Pulse Rate 77 87 77 Pulse Rate [ Anterior Bilateral Throughout] Pulse Rate [ From Monitor] Respiratory 25 H 21 21 Rate Respiratory Rate [Anterior Bilateral Throughout] Blood Pressure 117/70 117/70 117/70 O2 Sat by Pulse 98 92 95 Oximetry 05/03/19 05/03/19 05/03/19 20:34 20:41 20:54 Temperature Pulse Rate 77 Pulse Rate [ 82 Anterior Bilateral Throughout] Pulse Rate [ From Monitor] Respiratory 15 Rate Respiratory 18 Rate [Anterior Bilateral Throughout] Blood Pressure 117/70 O2 Sat by Pulse 95 99 Oximetry General appearance: no acute distress, alert Eyes: non-icteric Neck: supple Effort: normal Ascultation: Left: diminished breath sounds (base), Bilateral: wheezes Cardiovascular: regular rate and rhythm (no mrg) Gastrointestinal: normoactive bowel sounds, soft, non-tender, non-distended Integumentary: normal Extremities: no cyanosis, no edema, pink and warm normal mental status, non-focal exam, pupils equal and round mood appropriate, affect normal Results - Laboratory Findings CBC and BMP: 05/03/19 09:37 05/03/19 09:37 ABG POC ABG pH 7.441 (7.35-7.45) 05/02/19 14:23 POC ABG pCO2 42.6 (35-45) 05/02/19 14:23 POC ABG pO2 55 (80-105) L 05/02/19 14:23 POC ABG HCO3 29.0 (22-26 mml/L) 05/02/19 14:23 POC ABG Total CO2 30 (23-27mmol/L) 05/02/19 14:23 POC ABG O2 Sat 89 05/02/19 14:23 PT/INR, D-dimer PT 13.1 Sec. (12.2-14.9) 05/02/19 11:39 INR 1.02 (0.87-1.13) 05/02/19 11:39 D-Dimer 656.64 ng/mlDDU (0-234) H 05/02/19 11:39 Abnormal lab findings: Abnormal Labs 05/02/19 05/02/19 05/02/19 11:39 11:39 11:39 WBC 15.7 H RDW 15.4 H Lymph % (Auto) 4.9 L Lymph # 0.8 L [place] # 0.9 H Seg Neutrophils % 89.5 H Seg Neutrophils # 14.1 H D-Dimer 656.64 H POC ABG pO2 Sodium 133 L Chloride 88.2 L BUN 23 H Glucose 309 H POC Glucose Lactic Acid Magnesium 1.50 L Total Bilirubin 1.30 H Total Creatine Kinase Albumin 3.7 L Urine WBC (Auto) 05/02/19 05/02/19 05/02/19 11:39 12:06 12:40 WBC RDW Lymph % (Auto) Lymph # [place] # Seg Neutrophils % Seg Neutrophils # D-Dimer POC ABG pO2 Sodium Chloride BUN Glucose POC Glucose Lactic Acid 2.20 H* Magnesium Total Bilirubin Total Creatine Kinase 333 H Albumin Urine WBC (Auto) 36.0 H 05/02/19 05/02/19 05/02/19 13:40 14:18 14:23 WBC RDW Lymph % (Auto) Lymph # [place] # Seg Neutrophils % Seg Neutrophils # D-Dimer POC ABG pO2 55 L Sodium Chloride BUN Glucose POC Glucose 322 H Lactic Acid 5.20 H* Magnesium Total Bilirubin Total Creatine Kinase Albumin Urine WBC (Auto) 05/02/19 05/02/19 05/03/19 15:16 23:39 00:18 WBC RDW Lymph % (Auto) Lymph # [place] # Seg Neutrophils % Seg Neutrophils # D-Dimer POC ABG pO2 Sodium Chloride BUN Glucose 495 H POC Glucose > 500 H Lactic Acid 3.70 H* Magnesium Total Bilirubin Total Creatine Kinase Albumin Urine WBC (Auto) 05/03/19 05/03/19 05/03/19 07:44 09:37 09:37 WBC 12.4 H RDW 15.7 H Lymph % (Auto) Lymph # [place] # Seg Neutrophils % Seg Neutrophils # D-Dimer POC ABG pO2 Sodium 133 L Chloride 92.3 L BUN 26 H Glucose 457 H POC Glucose 369 H Lactic Acid Magnesium Total Bilirubin Total Creatine Kinase Albumin Urine WBC (Auto) 05/03/19 05/03/19 11:03 16:42 WBC RDW Lymph % (Auto) Lymph # [place] # Seg Neutrophils % Seg Neutrophils # D-Dimer POC ABG pO2 Sodium Chloride BUN Glucose POC Glucose 389 H 326 H Lactic Acid Magnesium Total Bilirubin Total Creatine Kinase Albumin Urine WBC (Auto) - Diagnostic Findings Chest x-ray: report reviewed, image reviewed CT scan - chest: report reviewed, image reviewed Assessment and Plan Imp: 1. CAP 2. Acute respiratory failure, hypoxia 3. Sepsis 4. Obesity 5. Asthma exac. 6. Hx of PE Rec: 1. Already completed adequate atypical course with Biaxin; agree w/ current ABX; try to obtain sputum culture as she is coughing up purulent sputum 2. Solumedrol, Duonebs, Pulmicort 3. Wean off of O2 to keep sats 88% or > 4. Will need incentive spirometry 5. DVT PPx with Lovenox 6. Further plans pending clinical course Plan of care reviewed w/ patient, she understands/agrees; thanks for the consult
[2019-05-03] MEDS: AMBIEN PO PRN (21:48)
[2019-05-03] MEDS: LOVENOX SUB-Q SCH (21:48)
[2019-05-03] MEDS: PRAVACHOL PO SCH (21:49)
[2019-05-04] MEDS: VANCOMYCIN 1,500 MG in NACL 0.9% 500 ML 500 ML IV SCH ×2 (01:44→14:36)
[2019-05-04] MEDS: MAXIPIME/NS 2 GM/100 ML 2 GM/100 ML BAG IV SCH ×3 (05:58→22:29)
[2019-05-04] MEDS: SOLU-Medrol IV SCH ×2 (05:58→17:45)
[2019-05-04 06:35] LABS: Hematocrit 35.6 % (30.3-42.9); Hemoglobin 11.8 gm/dl (10.1-14.3); Mean Corpuscular HGB Conc 33 % (30-34); Mean Corpuscular Volume 89 fl (79-97); Platelet Count 231 K/mm3 (140-440); Red Blood Count 4.02 M/mm3 (3.65-5.03); Red Cell Distribution Width 15.6 % (13.2-15.2)
[2019-05-04 07:01] LABS: BUN/Creatinine Ratio 28; Blood Urea Nitrogen 25 mg/dL (7-17); Calcium 8.2 mg/dL (8.4-10.2); Hemolysis Index 2
[2019-05-04] MEDS: HumaLOG SUB-Q SCH ×5 (08:15→22:57)
--- NOTE | 2019-05-04 08:26 | Progress Note ---
Assessment and Plan Assessment and plan: Sepsis due to pneumonia, UTI Cont Cefepime and vancomycin Acute respiratory failure due to pneumonia and asthma exacerbation suplemental Oxygen Pulmonology following Left lower lobe pneumonia. Admitted to [facility] Cefepime, Vanco Pulmonology following Diabetes mellitus type 2, uncontrolled Added Novolin 70/30 at 10 Units bid Sliding scale Check a1C Asthma exacerbation Solu-medrol iv Chest pain, atypical Likely due to cough from asthma,pneumonia Full code status History Interval history: Less shortness of breath Still coughing Less chest pain Hospitalist Physical - Physical exam Narrative exam: Gen: Not in acute distress, Lying in bed,obese HEENT: Normocephalic, atraumatic Neck: supple, no JVD Heart: S1 and S2 reg, no murmurs, rubs or gallop Lungs: Crackles left base, bilateral rhonchi, wheeze Abd: soft, non tender, non distended, normal BS, Ext: No edema, no clubbing, no cyanosis Neuro: Awake, alert, oriented X 3, no focal neurological signs - Constitutional Vitals: Temp Pulse Resp BP Pulse Ox 98.0 F 69 18 142/79 98 05/04/19 04:00 05/04/19 06:00 05/04/19 06:00 05/04/19 06:00 05/04/19 06:00 General appearance: Present: no acute distress, obese Results - Labs CBC & Chem 7: 05/04/19 06:00 05/04/19 06:00 Labs: Laboratory Last Values WBC 11.8 K/mm3 (4.5-11.0) H 05/04/19 06:00 RBC 4.02 M/mm3 (3.65-5.03) 05/04/19 06:00 Hgb 11.8 gm/dl (10.1-14.3) 05/04/19 06:00 Hct 35.6 % (30.3-42.9) 05/04/19 06:00 MCV 89 fl (79-97) 05/04/19 06:00 MCH 29 pg (28-32) 05/04/19 06:00 MCHC 33 % (30-34) 05/04/19 06:00 RDW 15.6 % (13.2-15.2) H 05/04/19 06:00 Plt Count 231 K/mm3 (140-440) 05/04/19 06:00 Lymph % (Auto) 4.9 % (13.4-35.0) L 05/02/19 11:39 [place] % (Auto) 5.5 % (0.0-7.3) 05/02/19 11:39 Eos % (Auto) 0.0 % (0.0-4.3) 05/02/19 11:39 Baso % (Auto) 0.1 % (0.0-1.8) 05/02/19 11:39 Lymph # 0.8 K/mm3 (1.2-5.4) L 05/02/19 11:39 [place] # 0.9 K/mm3 (0.0-0.8) H 05/02/19 11:39 Eos # 0.0 K/mm3 (0.0-0.4) 05/02/19 11:39 Baso # 0.0 K/mm3 (0.0-0.1) 05/02/19 11:39 Seg Neutrophils % 89.5 % (40.0-70.0) H 05/02/19 11:39 Seg Neutrophils # 14.1 K/mm3 (1.8-7.7) H 05/02/19 11:39 PT 13.1 Sec. (12.2-14.9) 05/02/19 11:39 INR 1.02 (0.87-1.13) 05/02/19 11:39 APTT 26.9 Sec. (24.2-36.6) 05/02/19 11:39 D-Dimer 656.64 ng/mlDDU (0-234) H 05/02/19 11:39 POC ABG pH 7.441 (7.35-7.45) 05/02/19 14:23 POC ABG pCO2 42.6 (35-45) 05/02/19 14:23 POC ABG pO2 55 (80-105) L 05/02/19 14:23 POC ABG HCO3 29.0 (22-26 mml/L) 05/02/19 14:23 POC ABG Total CO2 30 (23-27mmol/L) 05/02/19 14:23 POC ABG O2 Sat 89 05/02/19 14:23 POC ABG Base Excess 5 ((-2) - (+3)mmol/L) 05/02/19 14:23 FiO2 28 % 05/02/19 14:23 Sodium 137 mmol/L (137-145) 05/04/19 06:00 Potassium 4.4 mmol/L (3.6-5.0) 05/04/19 06:00 Chloride 96.1 mmol/L (98-107) L 05/04/19 06:00 Carbon Dioxide 25 mmol/L (22-30) 05/04/19 06:00 Anion Gap 20 mmol/L 05/04/19 06:00 BUN 25 mg/dL (7-17) H 05/04/19 06:00 Creatinine 0.9 mg/dL (0.7-1.2) 05/04/19 06:00 Estimated GFR > 60 ml/min 05/04/19 06:00 BUN/Creatinine Ratio 28 % 05/04/19 06:00 Glucose 439 mg/dL (65-100) H 05/04/19 06:00 POC Glucose 398 (70-105) H 05/03/19 21:43 Lactic Acid 1.50 mmol/L (0.7-2.0) 05/02/19 18:34 Calcium 8.2 mg/dL (8.4-10.2) L 05/04/19 06:00 Magnesium 1.50 mg/dL (1.7-2.3) L 05/02/19 11:39 Total Bilirubin 1.30 mg/dL (0.1-1.2) H 05/02/19 11:39 AST 14 units/L (5-40) 05/02/19 11:39 ALT 21 units/L (7-56) 05/02/19 11:39 Alkaline Phosphatase 83 units/L (35-129) 05/02/19 11:39 Total Creatine Kinase 333 units/L (30-135) H 05/02/19 11:39 CK-MB (CK-2) 1.6 ng/mL (0.0-4.0) 05/02/19 11:39 CK-MB (CK-2) Rel Index 0.4 (0-4) 05/02/19 11:39 Troponin T < 0.010 ng/mL (0.00-0.029) 05/02/19 11:39 NT-Pro-B Natriuret Pep 313.7 pg/mL (0-900) 05/02/19 11:39 Total Protein 7.3 g/dL (6.3-8.2) 05/02/19 11:39 Albumin 3.7 g/dL (3.9-5) L 05/02/19 11:39 Albumin/Globulin Ratio 1.0 % 05/02/19 11:39 Urine Color Straw (Yellow) 05/02/19 12:06 Urine Turbidity Clear (Clear) 05/02/19 12:06 Urine pH 5.0 (5.0-7.0) 05/02/19 12:06 Ur Specific [place] 1.014 (1.003-1.030) 05/02/19 12:06 Urine Protein <15 mg/dl mg/dL (Negative) 05/02/19 12:06 Urine Glucose (UA) >=500 mg/dL (Negative) 05/02/19 12:06 Urine Ketones Tr mg/dL (Negative) 05/02/19 12:06 Urine Blood Sm (Negative) 05/02/19 12:06 Urine Nitrite Neg (Negative) 05/02/19 12:06 Urine Bilirubin Neg (Negative) 05/02/19 12:06 Urine Urobilinogen < 2.0 mg/dL (<2.0) 05/02/19 12:06 Ur Leukocyte Esterase Mod (Negative) 05/02/19 12:06 Urine WBC (Auto) 36.0 /HPF (0.0-6.0) H 05/02/19 12:06 Urine RBC (Auto) 4.0 /HPF (0.0-6.0) 05/02/19 12:06 U Epithel Cells (Auto) 1.0 /HPF (0-13.0) 05/02/19 12:06 Urine WBC Clumps 3+ /HPF 05/02/19 12:06 Active Medications - Current Medications Current Medications: Generic Name Dose Route Start Last Admin Trade Name Freq PRN Reason Stop Dose Admin Albuterol/Ipratropium 1 ampul 05/03/19 08:00 05/03/19 20:32 Duoneb *Not For Prn Use* IH 1 ampul QIDRT WILIAN Administration Arformoterol Tartrate 15 mcg 05/03/19 08:00 05/03/19 20:32 Brovana Nebu IH 15 mcg Q12HRT WILIAN Administration Budesonide 0.5 mg 05/03/19 08:00 05/03/19 20:32 Pulmicort IH 0.5 mg Q12HRT WILIAN Administration Cyclobenzaprine HCl 10 mg 05/03/19 10:00 05/03/19 09:24 Flexeril PO 10 mg DAILY WILIAN Administration Enoxaparin Sodium 40 mg 05/03/19 22:00 05/03/19 21:48 Lovenox SUB-Q 40 mg QDAY@2200 WILIAN Administration Furosemide 40 mg 05/02/19 22:00 05/03/19 09:24 Lasix PO 40 mg QDAY WILIAN Administration Vancomycin HCl 1,500 mg/ 530 mls @ 333.333 mls/hr 05/03/19 02:00 05/04/19 0 1:44 Sodium Chloride IV 333.333 mls/hr Q12H WILIAN Administration Cefepime HCl 2 gm in 100 mls @ 200 mls/hr 05/02/19 22:00 05/04/19 05:58 Maxipime/Ns 2 Gm/100 Ml IV 200 mls/hr Q8HR WILIAN Administration Protocol Insulin Human Isoph/Insulin Regular 10 unit 05/03/19 17:00 05/04/19 08:15 Humulin 70/30 SUB-Q 10 unit BIDDIAB WILIAN Administration Insulin Human Lispro 0 unit 05/02/19 22:00 05/04/19 08:15 Humalog SUB-Q 8 unit ACHS WILIAN Administration Protocol Methylprednisolone Sodium Succinate 40 mg 05/03/19 07:00 05/04/19 05:58 Solu-Medrol IV 40 mg Q8HR WILIAN Administration Montelukast Sodium 10 mg 05/03/19 18:00 05/03/19 17:09 Singulair PO 10 mg QPM WILIAN Administration Potassium Chloride 10 meq 05/02/19 22:00 05/03/19 21:50 K-Dur PO 10 meq BID WILIAN Administration Pravastatin Sodium 10 mg 05/02/19 22:00 05/03/19 21:49 Pravachol PO 10 mg QHS WILIAN Administration Venlafaxine HCl 112.5 mg 05/02/19 22:00 05/03/19 09:24 Effexor PO 112.5 mg QDAY WILIAN Administration Zolpidem Tartrate 10 mg 05/02/19 22:03 05/03/19 21:48 Ambien PO 10 mg QHS PRN Administration Sleep
[2019-05-04] MEDS: EFFEXOR PO SCH (09:16)
[2019-05-04] MEDS: K-DUR PO SCH ×2 (09:16→22:30)
[2019-05-04] MEDS: FLEXERIL PO SCH (09:16)
[2019-05-04] MEDS: LASIX PO SCH (09:18)
[2019-05-04] MEDS: BROVANA NEBU IH SCH ×2 (09:18→19:21)
[2019-05-04] MEDS: DUONEB *Not for PRN Use IH SCH ×4 (09:18→19:22)
[2019-05-04] MEDS: PULMICORT IH SCH ×2 (09:18→19:22)
[2019-05-04] MEDS: SINGULAIR PO SCH (17:46)
[2019-05-04] MEDS: LOVENOX SUB-Q SCH (22:30)
[2019-05-04] MEDS: PRAVACHOL PO SCH (22:31)
[2019-05-04] MEDS: AMBIEN PO PRN (22:58)
--- NOTE | 2019-05-04 23:20 | Progress Note ---
Assessment and Plan Imp: 1. CAP 2. Acute respiratory failure, hypoxia 3. Sepsis 4. Obesity 5. Asthma exac. 6. Hx of PE Rec: 1. Already completed adequate atypical course with Biaxin; agree w/ current ABX; try to obtain sputum culture as she is coughing up purulent sputum 2. Solumedrol, Duonebs, Pulmicort 3. Wean off of O2 to keep sats 88% or > 4. Will need incentive spirometry 5. DVT PPx with Lovenox 6. Will need to f/u CXR to full resolution of infiltrates, but this could be done as an outpatient 1-2 weeks after d/c Plan of care reviewed w/ patient, she understands/agrees Subjective Date of service: 05/04/19 Principal diagnosis: Pneumonia Interval history: No events. SOB, chest pain, cough, sputum, wheezing all improving. Active Medications Albuterol/Ipratropium (Duoneb *Not For Prn Use*) 1 ampul IH QIDRT [facility] Last Admin: 05/04/19 19:22 Dose: 1 ampul Documented by: Arformoterol Tartrate (Brovana Nebu) 15 mcg IH Q12HRT [facility] Last Admin: 05/04/19 19:21 Dose: 15 mcg Documented by: Budesonide (Pulmicort) 0.5 mg IH Q12HRT [facility] Last Admin: 05/04/19 19:22 Dose: 0.5 mg Documented by: Cyclobenzaprine HCl (Flexeril) 10 mg PO DAILY [facility] Last Admin: 05/04/19 09:16 Dose: 10 mg Documented by: Enoxaparin Sodium (Lovenox) 40 mg SUB-Q QDAY@2200 [facility] Last Admin: 05/04/19 22:30 Dose: 40 mg Documented by: Furosemide (Lasix) 40 mg PO QDAY [facility] Last Admin: 05/04/19 09:18 Dose: 40 mg Documented by: Vancomycin HCl 1,500 mg/ (Sodium Chloride) 530 mls @ 333.333 mls/hr IV Q12H [facility] Last Admin: 05/04/19 14:36 Dose: 333.333 mls/hr Documented by: Cefepime HCl (Maxipime/Ns 2 Gm/100 Ml) 2 gm in 100 mls @ 200 mls/hr IV Q8HR [facility]; Protocol Last Admin: 05/04/19 22:29 Dose: 200 mls/hr Documented by: Insulin Human Isoph/Insulin Regular (Humulin 70/30) 20 unit SUB-Q BIDDIAB [facility] Last Admin: 05/04/19 18:19 Dose: 20 unit Documented by: Insulin Human Lispro (Humalog) 0 unit SUB-Q ACHS [facility]; Protocol Last Admin: 05/04/19 22:57 Dose: 10 unit Documented by: Methylprednisolone Sodium Succinate (Solu-Medrol) 40 mg IV Q12H [facility] Last Admin: 05/04/19 17:45 Dose: 40 mg Documented by: Montelukast Sodium (Singulair) 10 mg PO QPM [facility] Last Admin: 05/04/19 17:46 Dose: 10 mg Documented by: Potassium Chloride (K-Dur) 10 meq PO BID [facility] Last Admin: 05/04/19 22:30 Dose: 10 meq Documented by: Pravastatin Sodium (Pravachol) 10 mg PO QHS [facility] Last Admin: 05/04/19 22:31 Dose: 10 mg Documented by: Venlafaxine HCl (Effexor) 112.5 mg PO QDAY [facility] Last Admin: 05/04/19 09:16 Dose: 112.5 mg Documented by: Zolpidem Tartrate (Ambien) 10 mg PO QHS PRN PRN Reason: Sleep Last Admin: 05/04/19 22:58 Dose: 10 mg Documented by: Objective Vital Signs - 12hr 05/04/19 05/04/19 05/04/19 12:00 13:00 14:12 Temperature 97.0 F L 98.0 F Pulse Rate 89 83 89 Pulse Rate [ Anterior Bilateral Throughout] Pulse Rate [ 71 From Monitor] Respiratory 19 19 20 Rate Respiratory Rate [Anterior Bilateral Throughout] Blood Pressure 127/85 126/80 126/81 O2 Sat by Pulse 97 95 Oximetry 05/04/19 05/04/19 05/04/19 17:01 17:10 19:23 Temperature 97.8 F Pulse Rate 79 Pulse Rate [ 82 77 Anterior Bilateral Throughout] Pulse Rate [ From Monitor] Respiratory 18 Rate Respiratory 20 18 Rate [Anterior Bilateral Throughout] Blood Pressure 132/82 O2 Sat by Pulse 100 Oximetry 05/04/19 05/04/19 19:26 21:08 Temperature 98.0 F Pulse Rate Pulse Rate [ Anterior Bilateral Throughout] Pulse Rate [ From Monitor] Respiratory 16 Rate Respiratory Rate [Anterior Bilateral Throughout] Blood Pressure 133/75 O2 Sat by Pulse 94 Oximetry Constitutional: no acute distress, alert Eyes: non-icteric ENT: oropharynx moist Neck: supple Effort: normal Ascultation: Left: diminished breath sounds (base), Bilateral: wheezes, rhonchi Cardiovascular: regular rate and rhythm (no mrg) Gastrointestinal: normoactive bowel sounds, soft, non-tender, non-distended Integumentary: normal Extremities: no cyanosis, no edema, pink and warm Neurologic: normal mental status, non-focal exam, pupils equal and round, CN II- XII normal Psychiatric: mood appropriate, affect normal CBC and BMP: 05/04/19 06:00 05/04/19 06:00 ABG, PT/INR, D-dimer: ABG POC ABG pH 7.441 (7.35-7.45) 05/02/19 14:23 POC ABG pCO2 42.6 (35-45) 05/02/19 14:23 POC ABG pO2 55 (80-105) L 05/02/19 14:23 POC ABG HCO3 29.0 (22-26 mml/L) 05/02/19 14:23 POC ABG Total CO2 30 (23-27mmol/L) 05/02/19 14:23 POC ABG O2 Sat 89 05/02/19 14:23 PT/INR, D-dimer PT 13.1 Sec. (12.2-14.9) 05/02/19 11:39 INR 1.02 (0.87-1.13) 05/02/19 11:39 D-Dimer 656.64 ng/mlDDU (0-234) H 05/02/19 11:39 Abnormal lab findings: Abnormal Labs 05/02/19 05/02/19 05/02/19 11:39 11:39 11:39 WBC 15.7 H RDW 15.4 H Lymph % (Auto) 4.9 L Lymph # 0.8 L [place] # 0.9 H Seg Neutrophils % 89.5 H Seg Neutrophils # 14.1 H D-Dimer 656.64 H POC ABG pO2 Sodium 133 L Chloride 88.2 L BUN 23 H Glucose 309 H POC Glucose Hemoglobin A1c Lactic Acid Calcium Magnesium 1.50 L Total Bilirubin 1.30 H Total Creatine Kinase Albumin 3.7 L Urine WBC (Auto) 05/02/19 05/02/19 05/02/19 11:39 12:06 12:40 WBC RDW Lymph % (Auto) Lymph # [place] # Seg Neutrophils % Seg Neutrophils # D-Dimer POC ABG pO2 Sodium Chloride BUN Glucose POC Glucose Hemoglobin A1c Lactic Acid 2.20 H* Calcium Magnesium Total Bilirubin Total Creatine Kinase 333 H Albumin Urine WBC (Auto) 36.0 H 05/02/19 05/02/19 05/02/19 13:40 14:18 14:23 WBC RDW Lymph % (Auto) Lymph # [place] # Seg Neutrophils % Seg Neutrophils # D-Dimer POC ABG pO2 55 L Sodium Chloride BUN Glucose POC Glucose 322 H Hemoglobin A1c Lactic Acid 5.20 H* Calcium Magnesium Total Bilirubin Total Creatine Kinase Albumin Urine WBC (Auto) 05/02/19 05/02/19 05/03/19 15:16 23:39 00:18 WBC RDW Lymph % (Auto) Lymph # [place] # Seg Neutrophils % Seg Neutrophils # D-Dimer POC ABG pO2 Sodium Chloride BUN Glucose 495 H POC Glucose > 500 H Hemoglobin A1c Lactic Acid 3.70 H* Calcium Magnesium Total Bilirubin Total Creatine Kinase Albumin Urine WBC (Auto) 05/03/19 05/03/19 05/03/19 07:44 09:37 09:37 WBC 12.4 H RDW 15.7 H Lymph % (Auto) Lymph # [place] # Seg Neutrophils % Seg Neutrophils # D-Dimer POC ABG pO2 Sodium 133 L Chloride 92.3 L BUN 26 H Glucose 457 H POC Glucose 369 H Hemoglobin A1c Lactic Acid Calcium Magnesium Total Bilirubin Total Creatine Kinase Albumin Urine WBC (Auto) 05/03/19 05/03/19 05/03/19 11:03 16:42 21:43 WBC RDW Lymph % (Auto) Lymph # [place] # Seg Neutrophils % Seg Neutrophils # D-Dimer POC ABG pO2 Sodium Chloride BUN Glucose POC Glucose 389 H 326 H 398 H Hemoglobin A1c Lactic Acid Calcium Magnesium Total Bilirubin Total Creatine Kinase Albumin Urine WBC (Auto) 05/04/19 05/04/19 05/04/19 06:00 06:00 06:00 WBC 11.8 H RDW 15.6 H Lymph % (Auto) Lymph # [place] # Seg Neutrophils % Seg Neutrophils # D-Dimer POC ABG pO2 Sodium Chloride 96.1 L BUN 25 H Glucose 439 H POC Glucose Hemoglobin A1c 10.3 H Lactic Acid Calcium 8.2 L Magnesium Total Bilirubin Total Creatine Kinase Albumin Urine WBC (Auto) 05/04/19 05/04/19 05/04/19 08:06 12:11 16:13 WBC RDW Lymph % (Auto) Lymph # [place] # Seg Neutrophils % Seg Neutrophils # D-Dimer POC ABG pO2 Sodium Chloride BUN Glucose POC Glucose 446 H 426 H 370 H Hemoglobin A1c Lactic Acid Calcium Magnesium Total Bilirubin Total Creatine Kinase Albumin Urine WBC (Auto) 05/04/19 21:15 WBC RDW Lymph % (Auto) Lymph # [place] # Seg Neutrophils % Seg Neutrophils # D-Dimer POC ABG pO2 Sodium Chloride BUN Glucose POC Glucose 356 H Hemoglobin A1c Lactic Acid Calcium Magnesium Total Bilirubin Total Creatine Kinase Albumin Urine WBC (Auto) Chest x-ray: report reviewed, image reviewed CT scan - chest: report reviewed, image reviewed
[2019-05-05] MEDS: VANCOMYCIN 1,500 MG in NACL 0.9% 500 ML 500 ML IV SCH ×2 (02:25→16:52)
[2019-05-05 05:25] LABS: Hematocrit 36.4 % (30.3-42.9); Hemoglobin 12.1 gm/dl (10.1-14.3); Mean Corpuscular HGB Conc 33 % (30-34); Mean Corpuscular Volume 88 fl (79-97); Platelet Count 255 K/mm3 (140-440); Red Blood Count 4.12 M/mm3 (3.65-5.03); Red Cell Distribution Width 15.4 % (13.2-15.2)
[2019-05-05 05:45] LABS: BUN/Creatinine Ratio 30; Blood Urea Nitrogen 27 mg/dL (7-17); Hemolysis Index 2
[2019-05-05] MEDS: MAXIPIME/NS 2 GM/100 ML 2 GM/100 ML BAG IV SCH ×3 (07:27→21:18)
[2019-05-05] MEDS: SOLU-Medrol IV SCH ×3 (07:27→21:20)
[2019-05-05] MEDS: DUONEB *Not for PRN Use IH SCH ×3 (08:20→19:58)
[2019-05-05] MEDS: PULMICORT IH SCH ×2 (08:20→19:58)
[2019-05-05] MEDS: BROVANA NEBU IH SCH ×2 (08:20→19:59)
[2019-05-05] MEDS: HumaLOG SUB-Q SCH ×4 (08:39→22:00)
--- NOTE | 2019-05-05 08:48 | Progress Note ---
Assessment and Plan Assessment and plan: Sepsis due to pneumonia, UTI Cont Cefepime and vancomycin Acute respiratory failure due to pneumonia and asthma exacerbation suplemental Oxygen Pulmonology following Left lower lobe pneumonia. Was initially admitted to [facility], now on Medical floor Cefepime, Vanco Pulmonology following Diabetes mellitus type 2, uncontrolled Increase Novolin 70/30 to 26 Units bid Decrease solu-medrol dose Sliding scale Check a1C Asthma exacerbation Decrease dose of Solu-medrol iv Chest pain, atypical Due to cough from asthma, pneumonia Full code status History Interval history: Less shortness of breath Still coughing Less chest pain Hospitalist Physical - Physical exam Narrative exam: Gen: Not in acute distress, Lying in bed,obese HEENT: Normocephalic, atraumatic Neck: supple, no JVD Heart: S1 and S2 reg, no murmurs, rubs or gallop Lungs: Crackles left base, bilateral rhonchi, wheeze Abd: soft, non tender, non distended, normal BS, Ext: No edema, no clubbing, no cyanosis Neuro: Awake, alert, oriented X 3, no focal neurological signs - Constitutional Vitals: Temp Pulse Resp BP Pulse Ox 97.9 F 93 H 20 129/83 97 05/05/19 04:51 05/05/19 08:40 05/05/19 08:40 05/05/19 04:51 05/05/19 08:36 General appearance: Present: no acute distress, obese Results - Labs CBC & Chem 7: 05/05/19 04:33 05/05/19 04:33 Labs: Laboratory Last Values WBC 12.6 K/mm3 (4.5-11.0) H 05/05/19 04:33 RBC 4.12 M/mm3 (3.65-5.03) 05/05/19 04:33 Hgb 12.1 gm/dl (10.1-14.3) 05/05/19 04:33 Hct 36.4 % (30.3-42.9) 05/05/19 04:33 MCV 88 fl (79-97) 05/05/19 04:33 MCH 29 pg (28-32) 05/05/19 04:33 MCHC 33 % (30-34) 05/05/19 04:33 RDW 15.4 % (13.2-15.2) H 05/05/19 04:33 Plt Count 255 K/mm3 (140-440) 05/05/19 04:33 Lymph % (Auto) 4.9 % (13.4-35.0) L 05/02/19 11:39 [place] % (Auto) 5.5 % (0.0-7.3) 05/02/19 11:39 Eos % (Auto) 0.0 % (0.0-4.3) 05/02/19 11:39 Baso % (Auto) 0.1 % (0.0-1.8) 05/02/19 11:39 Lymph # 0.8 K/mm3 (1.2-5.4) L 05/02/19 11:39 [place] # 0.9 K/mm3 (0.0-0.8) H 05/02/19 11:39 Eos # 0.0 K/mm3 (0.0-0.4) 05/02/19 11:39 Baso # 0.0 K/mm3 (0.0-0.1) 05/02/19 11:39 Seg Neutrophils % 89.5 % (40.0-70.0) H 05/02/19 11:39 Seg Neutrophils # 14.1 K/mm3 (1.8-7.7) H 05/02/19 11:39 PT 13.1 Sec. (12.2-14.9) 05/02/19 11:39 INR 1.02 (0.87-1.13) 05/02/19 11:39 APTT 26.9 Sec. (24.2-36.6) 05/02/19 11:39 D-Dimer 656.64 ng/mlDDU (0-234) H 05/02/19 11:39 POC ABG pH 7.441 (7.35-7.45) 05/02/19 14:23 POC ABG pCO2 42.6 (35-45) 05/02/19 14:23 POC ABG pO2 55 (80-105) L 05/02/19 14:23 POC ABG HCO3 29.0 (22-26 mml/L) 05/02/19 14:23 POC ABG Total CO2 30 (23-27mmol/L) 05/02/19 14:23 POC ABG O2 Sat 89 05/02/19 14:23 POC ABG Base Excess 5 ((-2) - (+3)mmol/L) 05/02/19 14:23 FiO2 28 % 05/02/19 14:23 Sodium 137 mmol/L (137-145) 05/05/19 04:33 Potassium 3.9 mmol/L (3.6-5.0) 05/05/19 04:33 Chloride 96.8 mmol/L (98-107) L 05/05/19 04:33 Carbon Dioxide 27 mmol/L (22-30) 05/05/19 04:33 Anion Gap 17 mmol/L 05/05/19 04:33 BUN 27 mg/dL (7-17) H 05/05/19 04:33 Creatinine 0.9 mg/dL (0.7-1.2) 05/05/19 04:33 Estimated GFR > 60 ml/min 05/05/19 04:33 BUN/Creatinine Ratio 30 % 05/05/19 04:33 Glucose 309 mg/dL (65-100) H 05/05/19 04:33 POC Glucose 373 (70-105) H 05/05/19 07:37 Hemoglobin A1c 10.3 % (4-6) H 05/04/19 06:00 Lactic Acid 1.50 mmol/L (0.7-2.0) 05/02/19 18:34 Calcium 8.0 mg/dL (8.4-10.2) L 05/05/19 04:33 Magnesium 1.50 mg/dL (1.7-2.3) L 05/02/19 11:39 Total Bilirubin 1.30 mg/dL (0.1-1.2) H 05/02/19 11:39 AST 14 units/L (5-40) 05/02/19 11:39 ALT 21 units/L (7-56) 05/02/19 11:39 Alkaline Phosphatase 83 units/L (35-129) 05/02/19 11:39 Total Creatine Kinase 333 units/L (30-135) H 05/02/19 11:39 CK-MB (CK-2) 1.6 ng/mL (0.0-4.0) 05/02/19 11:39 CK-MB (CK-2) Rel Index 0.4 (0-4) 05/02/19 11:39 Troponin T < 0.010 ng/mL (0.00-0.029) 05/02/19 11:39 NT-Pro-B Natriuret Pep 313.7 pg/mL (0-900) 05/02/19 11:39 Total Protein 7.3 g/dL (6.3-8.2) 05/02/19 11:39 Albumin 3.7 g/dL (3.9-5) L 05/02/19 11:39 Albumin/Globulin Ratio 1.0 % 05/02/19 11:39 Urine Color Straw (Yellow) 05/02/19 12:06 Urine Turbidity Clear (Clear) 05/02/19 12:06 Urine pH 5.0 (5.0-7.0) 05/02/19 12:06 Ur Specific [place] 1.014 (1.003-1.030) 05/02/19 12:06 Urine Protein <15 mg/dl mg/dL (Negative) 05/02/19 12:06 Urine Glucose (UA) >=500 mg/dL (Negative) 05/02/19 12:06 Urine Ketones Tr mg/dL (Negative) 05/02/19 12:06 Urine Blood Sm (Negative) 05/02/19 12:06 Urine Nitrite Neg (Negative) 05/02/19 12:06 Urine Bilirubin Neg (Negative) 05/02/19 12:06 Urine Urobilinogen < 2.0 mg/dL (<2.0) 05/02/19 12:06 Ur Leukocyte Esterase Mod (Negative) 05/02/19 12:06 Urine WBC (Auto) 36.0 /HPF (0.0-6.0) H 05/02/19 12:06 Urine RBC (Auto) 4.0 /HPF (0.0-6.0) 05/02/19 12:06 U Epithel Cells (Auto) 1.0 /HPF (0-13.0) 05/02/19 12:06 Urine WBC Clumps 3+ /HPF 05/02/19 12:06 Active Medications - Current Medications Current Medications: Generic Name Dose Route Start Last Admin Trade Name Freq PRN Reason Stop Dose Admin Albuterol/Ipratropium 1 ampul 05/05/19 14:00 Duoneb *Not For Prn Use* IH TIDRT WILIAN Arformoterol Tartrate 15 mcg 05/03/19 08:00 05/05/19 08:20 Brovana Nebu IH 15 mcg Q12HRT WILIAN Administration Budesonide 0.5 mg 05/03/19 08:00 05/05/19 08:20 Pulmicort IH 0.5 mg Q12HRT WILIAN Administration Cyclobenzaprine HCl 10 mg 05/03/19 10:00 05/04/19 09:16 Flexeril PO 10 mg DAILY WILIAN Administration Enoxaparin Sodium 40 mg 05/03/19 22:00 05/04/19 22:30 Lovenox SUB-Q 40 mg QDAY@2200 WILIAN Administration Furosemide 40 mg 05/02/19 22:00 05/04/19 09:18 Lasix PO 40 mg QDAY WILIAN Administration Vancomycin HCl 1,500 mg/ 530 mls @ 333.333 mls/hr 05/03/19 02:00 05/05/19 02:25 Sodium Chloride IV 333.333 mls/hr Q12H WILIAN Administration Cefepime HCl 2 gm in 100 mls @ 200 mls/hr 05/02/19 22:00 05/05/19 07:27 Maxipime/Ns 2 Gm/100 Ml IV 200 mls/hr Q8HR WILIAN Administration Protocol Insulin Human Isoph/Insulin Regular 26 unit 05/05/19 08:01 Humulin 70/30 SUB-Q BIDDIAB WILIAN Insulin Human Lispro 0 unit 05/02/19 22:00 05/05/19 08:39 Humalog SUB-Q 10 unit ACHS WILIAN Administration Protocol Methylprednisolone Sodium Succinate 20 mg 05/05/19 10:00 Solu-Medrol IV Q12HR WILIAN Montelukast Sodium 10 mg 05/03/19 18:00 05/04/19 17:46 Singulair PO 10 mg QPM WILIAN Administration Potassium Chloride 10 meq 05/02/19 22:00 05/04/19 22:30 K-Dur PO 10 meq BID WILIAN Administration Pravastatin Sodium 10 mg 05/02/19 22:00 05/04/19 22:31 Pravachol PO 10 mg QHS WILIAN Administration Venlafaxine HCl 112.5 mg 05/02/19 22:00 05/04/19 09:16 Effexor PO 112.5 mg QDAY WILIAN Administration Zolpidem Tartrate 10 mg 05/02/19 22:03 05/04/19 22:58 Ambien PO 10 mg QHS PRN Administration Sleep
[2019-05-05] MEDS: EFFEXOR PO SCH (09:57)
[2019-05-05] MEDS: LASIX PO SCH (09:57)
[2019-05-05] MEDS: K-DUR PO SCH ×2 (09:57→21:21)
[2019-05-05] MEDS: FLEXERIL PO SCH (09:57)
[2019-05-05] MEDS ORDERED: TYLENOL PO PRN (13:16)
[2019-05-05] MEDS: TESSALON PERLES PO SCH ×2 (14:02→21:23)
[2019-05-05] MEDS: NACL 0.9% 1000 ML 1,000 ML IV SCH (16:54)
[2019-05-05] MEDS: SINGULAIR PO SCH (19:16)
--- NOTE | 2019-05-05 19:57 | Progress Note ---
Assessment and Plan Imp: 1. CAP 2. Acute respiratory failure, hypoxia 3. Sepsis 4. Obesity 5. Asthma exac. 6. Hx of PE Rec: 1. Already completed adequate atypical course with Biaxin; agree w/ current ABX 2. Solumedrol -> agree w/ tapering, Duonebs, Pulmicort 3. Wean off of O2 to keep sats 88% or > 4. Will need incentive spirometry 5. DVT PPx with Lovenox 6. Will need to f/u CXR to full resolution of infiltrates, but this could be done as an outpatient 1-2 weeks after d/c -> repeat quick CXR in AM Plan of care reviewed w/ patient, she understands/agrees Subjective Date of service: 05/05/19 Principal diagnosis: Pneumonia Interval history: No events. SOB and wheezing better. Cough and sputum improving but still persist. Having abdominal soreness from coughing. Active Medications Acetaminophen (Tylenol) 650 mg PO Q6H PRN PRN Reason: Pain, Mild (1-3) Last Admin: 05/05/19 14:02 Dose: 650 mg Documented by: Albuterol/Ipratropium (Duoneb *Not For Prn Use*) 1 ampul IH TIDRT [facility] Last Admin: 05/05/19 14:45 Dose: 1 ampul Documented by: Arformoterol Tartrate (Brovana Nebu) 15 mcg IH Q12HRT [facility] Last Admin: 05/05/19 08:20 Dose: 15 mcg Documented by: Benzonatate (Tessalon Perles) 100 mg PO Q8HR [facility] Last Admin: 05/05/19 14:02 Dose: 100 mg Documented by: Budesonide (Pulmicort) 0.5 mg IH Q12HRT [facility] Last Admin: 05/05/19 08:20 Dose: 0.5 mg Documented by: Cyclobenzaprine HCl (Flexeril) 10 mg PO DAILY [facility] Last Admin: 05/05/19 09:57 Dose: 10 mg Documented by: Enoxaparin Sodium (Lovenox) 40 mg SUB-Q QDAY@2200 [facility] Last Admin: 05/04/19 22:30 Dose: 40 mg Documented by: Cefepime HCl (Maxipime/Ns 2 Gm/100 Ml) 2 gm in 100 mls @ 200 mls/hr IV Q8HR [facility]; Protocol Last Admin: 05/05/19 14:04 Dose: 200 mls/hr Documented by: Sodium Chloride (Nacl 0.9% 1000 Ml) 1,000 mls @ 75 mls/hr IV DIRECT [facility] Last Admin: 05/05/19 16:54 Dose: 75 mls/hr Documented by: Insulin Human Isoph/Insulin Regular (Humulin 70/30) 26 unit SUB-Q BIDDIAB [facility] Last Admin: 05/05/19 19:16 Dose: 26 unit Documented by: Insulin Human Lispro (Humalog) 0 unit SUB-Q ACHS [facility]; Protocol Last Admin: 05/05/19 19:08 Dose: 10 unit Documented by: Methylprednisolone Sodium Succinate (Solu-Medrol) 20 mg IV Q12HR [facility] Last Admin: 05/05/19 09:56 Dose: 20 mg Documented by: Montelukast Sodium (Singulair) 10 mg PO QPM [facility] Last Admin: 05/05/19 19:16 Dose: 10 mg Documented by: Potassium Chloride (K-Dur) 10 meq PO BID [facility] Last Admin: 05/05/19 09:57 Dose: 10 meq Documented by: Pravastatin Sodium (Pravachol) 10 mg PO QHS [facility] Last Admin: 05/04/19 22:31 Dose: 10 mg Documented by: Venlafaxine HCl (Effexor) 112.5 mg PO QDAY [facility] Last Admin: 05/05/19 09:57 Dose: 112.5 mg Documented by: Zolpidem Tartrate (Ambien) 10 mg PO QHS PRN PRN Reason: Sleep Last Admin: 05/04/19 22:58 Dose: 10 mg Documented by: Objective Vital Signs - 12hr 05/05/19 05/05/19 05/05/19 08:20 08:36 08:40 Temperature Pulse Rate Pulse Rate [ 93 H Anterior Bilateral Throughout] Pulse Rate [ 92 H Posterior Bilateral Lower Lobe] Respiratory Rate Respiratory 20 Rate [Anterior Bilateral Throughout] Respiratory 20 Rate [Posterior Bilateral Lower Lobe] Blood Pressure O2 Sat by Pulse 97 97 Oximetry 05/05/19 05/05/19 05/05/19 09:55 12:40 18:10 Temperature 98.7 F 98.2 F Pulse Rate 99 H 98 H Pulse Rate [ Anterior Bilateral Throughout] Pulse Rate [ Posterior Bilateral Lower Lobe] Respiratory 20 20 Rate Respiratory Rate [Anterior Bilateral Throughout] Respiratory Rate [Posterior Bilateral Lower Lobe] Blood Pressure 129/80 138/78 143/82 O2 Sat by Pulse 94 94 Oximetry Constitutional: no acute distress, alert Eyes: non-icteric ENT: oropharynx moist Neck: supple Effort: normal Ascultation: Bilateral: clear (poor inspiratory effort) Cardiovascular: regular rate and rhythm (no mrg) Gastrointestinal: normoactive bowel sounds, soft, non-tender, non-distended Integumentary: normal Extremities: no cyanosis, no edema, pink and warm Neurologic: normal mental status, non-focal exam, pupils equal and round, CN II-XII normal Psychiatric: mood appropriate, affect normal CBC and BMP: 05/05/19 04:33 05/05/19 04:33 ABG, PT/INR, D-dimer: ABG POC ABG pH 7.441 (7.35-7.45) 05/02/19 14:23 POC ABG pCO2 42.6 (35-45) 05/02/19 14:23 POC ABG pO2 55 (80-105) L 05/02/19 14:23 POC ABG HCO3 29.0 (22-26 mml/L) 05/02/19 14:23 POC ABG Total CO2 30 (23-27mmol/L) 05/02/19 14:23 POC ABG O2 Sat 89 05/02/19 14:23 PT/INR, D-dimer PT 13.1 Sec. (12.2-14.9) 05/02/19 11:39 INR 1.02 (0.87-1.13) 05/02/19 11:39 D-Dimer 656.64 ng/mlDDU (0-234) H 05/02/19 11:39 Abnormal lab findings: Abnormal Labs 05/02/19 05/02/19 05/02/19 11:39 11:39 11:39 WBC 15.7 H RDW 15.4 H Lymph % (Auto) 4.9 L Lymph # 0.8 L [place] # 0.9 H Seg Neutrophils % 89.5 H Seg Neutrophils # 14.1 H D-Dimer 656.64 H POC ABG pO2 Sodium 133 L Chloride 88.2 L BUN 23 H Glucose 309 H POC Glucose Hemoglobin A1c Lactic Acid Calcium Magnesium 1.50 L Total Bilirubin 1.30 H Total Creatine Kinase Albumin 3.7 L Urine WBC (Auto) Vancomycin Trough 05/02/19 05/02/19 05/02/19 11:39 12:06 12:40 WBC RDW Lymph % (Auto) Lymph # [place] # Seg Neutrophils % Seg Neutrophils # D-Dimer POC ABG pO2 Sodium Chloride BUN Glucose POC Glucose Hemoglobin A1c Lactic Acid 2.20 H* Calcium Magnesium Total Bilirubin Total Creatine Kinase 333 H Albumin Urine WBC (Auto) 36.0 H Vancomycin Trough 05/02/19 05/02/19 05/02/19 13:40 14:18 14:23 WBC RDW Lymph % (Auto) Lymph # [place] # Seg Neutrophils % Seg Neutrophils # D-Dimer POC ABG pO2 55 L Sodium Chloride BUN Glucose POC Glucose 322 H Hemoglobin A1c Lactic Acid 5.20 H* Calcium Magnesium Total Bilirubin Total Creatine Kinase Albumin Urine WBC (Auto) Vancomycin Trough 05/02/19 05/02/19 05/03/19 15:16 23:39 00:18 WBC RDW Lymph % (Auto) Lymph # [place] # Seg Neutrophils % Seg Neutrophils # D-Dimer POC ABG pO2 Sodium Chloride BUN Glucose 495 H POC Glucose > 500 H Hemoglobin A1c Lactic Acid 3.70 H* Calcium Magnesium Total Bilirubin Total Creatine Kinase Albumin Urine WBC (Auto) Vancomycin Trough 05/03/19 05/03/19 05/03/19 07:44 09:37 09:37 WBC 12.4 H RDW 15.7 H Lymph % (Auto) Lymph # [place] # Seg Neutrophils % Seg Neutrophils # D-Dimer POC ABG pO2 Sodium 133 L Chloride 92.3 L BUN 26 H Glucose 457 H POC Glucose 369 H Hemoglobin A1c Lactic Acid Calcium Magnesium Total Bilirubin Total Creatine Kinase Albumin Urine WBC (Auto) Vancomycin Trough 05/03/19 05/03/19 05/03/19 11:03 16:42 21:43 WBC RDW Lymph % (Auto) Lymph # [place] # Seg Neutrophils % Seg Neutrophils # D-Dimer POC ABG pO2 Sodium Chloride BUN Glucose POC Glucose 389 H 326 H 398 H Hemoglobin A1c Lactic Acid Calcium Magnesium Total Bilirubin Total Creatine Kinase Albumin Urine WBC (Auto) Vancomycin Trough 05/04/19 05/04/19 05/04/19 06:00 06:00 06:00 WBC 11.8 H RDW 15.6 H Lymph % (Auto) Lymph # [place] # Seg Neutrophils % Seg Neutrophils # D-Dimer POC ABG pO2 Sodium Chloride 96.1 L BUN 25 H Glucose 439 H POC Glucose Hemoglobin A1c 10.3 H Lactic Acid Calcium 8.2 L Magnesium Total Bilirubin Total Creatine Kinase Albumin Urine WBC (Auto) Vancomycin Trough 05/04/19 05/04/19 05/04/19 08:06 12:11 16:13 WBC RDW Lymph % (Auto) Lymph # [place] # Seg Neutrophils % Seg Neutrophils # D-Dimer POC ABG pO2 Sodium Chloride BUN Glucose POC Glucose 446 H 426 H 370 H Hemoglobin A1c Lactic Acid Calcium Magnesium Total Bilirubin Total Creatine Kinase Albumin Urine WBC (Auto) Vancomycin Trough 05/04/19 05/05/19 05/05/19 21:15 04:33 04:33 WBC 12.6 H RDW 15.4 H Lymph % (Auto) Lymph # [place] # Seg Neutrophils % Seg Neutrophils # D-Dimer POC ABG pO2 Sodium Chloride 96.8 L BUN 27 H Glucose 309 H POC Glucose 356 H Hemoglobin A1c Lactic Acid Calcium 8.0 L Magnesium Total Bilirubin Total Creatine Kinase Albumin Urine WBC (Auto) Vancomycin Trough 05/05/19 05/05/19 05/05/19 07:37 11:51 13:06 WBC RDW Lymph % (Auto) Lymph # [place] # Seg Neutrophils % Seg Neutrophils # D-Dimer POC ABG pO2 Sodium Chloride BUN Glucose POC Glucose 373 H 362 H Hemoglobin A1c Lactic Acid Calcium Magnesium Total Bilirubin Total Creatine Kinase Albumin Urine WBC (Auto) Vancomycin Trough 31.0 H 05/05/19 17:02 WBC RDW Lymph % (Auto) Lymph # [place] # Seg Neutrophils % Seg Neutrophils # D-Dimer POC ABG pO2 Sodium Chloride BUN Glucose POC Glucose 413 H Hemoglobin A1c Lactic Acid Calcium Magnesium Total Bilirubin Total Creatine Kinase Albumin Urine WBC (Auto) Vancomycin Trough Chest x-ray: report reviewed, image reviewed
[2019-05-05] MEDS: LOVENOX SUB-Q SCH (21:20)
[2019-05-05] MEDS: PRAVACHOL PO SCH (21:21)
[2019-05-05] MEDS: AMBIEN PO PRN (21:31)
[2019-05-06] MEDS: MAXIPIME/NS 2 GM/100 ML 2 GM/100 ML BAG IV SCH ×2 (06:03→13:28)
[2019-05-06] MEDS: TESSALON PERLES PO SCH ×3 (06:04→23:55)
--- NOTE | 2019-05-06 09:14 | XRay Report ---
CHEST 1 VIEW INDICATION: Pneumonia. COMPARISON: 05/02/2019 FINDINGS: Support devices: None. Heart: Within normal limits. Lungs/Pleura: The lingular opacity has resolved since the previous exam. The lungs are generally henri r although the right hemidiaphragm appears moderately elevated. No pleural effusion or pneumothorax. Additional findings: None. IMPRESSION: Left lung infiltration is essentially resolved since exam 4 days ago. Elevated right hemidiaphragm. Signer Name: Vladimir Jin Jr, MD Signed: 05/06/2019 9:10 AM Workstation Name: [id number]
[2019-05-06] MEDS: HumaLOG SUB-Q SCH ×4 (09:27→23:55)
[2019-05-06] MEDS: EFFEXOR PO SCH (09:30)
[2019-05-06] MEDS: SOLU-Medrol IV SCH (09:31)
[2019-05-06] MEDS: K-DUR PO SCH ×2 (09:31→23:55)
[2019-05-06] MEDS: FLEXERIL PO SCH (09:31)
[2019-05-06] MEDS: DUONEB *Not for PRN Use IH SCH ×3 (10:13→21:54)
[2019-05-06] MEDS: BROVANA NEBU IH SCH ×2 (10:13→21:54)
[2019-05-06] MEDS: PULMICORT IH SCH ×2 (10:13→21:54)
[2019-05-06] MEDS: NACL 0.9% 1000 ML 1,000 ML IV SCH (11:24)
--- NOTE | 2019-05-06 15:48 | Progress Note ---
Assessment and Plan Imp: 1. CAP 2. Acute respiratory failure, hypoxia 3. Sepsis 4. Obesity 5. Asthma exac. 6. Hx of PE Rec: 1. Cont. current IV ABX day #5; probably can finish 3-5 more days of Levaquin at d/c 2. Change to Prednisone in AM, taper at d/c; Duonebs, Pulmicort 3. Wean off of O2 to keep sats 88% or > 4. Will need incentive spirometry 5. DVT PPx with Lovenox 6. CXR shows resolution of LLL density 7. Likely can go home 05/07/19 w/ office f/u Plan of care reviewed w/ patient, she understands/agrees Subjective Date of service: 05/06/19 Principal diagnosis: Pneumonia Interval history: No events. SOB and wheezing better. Cough and sputum improving. Feels better today and in better spirits. Active Medications Acetaminophen (Tylenol) 650 mg PO Q6H PRN PRN Reason: Pain, Mild (1-3) Last Admin: 05/05/19 14:02 Dose: 650 mg Documented by: Albuterol/Ipratropium (Duoneb *Not For Prn Use*) 1 ampul IH TIDRT [facility] Last Admin: 05/06/19 15:15 Dose: 1 ampul Documented by: Arformoterol Tartrate (Brovana Nebu) 15 mcg IH Q12HRT [facility] Last Admin: 05/06/19 10:13 Dose: 15 mcg Documented by: Benzonatate (Tessalon Perles) 100 mg PO Q8HR [facility] Last Admin: 05/06/19 13:28 Dose: 100 mg Documented by: Budesonide (Pulmicort) 0.5 mg IH Q12HRT [facility] Last Admin: 05/06/19 10:13 Dose: 0.5 mg Documented by: Cyclobenzaprine HCl (Flexeril) 10 mg PO DAILY [facility] Last Admin: 05/06/19 09:31 Dose: 10 mg Documented by: Enoxaparin Sodium (Lovenox) 40 mg SUB-Q QDAY@2200 [facility] Last Admin: 05/05/19 21:20 Dose: 40 mg Documented by: Cefepime HCl (Maxipime/Ns 2 Gm/100 Ml) 2 gm in 100 mls @ 200 mls/hr IV Q8HR [facility]; Protocol Last Admin: 05/06/19 13:28 Dose: 200 mls/hr Documented by: Sodium Chloride (Nacl 0.9% 1000 Ml) 1,000 mls @ 75 mls/hr IV DIRECT [facility] Last Admin: 05/06/19 11:24 Dose: 75 mls/hr Documented by: Vancomycin HCl 1,250 mg/ (Sodium Chloride) 275 mls @ 166.667 mls/hr IV Q18H [facility] Insulin Human Isoph/Insulin Regular (Humulin 70/30) 30 unit SUB-Q BIDDIAB [facility] Last Admin: 05/06/19 09:28 Dose: 30 unit Documented by: Insulin Human Lispro (Humalog) 0 unit SUB-Q ACHS [facility]; Protocol Last Admin: 05/06/19 13:27 Dose: 6 unit Documented by: Montelukast Sodium (Singulair) 10 mg PO QPM [facility] Last Admin: 05/05/19 19:16 Dose: 10 mg Documented by: Potassium Chloride (K-Dur) 10 meq PO BID [facility] Last Admin: 05/06/19 09:31 Dose: 10 meq Documented by: Pravastatin Sodium (Pravachol) 10 mg PO QHS [facility] Last Admin: 05/05/19 21:21 Dose: 10 mg Documented by: Prednisone (Deltasone) 40 mg PO QDAY [facility] Venlafaxine HCl (Effexor) 112.5 mg PO QDAY [facility] Last Admin: 05/06/19 09:30 Dose: 112.5 mg Documented by: Zolpidem Tartrate (Ambien) 10 mg PO QHS PRN PRN Reason: Sleep Last Admin: 05/05/19 21:31 Dose: 10 mg Documented by: Objective Vital Signs - 12hr 05/06/19 05/06/19 05/06/19 05:28 10:14 10:17 Temperature 97.6 F Pulse Rate Pulse Rate [ 76 Anterior Bilateral Throughout] Pulse Rate [ 76 Posterior Bilateral Lower Lobe] Respiratory 20 Rate Respiratory 18 Rate [Anterior Bilateral Throughout] Respiratory 18 Rate [Posterior Bilateral Lower Lobe] Blood Pressure 106/71 O2 Sat by Pulse 95 Oximetry 05/06/19 05/06/19 11:52 14:00 Temperature 98.7 F Pulse Rate 79 Pulse Rate [ 94 H Anterior Bilateral Throughout] Pulse Rate [ 98 H Posterior Bilateral Lower Lobe] Respiratory 24 Rate Respiratory 18 Rate [Anterior Bilateral Throughout] Respiratory 14 Rate [Posterior Bilateral Lower Lobe] Blood Pressure 114/71 O2 Sat by Pulse 94 Oximetry Constitutional: no acute distress, alert Eyes: non-icteric ENT: oropharynx moist Neck: supple Effort: normal Ascultation: Bilateral: clear (poor inspiratory effort) Cardiovascular: regular rate and rhythm (no mrg) Gastrointestinal: normoactive bowel sounds, soft, non-tender, non-distended Integumentary: normal Extremities: no cyanosis, no edema, pink and warm Neurologic: normal mental status, non-focal exam, pupils equal and round, CN II- XII normal Psychiatric: mood appropriate, affect normal CBC and BMP: 05/05/19 04:33 05/05/19 04:33 ABG, PT/INR, D-dimer: ABG POC ABG pH 7.441 (7.35-7.45) 05/02/19 14:23 POC ABG pCO2 42.6 (35-45) 05/02/19 14:23 POC ABG pO2 55 (80-105) L 05/02/19 14:23 POC ABG HCO3 29.0 (22-26 mml/L) 05/02/19 14:23 POC ABG Total CO2 30 (23-27mmol/L) 05/02/19 14:23 POC ABG O2 Sat 89 05/02/19 14:23 PT/INR, D-dimer PT 13.1 Sec. (12.2-14.9) 05/02/19 11:39 INR 1.02 (0.87-1.13) 05/02/19 11:39 D-Dimer 656.64 ng/mlDDU (0-234) H 05/02/19 11:39 Abnormal lab findings: Abnormal Labs 05/02/19 05/02/19 05/02/19 11:39 11:39 11:39 WBC 15.7 H RDW 15.4 H Lymph % (Auto) 4.9 L Lymph # 0.8 L [place] # 0.9 H Seg Neutrophils % 89.5 H Seg Neutrophils # 14.1 H D-Dimer 656.64 H POC ABG pO2 Sodium 133 L Chloride 88.2 L BUN 23 H Glucose 309 H POC Glucose Hemoglobin A1c Lactic Acid Calcium Magnesium 1.50 L Total Bilirubin 1.30 H Total Creatine Kinase Albumin 3.7 L Urine WBC (Auto) Vancomycin Trough 05/02/19 05/02/19 05/02/19 11:39 12:06 12:40 WBC RDW Lymph % (Auto) Lymph # [place] # Seg Neutrophils % Seg Neutrophils # D-Dimer POC ABG pO2 Sodium Chloride BUN Glucose POC Glucose Hemoglobin A1c Lactic Acid 2.20 H* Calcium Magnesium Total Bilirubin Total Creatine Kinase 333 H Albumin Urine WBC (Auto) 36.0 H Vancomycin Trough 05/02/19 05/02/19 05/02/19 13:40 14:18 14:23 WBC RDW Lymph % (Auto) Lymph # [place] # Seg Neutrophils % Seg Neutrophils # D-Dimer POC ABG pO2 55 L Sodium Chloride BUN Glucose POC Glucose 322 H Hemoglobin A1c Lactic Acid 5.20 H* Calcium Magnesium Total Bilirubin Total Creatine Kinase Albumin Urine WBC (Auto) Vancomycin Trough 05/02/19 05/02/19 05/03/19 15:16 23:39 00:18 WBC RDW Lymph % (Auto) Lymph # [place] # Seg Neutrophils % Seg Neutrophils # D-Dimer POC ABG pO2 Sodium Chloride BUN Glucose 495 H POC Glucose > 500 H Hemoglobin A1c Lactic Acid 3.70 H* Calcium Magnesium Total Bilirubin Total Creatine Kinase Albumin Urine WBC (Auto) Vancomycin Trough 05/03/19 05/03/19 05/03/19 07:44 09:37 09:37 WBC 12.4 H RDW 15.7 H Lymph % (Auto) Lymph # [place] # Seg Neutrophils % Seg Neutrophils # D-Dimer POC ABG pO2 Sodium 133 L Chloride 92.3 L BUN 26 H Glucose 457 H POC Glucose 369 H Hemoglobin A1c Lactic Acid Calcium Magnesium Total Bilirubin Total Creatine Kinase Albumin Urine WBC (Auto) Vancomycin Trough 05/03/19 05/03/19 05/03/19 11:03 16:42 21:43 WBC RDW Lymph % (Auto) Lymph # [place] # Seg Neutrophils % Seg Neutrophils # D-Dimer POC ABG pO2 Sodium Chloride BUN Glucose POC Glucose 389 H 326 H 398 H Hemoglobin A1c Lactic Acid Calcium Magnesium Total Bilirubin Total Creatine Kinase Albumin Urine WBC (Auto) Vancomycin Trough 05/04/19 05/04/19 05/04/19 06:00 06:00 06:00 WBC 11.8 H RDW 15.6 H Lymph % (Auto) Lymph # [place] # Seg Neutrophils % Seg Neutrophils # D-Dimer POC ABG pO2 Sodium Chloride 96.1 L BUN 25 H Glucose 439 H POC Glucose Hemoglobin A1c 10.3 H Lactic Acid Calcium 8.2 L Magnesium Total Bilirubin Total Creatine Kinase Albumin Urine WBC (Auto) Vancomycin Trough 05/04/19 05/04/19 05/04/19 08:06 12:11 16:13 WBC RDW Lymph % (Auto) Lymph # [place] # Seg Neutrophils % Seg Neutrophils # D-Dimer POC ABG pO2 Sodium Chloride BUN Glucose POC Glucose 446 H 426 H 370 H Hemoglobin A1c Lactic Acid Calcium Magnesium Total Bilirubin Total Creatine Kinase Albumin Urine WBC (Auto) Vancomycin Trough 05/04/19 05/05/19 05/05/19 21:15 04:33 04:33 WBC 12.6 H RDW 15.4 H Lymph % (Auto) Lymph # [place] # Seg Neutrophils % Seg Neutrophils # D-Dimer POC ABG pO2 Sodium Chloride 96.8 L BUN 27 H Glucose 309 H POC Glucose 356 H Hemoglobin A1c Lactic Acid Calcium 8.0 L Magnesium Total Bilirubin Total Creatine Kinase Albumin Urine WBC (Auto) Vancomycin Trough 05/05/19 05/05/19 05/05/19 07:37 11:51 13:06 WBC RDW Lymph % (Auto) Lymph # [place] # Seg Neutrophils % Seg Neutrophils # D-Dimer POC ABG pO2 Sodium Chloride BUN Glucose POC Glucose 373 H 362 H Hemoglobin A1c Lactic Acid Calcium Magnesium Total Bilirubin Total Creatine Kinase Albumin Urine WBC (Auto) Vancomycin Trough 31.0 H 05/05/19 05/05/19 05/06/19 17:02 21:13 08:08 WBC RDW Lymph % (Auto) Lymph # [place] # Seg Neutrophils % Seg Neutrophils # D-Dimer POC ABG pO2 Sodium Chloride BUN Glucose POC Glucose 413 H 364 H 240 H Hemoglobin A1c Lactic Acid Calcium Magnesium Total Bilirubin Total Creatine Kinase Albumin Urine WBC (Auto) Vancomycin Trough 05/06/19 11:58 WBC RDW Lymph % (Auto) Lymph # [place] # Seg Neutrophils % Seg Neutrophils # D-Dimer POC ABG pO2 Sodium Chloride BUN Glucose POC Glucose 269 H Hemoglobin A1c Lactic Acid Calcium Magnesium Total Bilirubin Total Creatine Kinase Albumin Urine WBC (Auto) Vancomycin Trough Chest x-ray: report reviewed, image reviewed (resolution of LLL infiltrate)
[2019-05-06] MEDS: VANCOMYCIN 1,250 MG in NACL 0.9% 250ML 250 ML IV SCH (16:16)
--- NOTE | 2019-05-06 16:35 | Progress Note ---
Assessment and Plan Assessment and plan: 59-year-old female with a history of pulmonary embolism off anticoagulants for at least 2 years has been going to the [facility] for treatment of a respiratory illness for the past week. She was placed on clarithromycin and prednisone. She was given home nebs. She has had left sided chest pain. She complains of cough which was initially clear but now turned green. She had more shortness of breath on day of admission. In ED she had a pulse oximetry of 85% on room air. Chest X ray revealed pneumonia. She is being treated for Sepsis due to Pneumonia, UTI and asthma exacerbation. Sepsis due to pneumonia, UTI Cont Cefepime and vancomycin Acute respiratory failure due to pneumonia and asthma exacerbation suplemental Oxygen Pulmonology following Left lower lobe pneumonia. Was initially admitted to IM, now on Medical floor Cefepime, Vanco Pulmonology following Diabetes mellitus type 2, uncontrolled Increase Novolin 70/30 to 26 Units bid Decrease solu-medrol dose Sliding scale Asthma exacerbation Decreased dose of Solu-medrol iv Chest pain, atypical Due to cough from asthma, pneumonia Full code status Likely dc home tomorrow. History Interval history: Less shortness of breath Still coughing Chest pain resolved Hospitalist Physical - Physical exam Narrative exam: Gen: Not in acute distress, Lying in bed,obese HEENT: Normocephalic, atraumatic Neck: supple, no JVD Heart: S1 and S2 reg, no murmurs, rubs or gallop Lungs: Crackles left base, bilateral rhonchi, Abd: soft, non tender, non distended, normal BS, Ext: No edema, no clubbing, no cyanosis Neuro: Awake, alert, oriented X 3, no focal neurological signs - Constitutional Vitals: Temp Pulse Resp BP Pulse Ox 98.7 F 94 H 18 114/71 94 05/06/19 11:52 05/06/19 14:00 05/06/19 14:00 05/06/19 11:52 05/06/19 11:52 General appearance: Present: no acute distress, obese Results - Labs CBC & Chem 7: 05/05/19 04:33 05/05/19 04:33 Labs: Laboratory Last Values WBC 12.6 K/mm3 (4.5-11.0) H 05/05/19 04:33 RBC 4.12 M/mm3 (3.65-5.03) 05/05/19 04:33 Hgb 12.1 gm/dl (10.1-14.3) 05/05/19 04:33 Hct 36.4 % (30.3-42.9) 05/05/19 04:33 MCV 88 fl (79-97) 05/05/19 04:33 MCH 29 pg (28-32) 05/05/19 04:33 MCHC 33 % (30-34) 05/05/19 04:33 RDW 15.4 % (13.2-15.2) H 05/05/19 04:33 Plt Count 255 K/mm3 (140-440) 05/05/19 04:33 Lymph % (Auto) 4.9 % (13.4-35.0) L 05/02/19 11:39 [place] % (Auto) 5.5 % (0.0-7.3) 05/02/19 11:39 Eos % (Auto) 0.0 % (0.0-4.3) 05/02/19 11:39 Baso % (Auto) 0.1 % (0.0-1.8) 05/02/19 11:39 Lymph # 0.8 K/mm3 (1.2-5.4) L 05/02/19 11:39 [place] # 0.9 K/mm3 (0.0-0.8) H 05/02/19 11:39 Eos # 0.0 K/mm3 (0.0-0.4) 05/02/19 11:39 Baso # 0.0 K/mm3 (0.0-0.1) 05/02/19 11:39 Seg Neutrophils % 89.5 % (40.0-70.0) H 05/02/19 11:39 Seg Neutrophils # 14.1 K/mm3 (1.8-7.7) H 05/02/19 11:39 PT 13.1 Sec. (12.2-14.9) 05/02/19 11:39 INR 1.02 (0.87-1.13) 05/02/19 11:39 APTT 26.9 Sec. (24.2-36.6) 05/02/19 11:39 D-Dimer 656.64 ng/mlDDU (0-234) H 05/02/19 11:39 POC ABG pH 7.441 (7.35-7.45) 05/02/19 14:23 POC ABG pCO2 42.6 (35-45) 05/02/19 14:23 POC ABG pO2 55 (80-105) L 05/02/19 14:23 POC ABG HCO3 29.0 (22-26 mml/L) 05/02/19 14:23 POC ABG Total CO2 30 (23-27mmol/L) 05/02/19 14:23 POC ABG O2 Sat 89 05/02/19 14:23 POC ABG Base Excess 5 ((-2) - (+3)mmol/L) 05/02/19 14:23 FiO2 28 % 05/02/19 14:23 Sodium 137 mmol/L (137-145) 05/05/19 04:33 Potassium 3.9 mmol/L (3.6-5.0) 05/05/19 04:33 Chloride 96.8 mmol/L (98-107) L 05/05/19 04:33 Carbon Dioxide 27 mmol/L (22-30) 05/05/19 04:33 Anion Gap 17 mmol/L 05/05/19 04:33 BUN 27 mg/dL (7-17) H 05/05/19 04:33 Creatinine 0.9 mg/dL (0.7-1.2) 05/05/19 04:33 Estimated GFR > 60 ml/min 05/05/19 04:33 BUN/Creatinine Ratio 30 % 05/05/19 04:33 Glucose 309 mg/dL (65-100) H 05/05/19 04:33 POC Glucose 269 (70-105) H 05/06/19 11:58 Hemoglobin A1c 10.3 % (4-6) H 05/04/19 06:00 Lactic Acid 1.50 mmol/L (0.7-2.0) 05/02/19 18:34 Calcium 8.0 mg/dL (8.4-10.2) L 05/05/19 04:33 Magnesium 1.50 mg/dL (1.7-2.3) L 05/02/19 11:39 Total Bilirubin 1.30 mg/dL (0.1-1.2) H 05/02/19 11:39 AST 14 units/L (5-40) 05/02/19 11:39 ALT 21 units/L (7-56) 05/02/19 11:39 Alkaline Phosphatase 83 units/L (35-129) 05/02/19 11:39 Total Creatine Kinase 333 units/L (30-135) H 05/02/19 11:39 CK-MB (CK-2) 1.6 ng/mL (0.0-4.0) 05/02/19 11:39 CK-MB (CK-2) Rel Index 0.4 (0-4) 05/02/19 11:39 Troponin T < 0.010 ng/mL (0.00-0.029) 05/02/19 11:39 NT-Pro-B Natriuret Pep 313.7 pg/mL (0-900) 05/02/19 11:39 Total Protein 7.3 g/dL (6.3-8.2) 05/02/19 11:39 Albumin 3.7 g/dL (3.9-5) L 05/02/19 11:39 Albumin/Globulin Ratio 1.0 % 05/02/19 11:39 Urine Color Straw (Yellow) 05/02/19 12:06 Urine Turbidity Clear (Clear) 05/02/19 12:06 Urine pH 5.0 (5.0-7.0) 05/02/19 12:06 Ur Specific [place] 1.014 (1.003-1.030) 05/02/19 12:06 Urine Protein <15 mg/dl mg/dL (Negative) 05/02/19 12:06 Urine Glucose (UA) >=500 mg/dL (Negative) 05/02/19 12:06 Urine Ketones Tr mg/dL (Negative) 05/02/19 12:06 Urine Blood Sm (Negative) 05/02/19 12:06 Urine Nitrite Neg (Negative) 05/02/19 12:06 Urine Bilirubin Neg (Negative) 05/02/19 12:06 Urine Urobilinogen < 2.0 mg/dL (<2.0) 05/02/19 12:06 Ur Leukocyte Esterase Mod (Negative) 05/02/19 12:06 Urine WBC (Auto) 36.0 /HPF (0.0-6.0) H 05/02/19 12:06 Urine RBC (Auto) 4.0 /HPF (0.0-6.0) 05/02/19 12:06 U Epithel Cells (Auto) 1.0 /HPF (0-13.0) 05/02/19 12:06 Urine WBC Clumps 3+ /HPF 05/02/19 12:06 Vancomycin Trough 31.0 ug/mL (5.0-20.0) H 05/05/19 13:06 Random Vancomycin 16.6 ug/mL (0-40.0) 05/06/19 12:56 Active Medications - Current Medications Current Medications: Generic Name Dose Route Start Last Admin Trade Name Freq PRN Reason Stop Dose Admin Acetaminophen 650 mg 05/05/19 13:16 05/05/19 14:02 Tylenol PO 650 mg Q6H PRN Administration Pain, Mild (1-3) Albuterol/Ipratropium 1 ampul 05/05/19 14:00 05/06/19 15:15 Duoneb *Not For Prn Use* IH 1 ampul TIDRT WILIAN Administration Arformoterol Tartrate 15 mcg 05/03/19 08:00 05/06/19 10:13 Brovana Nebu IH 15 mcg Q12HRT WILIAN Administration Benzonatate 100 mg 05/05/19 14:00 05/06/19 13:28 Tessalon Perles PO 100 mg Q8HR WILIAN Administration Budesonide 0.5 mg 05/03/19 08:00 05/06/19 10:13 Pulmicort IH 0.5 mg Q12HRT WILIAN Administration Cyclobenzaprine HCl 10 mg 05/03/19 10:00 05/06/19 09:31 Flexeril PO 10 mg DAILY WILIAN Administration Enoxaparin Sodium 40 mg 05/03/19 22:00 05/05/19 21:20 Lovenox SUB-Q 40 mg QDAY@2200 WILIAN Administration Cefepime HCl 2 gm in 100 mls @ 200 mls/hr 05/02/19 22:00 05/06/19 13:28 Maxipime/Ns 2 Gm/100 Ml IV 200 mls/hr Q8HR WILIAN Administration Protocol Sodium Chloride 1,000 mls @ 75 mls/hr 05/05/19 16:00 05/06/19 11:24 Nacl 0.9% 1000 Ml IV 75 mls/hr DIRECT WILIAN Administration Vancomycin HCl 1,250 mg/ 275 mls @ 166.667 mls/hr 05/06/19 14:15 05/06/19 16:16 Sodium Chloride IV 166.667 mls/hr Q18H WILIAN Administration Insulin Human Isoph/Insulin Regular 30 unit 05/06/19 08:00 05/06/19 09:28 Humulin 70/30 SUB-Q 30 unit BIDDIAB WILIAN Administration Insulin Human Lispro 0 unit 05/02/19 22:00 05/06/19 13:27 Humalog SUB-Q 6 unit ACHS WILIAN Administration Protocol Montelukast Sodium 10 mg 05/03/19 18:00 05/05/19 19:16 Singulair PO 10 mg QPM WILIAN Administration Potassium Chloride 10 meq 05/02/19 22:00 05/06/19 09:31 K-Dur PO 10 meq BID WILIAN Administration Pravastatin Sodium 10 mg 05/02/19 22:00 05/05/19 21:21 Pravachol PO 10 mg QHS WILIAN Administration Prednisone 40 mg 05/07/19 10:00 Deltasone PO QDAY WILIAN Venlafaxine HCl 112.5 mg 05/02/19 22:00 05/06/19 09:30 Effexor PO 112.5 mg QDAY WILIAN Administration Zolpidem Tartrate 10 mg 05/02/19 22:03 05/05/19 21:31 Ambien PO 10 mg QHS PRN Administration Sleep
[2019-05-06] MEDS: SINGULAIR PO SCH (17:55)
[2019-05-06] MEDS: PRAVACHOL PO SCH (23:55)
[2019-05-06] MEDS: LOVENOX SUB-Q SCH (23:55)
[2019-05-06] MEDS: AMBIEN PO PRN (23:55)
[2019-05-07] MEDS: NACL 0.9% 1000 ML 1,000 ML IV SCH (00:02)
[2019-05-07] MEDS: MAXIPIME/NS 2 GM/100 ML 2 GM/100 ML BAG IV SCH ×4 (07:06→22:16)
[2019-05-07] MEDS: TESSALON PERLES PO SCH ×3 (07:06→22:16)
[2019-05-07] MEDS: HumaLOG SUB-Q SCH ×4 (08:22→22:18)
[2019-05-07] MEDS: VANCOMYCIN 1,250 MG in NACL 0.9% 250ML 250 ML IV SCH (08:22)
[2019-05-07] MEDS: DUONEB *Not for PRN Use IH SCH ×2 (08:51→21:50)
[2019-05-07] MEDS: PULMICORT IH SCH ×2 (08:51→21:49)
[2019-05-07] MEDS: BROVANA NEBU IH SCH ×2 (08:51→21:49)
[2019-05-07] MEDS: EFFEXOR PO SCH (10:36)
[2019-05-07] MEDS: K-DUR PO SCH ×2 (10:36→22:17)
[2019-05-07] MEDS: DELTASONE PO SCH (10:37)
[2019-05-07] MEDS: FLEXERIL PO SCH (10:37)
--- NOTE | 2019-05-07 16:46 | Progress Note ---
Assessment and Plan Imp: 1. CAP 2. Acute respiratory failure, hypoxia 3. Sepsis 4. Obesity 5. Asthma exac. 6. Hx of PE Rec: 1. Cont. current IV ABX day #6; probably can finish 3-5 more days of Levaquin at d/c 2. Change to Prednisone in AM, taper at d/c; [place] Pulmicort 3. Wean off of O2 to keep sats 88% or > 4. Will need incentive spirometry -> ordered again today 5. DVT PPx with Lovenox 6. CXR shows resolution of LLL density 7. Home when hypoxia resolves Plan of care reviewed w/ patient, she understands/agrees Subjective Date of service: 05/07/19 Principal diagnosis: Pneumonia Interval history: No events. SOB and wheezing better. Cough and sputum improving. Feels better today and in better spirits. Desaturated to 80% on RA today. Active Medications Acetaminophen (Tylenol) 650 mg PO Q6H PRN PRN Reason: Pain, Mild (1-3) Last Admin: 05/05/19 14:02 Dose: 650 mg Documented by: Albuterol/Ipratropium (Duoneb *Not For Prn Use*) 1 ampul IH TIDRT [facility] Last Admin: 05/07/19 08:51 Dose: Not Given Documented by: Arformoterol Tartrate (Brovana Nebu) 15 mcg IH Q12HRT [facility] Last Admin: 05/07/19 08:51 Dose: 15 mcg Documented by: Benzonatate (Tessalon Perles) 100 mg PO Q8HR [facility] Last Admin: 05/07/19 14:26 Dose: 100 mg Documented by: Budesonide (Pulmicort) 0.5 mg IH Q12HRT [facility] Last Admin: 05/07/19 08:51 Dose: 0.5 mg Documented by: Cyclobenzaprine HCl (Flexeril) 10 mg PO DAILY [facility] Last Admin: 05/07/19 10:37 Dose: 10 mg Documented by: Enoxaparin Sodium (Lovenox) 40 mg SUB-Q QDAY@2200 [facility] Last Admin: 05/06/19 23:55 Dose: 40 mg Documented by: Cefepime HCl (Maxipime/Ns 2 Gm/100 Ml) 2 gm in 100 mls @ 200 mls/hr IV Q8HR [facility]; Protocol Last Admin: 05/07/19 14:26 Dose: 200 mls/hr Documented by: Sodium Chloride (Nacl 0.9% 1000 Ml) 1,000 mls @ 75 mls/hr IV DIRECT [facility] Last Admin: 05/07/19 00:02 Dose: 75 mls/hr Documented by: Vancomycin HCl 1,250 mg/ (Sodium Chloride) 275 mls @ 166.667 mls/hr IV Q18H [facility] Last Admin: 05/07/19 08:22 Dose: 166.667 mls/hr Documented by: Insulin Human Isoph/Insulin Regular (Humulin 70/30) 30 unit SUB-Q BIDDIAB [facility] Last Admin: 05/07/19 08:00 Dose: Not Given Documented by: Insulin Human Lispro (Humalog) 0 unit SUB-Q ACHS [facility]; Protocol Last Admin: 05/07/19 08:22 Dose: Not Given Documented by: Montelukast Sodium (Singulair) 10 mg PO QPM [facility] Last Admin: 05/06/19 17:55 Dose: 10 mg Documented by: Potassium Chloride (K-Dur) 10 meq PO BID [facility] Last Admin: 05/07/19 10:36 Dose: 10 meq Documented by: Pravastatin Sodium (Pravachol) 10 mg PO QHS [facility] Last Admin: 05/06/19 23:55 Dose: 10 mg Documented by: Prednisone (Deltasone) 40 mg PO QDAY [facility] Last Admin: 05/07/19 10:37 Dose: 40 mg Documented by: Venlafaxine HCl (Effexor) 112.5 mg PO QDAY [facility] Last Admin: 05/07/19 10:36 Dose: 112.5 mg Documented by: Zolpidem Tartrate (Ambien) 10 mg PO QHS PRN PRN Reason: Sleep Last Admin: 05/06/19 23:55 Dose: 10 mg Documented by: Objective Vital Signs - 12hr 05/07/19 05/07/19 05/07/19 06:25 07:05 08:00 Temperature 98.2 F Pulse Rate 84 89 Pulse Rate [ 121 H Anterior Bilateral Throughout] Pulse Rate [ 121 H Posterior Bilateral Lower Lobe] Respiratory 18 Rate Respiratory 18 Rate [Anterior Bilateral Throughout] Respiratory 18 Rate [Posterior Bilateral Lower Lobe] Blood Pressure 103/69 Blood Pressure 91/56 [Right] O2 Sat by Pulse 93 93 Oximetry 05/07/19 05/07/19 08:53 12:08 Temperature 98.0 F Pulse Rate 89 Pulse Rate [ Anterior Bilateral Throughout] Pulse Rate [ Posterior Bilateral Lower Lobe] Respiratory 22 Rate Respiratory Rate [Anterior Bilateral Throughout] Respiratory Rate [Posterior Bilateral Lower Lobe] Blood Pressure 107/67 Blood Pressure [Right] O2 Sat by Pulse 94 96 Oximetry Constitutional: no acute distress, alert Eyes: non-icteric ENT: oropharynx moist Neck: supple Effort: normal Ascultation: Left: rales (base), Bilateral: clear (poor inspiratory effort) Cardiovascular: regular rate and rhythm (no mrg) Gastrointestinal: normoactive bowel sounds, soft, non-tender, non-distended Integumentary: normal Extremities: no cyanosis, no edema, pink and warm Neurologic: normal mental status, non-focal exam, pupils equal and round, CN II- XII normal Psychiatric: mood appropriate, affect normal CBC and BMP: 05/05/19 04:33 05/05/19 04:33 ABG, PT/INR, D-dimer: ABG POC ABG pH 7.441 (7.35-7.45) 05/02/19 14:23 POC ABG pCO2 42.6 (35-45) 05/02/19 14:23 POC ABG pO2 55 (80-105) L 05/02/19 14:23 POC ABG HCO3 29.0 (22-26 mml/L) 05/02/19 14:23 POC ABG Total CO2 30 (23-27mmol/L) 05/02/19 14:23 POC ABG O2 Sat 89 05/02/19 14:23 PT/INR, D-dimer PT 13.1 Sec. (12.2-14.9) 05/02/19 11:39 INR 1.02 (0.87-1.13) 05/02/19 11:39 D-Dimer 656.64 ng/mlDDU (0-234) H 05/02/19 11:39 Abnormal lab findings: Abnormal Labs 05/02/19 05/02/19 05/02/19 11:39 11:39 11:39 WBC 15.7 H RDW 15.4 H Lymph % (Auto) 4.9 L Lymph # 0.8 L [place] # 0.9 H Seg Neutrophils % 89.5 H Seg Neutrophils # 14.1 H D-Dimer 656.64 H POC ABG pO2 Sodium 133 L Chloride 88.2 L BUN 23 H Glucose 309 H POC Glucose Hemoglobin A1c Lactic Acid Calcium Magnesium 1.50 L Total Bilirubin 1.30 H Total Creatine Kinase Albumin 3.7 L Urine WBC (Auto) Vancomycin Trough 05/02/19 05/02/19 05/02/19 11:39 12:06 12:40 WBC RDW Lymph % (Auto) Lymph # [place] # Seg Neutrophils % Seg Neutrophils # D-Dimer POC ABG pO2 Sodium Chloride BUN Glucose POC Glucose Hemoglobin A1c Lactic Acid 2.20 H* Calcium Magnesium Total Bilirubin Total Creatine Kinase 333 H Albumin Urine WBC (Auto) 36.0 H Vancomycin Trough 05/02/19 05/02/19 05/02/19 13:40 14:18 14:23 WBC RDW Lymph % (Auto) Lymph # [place] # Seg Neutrophils % Seg Neutrophils # D-Dimer POC ABG pO2 55 L Sodium Chloride BUN Glucose POC Glucose 322 H Hemoglobin A1c Lactic Acid 5.20 H* Calcium Magnesium Total Bilirubin Total Creatine Kinase Albumin Urine WBC (Auto) Vancomycin Trough 05/02/19 05/02/19 05/03/19 15:16 23:39 00:18 WBC RDW Lymph % (Auto) Lymph # [place] # Seg Neutrophils % Seg Neutrophils # D-Dimer POC ABG pO2 Sodium Chloride BUN Glucose 495 H POC Glucose > 500 H Hemoglobin A1c Lactic Acid 3.70 H* Calcium Magnesium Total Bilirubin Total Creatine Kinase Albumin Urine WBC (Auto) Vancomycin Trough 05/03/19 05/03/19 05/03/19 07:44 09:37 09:37 WBC 12.4 H RDW 15.7 H Lymph % (Auto) Lymph # [place] # Seg Neutrophils % Seg Neutrophils # D-Dimer POC ABG pO2 Sodium 133 L Chloride 92.3 L BUN 26 H Glucose 457 H POC Glucose 369 H Hemoglobin A1c Lactic Acid Calcium Magnesium Total Bilirubin Total Creatine Kinase Albumin Urine WBC (Auto) Vancomycin Trough 05/03/19 05/03/19 05/03/19 11:03 16:42 21:43 WBC RDW Lymph % (Auto) Lymph # [place] # Seg Neutrophils % Seg Neutrophils # D-Dimer POC ABG pO2 Sodium Chloride BUN Glucose POC Glucose 389 H 326 H 398 H Hemoglobin A1c Lactic Acid Calcium Magnesium Total Bilirubin Total Creatine Kinase Albumin Urine WBC (Auto) Vancomycin Trough 05/04/19 05/04/1905/04/19 06:00 06:00 06:00 WBC 11.8 H RDW 15.6 H Lymph % (Auto) Lymph # [place] # Seg Neutrophils % Seg Neutrophils # D-Dimer POC ABG pO2 Sodium Chloride 96.1 L BUN 25 H Glucose 439 H POC Glucose Hemoglobin A1c 10.3 H Lactic Acid Calcium 8.2 L Magnesium Total Bilirubin Total Creatine Kinase Albumin Urine WBC (Auto) Vancomycin Trough 05/04/19 05/04/19 05/04/19 08:06 12:11 16:13 WBC RDW Lymph % (Auto) Lymph # [place] # Seg Neutrophils % Seg Neutrophils # D-Dimer POC ABG pO2 Sodium Chloride BUN Glucose POC Glucose 446 H 426 H 370 H Hemoglobin A1c Lactic Acid Calcium Magnesium Total Bilirubin Total Creatine Kinase Albumin Urine WBC (Auto) Vancomycin Trough 05/04/19 05/05/19 05/05/19 21:15 04:33 04:33 WBC 12.6 H RDW 15.4 H Lymph % (Auto) Lymph # [place] # Seg Neutrophils % Seg Neutrophils # D-Dimer POC ABG pO2 Sodium Chloride 96.8 L BUN 27 H Glucose 309 H POC Glucose 356 H Hemoglobin A1c Lactic Acid Calcium 8.0 L Magnesium Total Bilirubin Total Creatine Kinase Albumin Urine WBC (Auto) Vancomycin Trough 05/05/19 05/05/19 05/05/19 07:37 11:51 13:06 WBC RDW Lymph % (Auto) Lymph # [place] # Seg Neutrophils % Seg Neutrophils # D-Dimer POC ABG pO2 Sodium Chloride BUN Glucose POC Glucose 373 H 362 H Hemoglobin A1c Lactic Acid Calcium Magnesium Total Bilirubin Total Creatine Kinase Albumin Urine WBC (Auto) Vancomycin Trough 31.0 H 05/05/19 05/05/19 05/06/19 17:02 21:13 08:08 WBC RDW Lymph % (Auto) Lymph # [place] # Seg Neutrophils % Seg Neutrophils # D-Dimer POC ABG pO2 Sodium Chloride BUN Glucose POC Glucose 413 H 364 H 240 H Hemoglobin A1c Lactic Acid Calcium Magnesium Total Bilirubin Total Creatine Kinase Albumin Urine WBC (Auto) Vancomycin Trough 05/06/19 05/06/19 05/06/19 11:58 16:40 21:16 WBC RDW Lymph % (Auto) Lymph # [place] # Seg Neutrophils % Seg Neutrophils # D-Dimer POC ABG pO2 Sodium Chloride BUN Glucose POC Glucose 269 H 295 H 230 H Hemoglobin A1c Lactic Acid Calcium Magnesium Total Bilirubin Total Creatine Kinase Albumin Urine WBC (Auto) Vancomycin Trough 05/07/19 12:17 WBC RDW Lymph % (Auto) Lymph # [place] # Seg Neutrophils % Seg Neutrophils # D-Dimer POC ABG pO2 Sodium Chloride BUN Glucose POC Glucose 258 H Hemoglobin A1c Lactic Acid Calcium Magnesium Total Bilirubin Total Creatine Kinase Albumin Urine WBC (Auto) Vancomycin Trough Chest x-ray: report reviewed, image reviewed
[2019-05-07] MEDS: SINGULAIR PO SCH (18:28)
--- NOTE | 2019-05-07 18:54 | Progress Note ---
Assessment and Plan Assessment and plan: 59-year-old female with a history of pulmonary embolism off anticoagulants for at least 2 years has been going to the [facility] for treatment of a respiratory illness for the past week. She was placed on clarithromycin and prednisone. She was given home nebs. She has had left sided chest pain. She complains of cough which was initially clear but now turned green. She had more shortness of breath on day of admission. In ED she had a pulse oximetry of 85% on room air. Chest X ray revealed pneumonia. She is being treated for Sepsis due to Pneumonia, UTI and asthma exacerbation. Sepsis due to pneumonia, UTI Cont Cefepime and vancomycin Acute respiratory failure due to pneumonia and asthma exacerbation with hypoxia, o2 sat down to the mid 80s suplemental Oxygen Pulmonology following Left lower lobe pneumonia. Was initially admitted to [facility], now on Medical floor Cefepime, Vanco Pulmonology following Chronic Right lobe Atalectasis. Diabetes mellitus type 2, uncontrolled Increase Novolin 70/30 to 26 Units bid Restart Glipizide Sliding scale Asthma exacerbation Decreased dose of Solu-medrol iv Chest pain, atypical Due to cough from asthma, pneumonia Full code status Likely dc home tomorrow. History Interval history: Patient seen and examined, resting comfortable, but with shortness of breath on ambulation. No chest pain. Hospitalist Physical - Physical exam Narrative exam: Gen: Not in acute distress, Lying in bed,obese HEENT: Normocephalic, atraumatic Neck: supple, no JVD Heart: S1 and S2 reg, no murmurs, rubs or gallop Lungs: Crackles left base, bilateral rhonchi, Abd: soft, non tender, non distended, normal BS, Ext: No edema, no clubbing, no cyanosis Neuro: Awake, alert, oriented X 3, no focal neurological signs - Constitutional Vitals: Temp Pulse Resp BP Pulse Ox 98.1 F 88 20 125/70 94 05/07/19 18:08 05/07/19 18:08 05/07/19 18:08 05/07/19 18:08 05/07/19 18:08 General appearance: Present: no acute distress, obese Results - Labs CBC & Chem 7: 05/08/19 05:04 05/08/19 05:04 Labs: Laboratory Last Values WBC 12.6 K/mm3 (4.5-11.0) H 05/05/19 04:33 RBC 4.12 M/mm3 (3.65-5.03) 05/05/19 04:33 Hgb 12.1 gm/dl (10.1-14.3) 05/05/19 04:33 Hct 36.4 % (30.3-42.9) 05/05/19 04:33 MCV 88 fl (79-97) 05/05/19 04:33 MCH 29 pg (28-32) 05/05/19 04:33 MCHC 33 % (30-34) 05/05/19 04:33 RDW 15.4 % (13.2-15.2) H 05/05/19 04:33 Plt Count 255 K/mm3 (140-440) 05/05/19 04:33 Lymph % (Auto) 4.9 % (13.4-35.0) L 05/02/19 11:39 [place] % (Auto) 5.5 % (0.0-7.3) 05/02/19 11:39 Eos % (Auto) 0.0 % (0.0-4.3) 05/02/19 11:39 Baso % (Auto) 0.1 % (0.0-1.8) 05/02/19 11:39 Lymph # 0.8 K/mm3 (1.2-5.4) L 05/02/19 11:39 Stearns # 0.9 K/mm3 (0.0-0.8) H 05/02/19 11:39 Eos # 0.0 K/mm3 (0.0-0.4) 05/02/19 11:39 Baso # 0.0 K/mm3 (0.0-0.1) 05/02/19 11:39 Seg Neutrophils % 89.5 % (40.0-70.0) H 05/02/19 11:39 Seg Neutrophils # 14.1 K/mm3 (1.8-7.7) H 05/02/19 11:39 PT 13.1 Sec. (12.2-14.9) 05/02/19 11:39 INR 1.02 (0.87-1.13) 05/02/19 11:39 APTT 26.9 Sec. (24.2-36.6) 05/02/19 11:39 D-Dimer 656.64 ng/mlDDU (0-234) H 05/02/19 11:39 POC ABG pH 7.441 (7.35-7.45) 05/02/19 14:23 POC ABG pCO2 42.6 (35-45) 05/02/19 14:23 POC ABG pO2 55 (80-105) L 05/02/19 14:23 POC ABG HCO3 29.0 (22-26 mml/L) 05/02/19 14:23 POC ABG Total CO2 30 (23-27mmol/L) 05/02/19 14:23 POC ABG O2 Sat 89 05/02/19 14:23 POC ABG Base Excess 5 ((-2) - (+3)mmol/L) 05/02/19 14:23 FiO2 28 % 05/02/19 14:23 Sodium 137 mmol/L (137-145) 05/05/19 04:33 Potassium 3.9 mmol/L (3.6-5.0) 05/05/19 04:33 Chloride 96.8 mmol/L (98-107) L 05/05/19 04:33 Carbon Dioxide 27 mmol/L (22-30) 05/05/19 04:33 Anion Gap 17 mmol/L 05/05/19 04:33 BUN 27 mg/dL (7-17) H 05/05/19 04:33 Creatinine 0.9 mg/dL (0.7-1.2) 05/05/19 04:33 Estimated GFR > 60 ml/min 05/05/19 04:33 BUN/Creatinine Ratio 30 % 05/05/19 04:33 Glucose 309 mg/dL (65-100) H 05/05/19 04:33 POC Glucose 452 (70-105) H 05/07/19 18:18 Hemoglobin A1c 10.3 % (4-6) H 05/04/19 06:00 Lactic Acid 1.50 mmol/L (0.7-2.0) 05/02/19 18:34 Calcium 8.0 mg/dL (8.4-10.2) L 05/05/19 04:33 Magnesium 1.50 mg/dL (1.7-2.3) L 05/02/19 11:39 Total Bilirubin 1.30 mg/dL (0.1-1.2) H 05/02/19 11:39 AST 14 units/L (5-40) 05/02/19 11:39 ALT 21 units/L (7-56) 05/02/19 11:39 Alkaline Phosphatase 83 units/L (35-129) 05/02/19 11:39 Total Creatine Kinase 333 units/L (30-135) H 05/02/19 11:39 CK-MB (CK-2) 1.6 ng/mL (0.0-4.0) 05/02/19 11:39 CK-MB (CK-2) Rel Index 0.4 (0-4) 05/02/19 11:39 Troponin T < 0.010 ng/mL (0.00-0.029) 05/02/19 11:39 NT-Pro-B Natriuret Pep 313.7 pg/mL (0-900) 05/02/19 11:39 Total Protein 7.3 g/dL (6.3-8.2) 05/02/19 11:39 Albumin 3.7 g/dL (3.9-5) L 05/02/19 11:39 Albumin/Globulin Ratio 1.0 % 05/02/19 11:39 Urine Color Straw (Yellow) 05/02/19 12:06 Urine Turbidity Clear (Clear) 05/02/19 12:06 Urine pH 5.0 (5.0-7.0) 05/02/19 12:06 Ur Specific [place] 1.014 (1.003-1.030) 05/02/19 12:06 Urine Protein <15 mg/dl mg/dL (Negative) 05/02/19 12:06 Urine Glucose (UA) >=500 mg/dL (Negative) 05/02/19 12:06 Urine Ketones Tr mg/dL (Negative) 05/02/19 12:06 Urine Blood Sm (Negative) 05/02/19 12:06 Urine Nitrite Neg (Negative) 05/02/19 12:06 Urine Bilirubin Neg (Negative) 05/02/19 12:06 Urine Urobilinogen < 2.0 mg/dL (<2.0) 05/02/19 12:06 Ur Leukocyte Esterase Mod (Negative) 05/02/19 12:06 Urine WBC (Auto) 36.0 /HPF (0.0-6.0) H 05/02/19 12:06 Urine RBC (Auto) 4.0 /HPF (0.0-6.0) 05/02/19 12:06 U Epithel Cells (Auto) 1.0 /HPF (0-13.0) 05/02/19 12:06 Urine WBC Clumps 3+ /HPF 05/02/19 12:06 Vancomycin Trough 31.0 ug/mL (5.0-20.0) H 05/05/19 13:06 Random Vancomycin 16.6 ug/mL (0-40.0) 05/06/19 12:56 Active Medications - Current Medications Current Medications: Generic Name Dose Route Start Last Admin Trade Name Freq PRN Reason Stop Dose Admin Acetaminophen 650 mg 05/05/19 13:16 05/05/19 14:02 Tylenol PO 650 mg Q6H PRN Administration Pain, Mild (1-3) Albuterol/Ipratropium 1 ampul 05/05/19 14:00 05/07/19 08:51 Duoneb *Not For Prn Use* IH Not Given TIDRT WILIAN Arformoterol Tartrate 15 mcg 05/03/19 08:00 05/07/19 08:51 Brovana Nebu IH 15 mcg Q12HRT WILIAN Administration Benzonatate 100 mg 05/05/19 14:00 05/07/19 14:26 Tessalon Perles PO 100 mg Q8HR WILIAN Administration Budesonide 0.5 mg 05/03/19 08:00 05/07/19 08:51 Pulmicort IH 0.5 mg Q12HRT WILIAN Administration Cyclobenzaprine HCl 10 mg 05/03/19 10:00 05/07/19 10:37 Flexeril PO 10 mg DAILY WILIAN Administration Enoxaparin Sodium 40 mg 05/03/19 22:00 05/06/19 23:55 Lovenox SUB-Q 40 mg QDAY@2200 WILIAN Administration Cefepime HCl 2 gm in 100 mls @ 200 mls/hr 05/02/19 22:00 05/07/19 14:26 Maxipime/Ns 2 Gm/100 Ml IV 200 mls/hr Q8HR WILIAN Administration Protocol Sodium Chloride 1,000 mls @ 75 mls/hr 05/05/19 16:00 05/07/19 00:02 Nacl 0.9% 1000 Ml IV 75 mls/hr DIRECT WILIAN Administration Vancomycin HCl 1,250 mg/ 275 mls @ 166.667 mls/hr 05/06/19 14:15 05/07/19 08:22 Sodium Chloride IV 166.667 mls/hr Q18H WILIAN Administration Insulin Human Isoph/Insulin Regular 30 unit 05/06/19 08:00 05/07/19 18:26 Humulin 70/30 SUB-Q 30 unit BIDDIAB WILIAN Administration Insulin Human Lispro 0 unit 05/02/19 22:00 05/07/19 18:27 Humalog SUB-Q 10 unit ACHS WILIAN Administration Protocol Montelukast Sodium 10 mg 05/03/19 18:00 05/07/19 18:28 Singulair PO 10 mg QPM WILIAN Administration Potassium Chloride 10 meq 05/02/19 22:00 05/07/19 10:36 K-Dur PO 10 meq BID WILIAN Administration Pravastatin Sodium 10 mg 05/02/19 22:00 05/06/19 23:55 Pravachol PO 10 mg QHS WILIAN Administration Prednisone 40 mg 05/07/19 10:00 05/07/19 10:37 Deltasone PO 40 mg QDAY WILIAN Administration Venlafaxine HCl 112.5 mg 05/02/19 22:00 05/07/19 10:36 Effexor PO 112.5 mg QDAY WILIAN Administration Zolpidem Tartrate 10 mg 05/02/19 22:03 05/06/19 23:55 Ambien PO 10 mg QHS PRN Administration Sleep
[2019-05-07] MEDS: PRAVACHOL PO SCH (22:16)
[2019-05-07] MEDS: LOVENOX SUB-Q SCH (22:16)
[2019-05-07] MEDS: GLUCOTROL PO SCH (22:17)
[2019-05-07] MEDS: AMBIEN PO PRN (22:17)
[2019-05-08] MEDS: NACL 0.9% 1000 ML 1,000 ML IV SCH (01:04)
[2019-05-08] MEDS: VANCOMYCIN 1,250 MG in NACL 0.9% 250ML 250 ML IV SCH (04:18)
[2019-05-08 05:38] LABS: Hemoglobin 12.8 gm/dl (10.1-14.3); Mean Corpuscular HGB Conc 33 % (30-34); Mean Corpuscular Volume 90 fl (79-97); Platelet Count 257 K/mm3 (140-440); Red Blood Count 4.35 M/mm3 (3.65-5.03); Red Cell Distribution Width 15.6 % (13.2-15.2)
[2019-05-08] MEDS: TESSALON PERLES PO SCH (05:39)
[2019-05-08] MEDS: MAXIPIME/NS 2 GM/100 ML 2 GM/100 ML BAG IV SCH (05:39)
[2019-05-08 06:07] LABS: BUN/Creatinine Ratio 28; Blood Urea Nitrogen 22 mg/dL (7-17); Calcium 8.3 mg/dL (8.4-10.2); Hemolysis Index 8
[2019-05-08] MEDS: BROVANA NEBU IH SCH (07:58)
[2019-05-08] MEDS: PULMICORT IH SCH (07:58)
[2019-05-08] MEDS: DELTASONE PO SCH (09:33)
[2019-05-08] MEDS: K-DUR PO SCH (09:34)
[2019-05-08] MEDS: EFFEXOR PO SCH (09:34)
[2019-05-08] MEDS: HumaLOG SUB-Q SCH ×2 (09:34→12:59)
[2019-05-08] MEDS: FLEXERIL PO SCH (09:34)
[2019-05-08] MEDS: GLUCOTROL PO SCH (09:36)
--- NOTE | 2019-05-08 11:30 | Discharge Summary ---
Providers - Providers Date of Admission: 05/02/19 13:51 Attending physician: SAMI BALLESTEROS MD 05/03/19 06:17 Consult to Physician [CONS] Routine Comment: Consulting Provider: ANATOLY RAMACHANDRAN Physician Instructions: Reason For Exam: LLL PNA SIRS Primary care physician: RADHA RAZA MD Hospitalization Condition: Stable Hospital course: 59-year-old female with a history of pulmonary embolism off anticoagulants for at least 2 years has been going to the [facility] for treatment of a respiratory illness for the past week. She was placed on clarithromycin and prednisone. She was given home nebs. She has had left sided chest pain. She complains of cough which was initially clear but now turned green. She had more shortness of breath on day of admission. In ED she had a pulse oximetry of 85% on room air. Chest X ray revealed pneumonia. She is being treated for Sepsis due to Pneumonia, UTI and asthma exacerbation. Sepsis due to pneumonia, UTI Treated with Cefepime and vancomycin and discharged on levaquin to complete 5 additional days Acute respiratory failure due to pneumonia and asthma exacerbation with hypoxia, o2 sat down to the mid 80s Hypoxia now resolved. Oxygen sat at 90% with ambulation Pulmonology following Left lower lobe pneumonia. Was initially admitted to IMCU, now on Medical floor Chronic Right lobe Atalectasis. Diabetes mellitus type 2, uncontrolled STOP INSULIN AND DISCHARGE ON HOME DM MEDS Restart Glipizide Sliding scale Asthma exacerbation TAPER AND DISCHARGED ON po Chest pain, atypical Due to cough from asthma, pneumonia Disposition: DC-01 TO HOME OR SELFCARE Exam - Constitutional Vitals: Temp Pulse Resp BP Pulse Ox 97.5 F L 77 19 119/74 97 05/08/19 06:15 05/08/19 07:58 05/08/19 07:58 05/08/19 06:15 05/08/19 07:59 Plan Activity: advance as tolerated, fall precautions Diet: low fat Special Instructions: record daily weights, record daily BP diary Follow up with: RADHA RAZA MD [Primary Care Provider] - 3-5 Days KERA KAFUFMAN MD [Staff Physician] - 7 Days Prescriptions: Arformoterol Nebu [Brovana Nebu] 15 mcg IH Q12HRT #60 ml levoFLOXacin [Levaquin] 750 mg PO QDAY #5 tablet Prednisone [predniSONE 10 mg (6-Day Pack, 21 Tabs)] 10 mg PO .TAPER #1 tab.ds.pk Budesonide [Pulmicort Respules] 0.5 mg IH Q12HRT #60 nebu Benzonatate [Tessalon Perles] 100 mg PO Q8HR #14 capsule
[2019-05-08 12:09] VITALS: BP 122/68
--- NOTE | 2019-05-08 13:20 | Progress Note ---
Assessment and Plan Imp: 1. CAP 2. Acute respiratory failure, hypoxia 3. Sepsis 4. Obesity 5. Asthma exac. 6. Hx of PE Rec: 1. Cont. current IV ABX day #7; probably can finish 3-5 more days of Levaquin at d/c 2. Changed to Prednisone, taper at d/c; Duonebs, Pulmicort 3. Wean off of O2 to keep sats 88% or > 4. Will need incentive spirometry -> she has at home and will use 5. CXR shows resolution of LLL density 6. Agree w/ d/c home today; f/u w/ us in ~ 2 weeks for repeat CXR; office/contact information left with patient Plan of care reviewed w/ patient, she understands/agrees Subjective Date of service: 05/08/19 Principal diagnosis: Pneumonia Interval history: No events. SOB and wheezing better. Cough and sputum improving. Feels better today and in good spirits. Ambulated in hallway with O2 sats 90% or >. Active Medications Acetaminophen (Tylenol) 650 mg PO Q6H PRN PRN Reason: Pain, Mild (1-3) Last Admin: 05/05/19 14:02 Dose: 650 mg Documented by: Albuterol/Ipratropium (Duoneb *Not For Prn Use*) 1 ampul IH TIDRT [facility] Last Admin: 05/07/19 08:51 Dose: Not Given Documented by: Arformoterol Tartrate (Brovana Nebu) 15 mcg IH Q12HRT [facility] Last Admin: 05/07/19 08:51 Dose: 15 mcg Documented by: Benzonatate (Tessalon Perles) 100 mg PO Q8HR [facility] Last Admin: 05/07/19 14:26 Dose: 100 mg Documented by: Budesonide (Pulmicort) 0.5 mg IH Q12HRT [facility] Last Admin: 05/07/19 08:51 Dose: 0.5 mg Documented by: Cyclobenzaprine HCl (Flexeril) 10 mg PO DAILY [facility] Last Admin: 05/07/19 10:37 Dose: 10 mg Documented by: Enoxaparin Sodium (Lovenox) 40 mg SUB-Q QDAY@2200 [facility] Last Admin: 05/06/19 23:55 Dose: 40 mg Documented by: Cefepime HCl (Maxipime/Ns 2 Gm/100 Ml) 2 gm in 100 mls @ 200 mls/hr IV Q8HR [facility]; Protocol Last Admin: 05/07/19 14:26 Dose: 200 mls/hr Documented by: Sodium Chloride (Nacl 0.9% 1000 Ml) 1,000 mls @ 75 mls/hr IV DIRECT WILIAN Last Admin: 05/07/19 00:02 Dose: 75 mls/hr Documented by: Vancomycin HCl 1,250 mg/ (Sodium Chloride) 275 mls @ 166.667 mls/hr IV Q18H WILIAN Last Admin: 05/07/19 08:22 Dose: 166.667 mls/hr Documented by: Insulin Human Isoph/Insulin Regular (Humulin 70/30) 30 unit SUB-Q BIDDIAB [facility] Last Admin: 05/07/19 08:00 Dose: Not Given Documented by: Insulin Human Lispro (Humalog) 0 unit SUB-Q ACHS [facility]; Protocol Last Admin: 05/07/19 08:22 Dose: Not Given Documented by: Montelukast Sodium (Singulair) 10 mg PO QPM [facility] Last Admin: 05/06/19 17:55 Dose: 10 mg Documented by: Potassium Chloride (K-Dur) 10 meq PO BID [facility] Last Admin: 05/07/19 10:36 Dose: 10 meq Documented by: Pravastatin Sodium (Pravachol) 10 mg PO QHS [facility] Last Admin: 05/06/19 23:55 Dose: 10 mg Documented by: Prednisone (Deltasone) 40 mg PO QDAY [facility] Last Admin: 05/07/19 10:37 Dose: 40 mg Documented by: Venlafaxine HCl (Effexor) 112.5 mg PO QDAY [facility] Last Admin: 05/07/19 10:36 Dose: 112.5 mg Documented by: Zolpidem Tartrate (Ambien) 10 mg PO QHS PRN PRN Reason: Sleep Last Admin: 05/06/19 23:55 Dose: 10 mg Documented by: Objective Vital Signs - 12hr 05/08/19 05/08/19 05/08/19 06:15 07:58 07:59 Temperature 97.5 F L Pulse Rate 63 Pulse Rate [ 77 Anterior Bilateral Throughout] Pulse Rate [ 77 Posterior Bilateral Lower Lobe] Respiratory 20 Rate Respiratory 19 Rate [Anterior Bilateral Throughout] Respiratory 18 Rate [Posterior Bilateral Lower Lobe] Blood Pressure 119/74 O2 Sat by Pulse 96 97 Oximetry 05/08/19 05/08/19 10:00 11:41 Temperature 97.9 F Pulse Rate 85 Pulse Rate [ Anterior Bilateral Throughout] Pulse Rate [ Posterior Bilateral Lower Lobe] Respiratory 24 Rate Respiratory Rate [Anterior Bilateral Throughout] Respiratory Rate [Posterior Bilateral Lower Lobe] Blood Pressure 122/68 O2 Sat by Pulse 95 96 Oximetry Constitutional: no acute distress, alert Eyes: non-icteric ENT: oropharynx moist Neck: supple Effort: normal Ascultation: Right: clear, Left: rales (base) Cardiovascular: regular rate and rhythm (no mrg) Gastrointestinal: normoactive bowel sounds, soft, non-tender, non-distended Integumentary: normal Extremities: no cyanosis, no edema, pink and warm Neurologic: normal mental status, non-focal exam, pupils equal and round, CN II- XII normal Psychiatric: mood appropriate, affect normal CBC and BMP: 05/08/19 05:04 05/08/19 05:04 ABG, PT/INR, D-dimer: ABG POC ABG pH 7.441 (7.35-7.45) 05/02/19 14:23 POC ABG pCO2 42.6 (35-45) 05/02/19 14:23 POC ABG pO2 55 (80-105) L 05/02/19 14:23 POC ABG HCO3 29.0 (22-26 mml/L) 05/02/19 14:23 POC ABG Total CO2 30 (23-27mmol/L) 05/02/19 14:23 POC ABG O2 Sat 89 05/02/19 14:23 PT/INR, D-dimer PT 13.1 Sec. (12.2-14.9) 05/02/19 11:39 INR 1.02 (0.87-1.13) 05/02/19 11:39 D-Dimer 656.64 ng/mlDDU (0-234) H 05/02/19 11:39 Abnormal lab findings: Abnormal Labs 05/02/19 05/02/19 05/02/19 11:39 11:39 11:39 WBC 15.7 H RDW 15.4 H Lymph % (Auto) 4.9 L Lymph # 0.8 L Richardson # 0.9 H Seg Neutrophils % 89.5 H Seg Neutrophils # 14.1 H D-Dimer 656.64 H POC ABG pO2 Sodium 133 L Chloride 88.2 L BUN 23 H Glucose 309 H POC Glucose Hemoglobin A1c Lactic Acid Calcium Magnesium 1.50 L Total Bilirubin 1.30 H Total Creatine Kinase Albumin 3.7 L Urine WBC (Auto) Vancomycin Trough 05/02/19 05/02/19 05/02/19 11:39 12:06 12:40 WBC RDW Lymph % (Auto) Lymph # Richardson # Seg Neutrophils % Seg Neutrophils # D-Dimer POC ABG pO2 Sodium Chloride BUN Glucose POC Glucose Hemoglobin A1c Lactic Acid 2.20 H* Calcium Magnesium Total Bilirubin Total Creatine Kinase 333 H Albumin Urine WBC (Auto) 36.0 H Vancomycin Trough 05/02/19 05/02/19 05/02/19 13:40 14:18 14:23 WBC RDW Lymph % (Auto) Lymph # Richardson # Seg Neutrophils % Seg Neutrophils # D-Dimer POC ABG pO2 55 L Sodium Chloride BUN Glucose POC Glucose 322 H Hemoglobin A1c Lactic Acid 5.20 H* Calcium Magnesium Total Bilirubin Total Creatine Kinase Albumin Urine WBC (Auto) Vancomycin Trough 05/02/19 05/02/19 05/03/19 15:16 23:39 00:18 WBC RDW Lymph % (Auto) Lymph # [place] # Seg Neutrophils % Seg Neutrophils # D-Dimer POC ABG pO2 Sodium Chloride BUN Glucose 495 H POC Glucose > 500 H Hemoglobin A1c Lactic Acid 3.70 H* Calcium Magnesium Total Bilirubin Total Creatine Kinase Albumin Urine WBC (Auto) Vancomycin Trough 05/03/19 05/03/19 05/03/19 07:44 09:37 09:37 WBC 12.4 H RDW 15.7 H Lymph % (Auto) Lymph # [place] # Seg Neutrophils % Seg Neutrophils # D-Dimer POC ABG pO2 Sodium 133 L Chloride 92.3 L BUN 26 H Glucose 457 H POC Glucose 369 H Hemoglobin A1c Lactic Acid Calcium Magnesium Total Bilirubin Total Creatine Kinase Albumin Urine WBC (Auto) Vancomycin Trough 05/03/19 05/03/19 05/03/19 11:03 16:42 21:43 WBC RDW Lymph % (Auto) Lymph # Richardson # Seg Neutrophils % Seg Neutrophils # D-Dimer POC ABG pO2 Sodium Chloride BUN Glucose POC Glucose 389 H 326 H 398 H Hemoglobin A1c Lactic Acid Calcium Magnesium Total Bilirubin Total Creatine Kinase Albumin Urine WBC (Auto) Vancomycin Trough 05/04/19 05/04/19 05/04/19 06:00 06:00 06:00 WBC 11.8 H RDW 15.6 H Lymph % (Auto) Lymph # [place] # Seg Neutrophils % Seg Neutrophils # D-Dimer POC ABG pO2 Sodium Chloride 96.1 L BUN 25 H Glucose 439 H POC Glucose Hemoglobin A1c 10.3 H Lactic Acid Calcium 8.2 L Magnesium Total Bilirubin Total Creatine Kinase Albumin Urine WBC (Auto) Vancomycin Trough 05/04/19 05/04/19 05/04/19 08:06 12:11 16:13 WBC RDW Lymph % (Auto) Lymph # Richardson # Seg Neutrophils % Seg Neutrophils # D-Dimer POC ABG pO2 Sodium Chloride BUN Glucose POC Glucose 446 H 426 H 370 H Hemoglobin A1c Lactic Acid Calcium Magnesium Total Bilirubin Total Creatine Kinase Albumin Urine WBC (Auto) Vancomycin Trough 05/04/19 05/05/19 05/05/19 21:15 04:33 04:33 WBC 12.6 H RDW 15.4 H Lymph % (Auto) Lymph # Richardson # Seg Neutrophils % Seg Neutrophils # D-Dimer POC ABG pO2 Sodium Chloride 96.8 L BUN 27 H Glucose 309 H POC Glucose 356 H Hemoglobin A1c Lactic Acid Calcium 8.0 L Magnesium Total Bilirubin Total Creatine Kinase Albumin Urine WBC (Auto) Vancomycin Trough 05/05/19 05/05/19 05/05/19 07:37 11:51 13:06 WBC RDW Lymph % (Auto) Lymph # Richardson # Seg Neutrophils % Seg Neutrophils # D-Dimer POC ABG pO2 Sodium Chloride BUN Glucose POC Glucose 373 H 362 H Hemoglobin A1c Lactic Acid Calcium Magnesium Total Bilirubin Total Creatine Kinase Albumin Urine WBC (Auto) Vancomycin Trough 31.0 H 05/05/19 05/05/19 05/06/19 17:02 21:13 08:08 WBC RDW Lymph % (Auto) Lymph # Richardson # Seg Neutrophils % Seg Neutrophils # D-Dimer POC ABG pO2 Sodium Chloride BUN Glucose POC Glucose 413 H 364 H 240 H Hemoglobin A1c Lactic Acid Calcium Magnesium Total Bilirubin Total Creatine Kinase Albumin Urine WBC (Auto) Vancomycin Trough 05/06/19 05/06/19 05/06/19 11:58 16:40 21:16 WBC RDW Lymph % (Auto) Lymph # Richardson # Seg Neutrophils % Seg Neutrophils # D-Dimer POC ABG pO2 Sodium Chloride BUN Glucose POC Glucose 269 H 295 H 230 H Hemoglobin A1c Lactic Acid Calcium Magnesium Total Bilirubin Total Creatine Kinase Albumin Urine WBC (Auto) Vancomycin Trough 05/07/19 05/07/19 05/07/19 12:17 18:18 21:26 WBC RDW Lymph % (Auto) Lymph # [place] # Seg Neutrophils % Seg Neutrophils # D-Dimer POC ABG pO2 Sodium Chloride BUN Glucose POC Glucose 258 H 452 H 273 H Hemoglobin A1c Lactic Acid Calcium Magnesium Total Bilirubin Total Creatine Kinase Albumin Urine WBC (Auto) Vancomycin Trough 05/08/19 05/08/19 05/08/19 05:04 05:04 11:48 WBC 14.7 H RDW 15.6 H Lymph % (Auto) Lymph # Richardson # Seg Neutrophils % Seg Neutrophils # D-Dimer POC ABG pO2 Sodium Chloride BUN 22 H Glucose 57 L POC Glucose 187 H Hemoglobin A1c Lactic Acid Calcium 8.3 L Magnesium Total Bilirubin Total Creatine Kinase Albumin Urine WBC (Auto) Vancomycin Trough Chest x-ray: report reviewed, image reviewed
[2019-05-08] MEDS: DUONEB *Not for PRN Use IH SCH (17:26)
== END 2019-05-08 14:46 | disposition home or self-care (01) | DRG 871 ==
LOC: ED 11:12 → IMCU 13:51 → 3A 05-04 14:09
PROVIDERS: ADMIT Internal Medicine; ATTEND Internal Medicine
PROC: 4A033R1 Measurement of Arterial Saturation, Peripheral, Percutaneous Approach (ICD-10-PCS; principal; 2019-05-02)
DX: A41.9 Sepsis, unspecified organism (principal); J18.1 Lobar pneumonia, unspecified organism; J96.01 Acute respiratory failure with hypoxia; E87.1 Hypo-osmolality and hyponatremia; I50.42 Chronic combined systolic (congestive) and diastolic (congestive) heart failure; N39.0 Urinary tract infection, site not specified; J45.901 Unspecified asthma with (acute) exacerbation; J98.11 Atelectasis; E44.1 Mild protein-calorie malnutrition; E66.9 Obesity, unspecified; R07.89 Other chest pain; E78.2 Mixed hyperlipidemia; E11.649 Type 2 diabetes mellitus with hypoglycemia without coma; Z68.39 Body mass index [BMI] 39.0-39.9, adult; Z86.711 Personal history of pulmonary embolism; Z79.899 Other long term (current) drug therapy; Z82.49 Family history of ischemic heart disease and other diseases of the circulatory system
CPT/HCPCS: 36415; 71045; 71275; 80048; 80053; 80202; 81001; 82140; 82550; 82553; 82803; 82947; 82962; 83036; 83735; 83880; 84484; 85025; 85027; 85379; 85610; 85730; 87040; 87086; 87205; 93005; 93010; 94640; 94760; 96374; G0378; A9270-GY; J0692; J1650; J1815; J2185; J2920; J3370; J7030; J7040; J7050; J7512; Q9967